=== PATIENT | female | born 1990 | race Caucasian/White ===

== ENCOUNTER 2018-05-14 10:43 | Emergency (ER) | payer SELFPAY ==
--- NOTE | 2018-05-14 11:54 | ER ---
Nurse's Notes [facility] Name: Matt Avila Age: 28 yrs Sex: Female : 1990 Arrival Date: 05/14/2018 Time: 10:45 Bed 15 Private MD: Diagnosis: Influenza due to identified novel influenza A virus with other respiratory manifestations Presentation: 05/14 10:58 Presenting complaint: Patient states: I have been having a cough for the last three la1 days with subjective fever and started having lower back pain yesterday with no reported urinary sx. Transition of care: patient was not received from another setting of care. Onset of symptoms was May 14, 2018. Risk Assessment: Do you want to hurt yourself or someone else? Patient reports no desire to harm self or others. Initial Sepsis Screen: Does the patient meet any 2 criteria? No. Patient's initial sepsis screen is negative. Does the patient have a suspected source of infection? No. Patient's initial sepsis screen is negative. Care prior to arrival: None. 10:58 Method Of Arrival: Ambulatory la1 10:58 Acuity: JACQUELINE 3 la1 Historical: - Allergies: 11:00 No Known Allergies; la1 - PMHx: 11:00 None; la1 - Immunization history:: Adult Immunizations up to date. - Social history:: Smoking status: Patient uses tobacco products, smokes one pack cigarettes per day. - Ebola Screening: : No symptoms or risks identified at this time. Screenin:30 Abuse screen: Denies threats or abuse. Denies injuries from another. Nutritional jl7 screening: No deficits noted. Tuberculosis screening: No symptoms or risk factors identified. Fall Risk None identified. Assessment: 11:30 General: Appears in no apparent distress. uncomfortable, Behavior is calm, cooperative, jl7 appropriate for age. Pain: Denies pain. Neuro: Level of Consciousness is awake, alert, obeys commands, Oriented to person, place, time, situation. Cardiovascular: Patient's skin is warm and dry. Respiratory: Airway is patent Respiratory effort is even, unlabored, Respiratory pattern is regular, symmetrical. Derm: Skin is pink, warm \T\ dry. Vital Signs: 10:59 BP 128 / 86; Pulse 112; Resp 18; Temp 97.2; Pulse Ox 98% on R/A; Weight 81.65 kg; la1 Height 5 ft. 3 in. (160.02 cm); 10:59 Body Mass Index 31.89 (81.65 kg, 160.02 cm) la1 ED Course: 10:45 Patient arrived in ED. rg4 10:59 Triage completed. la1 10:59 Arm band placed on left wrist. la1 11:20 Maikel Vasquez, RN is Primary Nurse. jl7 11:26 Pito Chavez PA is PHCP. cp 11:26 Wilson Martel MD is Attending Physician. cp 11:30 Patient has correct armband on for positive identification. Bed in low position. Call jl7 light in reach. Side rails up X 1. Pulse ox on. NIBP on. 12:16 No provider procedures requiring assistance completed. Patient did not have IV access jl7 during this emergency room visit. Administered Medications: No medications were administered Outcome: 11:54 Discharge ordered by MD. cp 12:16 Discharged to home ambulatory. jl7 12:16 Condition: stable 12:16 Discharge instructions given to patient, family, Instructed on discharge instructions, follow up and referral plans. medication usage, Demonstrated understanding of instructions, follow-up care, medications, Prescriptions given X 2. 12:17 Patient left the ED. jl7 Signatures: Jos Rueda, RN RN la1 Pito Chavez PA PA cp Garcia, Rubi rg4 Maikel Vasquez, EYAD RN jl7
--- NOTE | 2018-05-14 11:54 | EDPHYS ---
Physician Documentation [facility] Name: Matt Avila Age: 28 yrs Sex: Female : 1990 Arrival Date: 05/14/2018 Time: 10:45 Bed 15 Private MD: ED Physician Wilson Martel HPI: 05/14 11:45 This 28 yrs old Female presents to ER via Ambulatory with complaints of Flu cp Symptoms. 11:45 The patient or guardian reports cough, that is intermittent. cp 11:45 Onset: The symptoms/episode began/occurred 3 day(s) ago. Associated signs and symptoms: cp Pertinent positives: sore throat, back pain, Pertinent negatives: chest pain, diarrhea, vomiting. Severity of symptoms: in the emergency department the symptoms are unchanged. Historical: - Allergies: 11:00 No Known Allergies; la1 - PMHx: 11:00 None; la1 - Immunization history:: Adult Immunizations up to date. - Social history:: Smoking status: Patient uses tobacco products, smokes one pack cigarettes per day. - Ebola Screening: : No symptoms or risks identified at this time. ROS: 11:48 Constitutional: Negative for fever, poor PO intake. cp 11:48 Eyes: Negative for injury, pain, redness, and discharge. cp 11:48 ENT: Positive for sore throat, Negative for drainage from ear(s), ear pain, difficulty swallowing, difficulty handling secretions. 11:48 Neck: Negative for pain with movement, pain at rest, stiffness. 11:48 Cardiovascular: Negative for chest pain. 11:48 Respiratory: Positive for cough, Negative for shortness of breath, wheezing. 11:48 Abdomen/GI: Negative for abdominal pain, nausea, vomiting, and diarrhea. 11:48 Back: Positive for pain at rest. 11:48 : Negative for urinary symptoms. 11:48 Skin: Negative for cellulitis, rash. 11:48 Neuro: Negative for altered mental status, headache. 11:48 All other systems are negative. Exam: 11:51 Constitutional: The patient appears in no acute distress, alert, awake, non-toxic, well cp developed, well nourished. 11:51 Head/Face: Normocephalic, atraumatic. cp 11:51 Eyes: Periorbital structures: appear normal, Conjunctiva: normal, no exudate, no injection, Sclera: no appreciated abnormality, Lids and lashes: appear normal, bilaterally. 11:51 ENT: External ear(s): are unremarkable, Ear canal(s): are normal, clear, TM's: bulging, is not appreciated, bilaterally, dullness, bilaterally, erythema, is not appreciated, bilaterally, Nose: is normal, Mouth: Lips: moist, Oral mucosa: moist, Posterior pharynx: Airway: no evidence of obstruction, patent, Tonsils: with erythema, no enlargement, no exudate, Uvula: normal, swelling, is not appreciated, erythema, that is mild, exudate, is not appreciated. 11:51 Neck: ROM/movement: is normal, is supple, without pain, no range of motions limitations, no meningismus, no nuchal rigidity. 11:51 Chest/axilla: Inspection: normal, Palpation: is normal, no crepitus, no tenderness. 11:51 Cardiovascular: Rate: tachycardic, Rhythm: regular. 11:51 Respiratory: the patient does not display signs of respiratory distress, Respirations: normal, no use of accessory muscles, no retractions, no splinting, no tachypnea, labored breathing, is not present, Breath sounds: are clear throughout, no decreased breath sounds, no stridor, no wheezing. 11:51 Abdomen/GI: Inspection: abdomen appears normal, Bowel sounds: normal, in all quadrants, Palpation: abdomen is soft and non-tender, in all quadrants. 11:51 Back: pain, that is mild, ROM is normal, CVA tenderness, is absent. 11:51 Skin: cellulitis, is not appreciated, no rash present. Vital Signs: 10:59 BP 128 / 86; Pulse 112; Resp 18; Temp 97.2; Pulse Ox 98% on R/A; Weight 81.65 kg; la1 Height 5 ft. 3 in. (160.02 cm); 10:59 Body Mass Index 31.89 (81.65 kg, 160.02 cm) la1 MDM: 11:30 Patient medically screened. cp 11:45 Differential diagnosis: bronchitis, pneumonia UTI, gastroenteritis, meningitis, cp influenza, strep throat. 11:54 Data reviewed: vital signs, nurses notes, lab test result(s), and as a result, I will cp discharge patient. 11:54 Counseling: I had a detailed discussion with the patient and/or guardian regarding: the cp historical points, exam findings, and any diagnostic results supporting the discharge/admit diagnosis, lab results, to return to the emergency department if symptoms worsen or persist or if there are any questions or concerns that arise at home. 05/14 11:00 Order name: Strep; Complete Time: 11:52 la 05/14 11:00 Order name: Flu; Complete Time: 11:52 mi05/14 11:52 Interpretation: Reviewed. 05/14 11:33 Order name: Throat Culture EDMS Administered Medications: No medications were administered Disposition: 18:54 Co-signature as Attending Physician, Wilson Martel MD. Disposition: 05/14/18 11:54 Discharged to Home. Impression: Influenza due to identified novel influenza A virus with other respiratory manifestations. - Condition is Stable. - Discharge Instructions: Influenza, Adult. - Prescriptions for Ibuprofen 800 mg Oral Tablet - take 1 tablet by ORAL route every 8 hours As needed take with food; 30 tablet. Tessalon Perles 100 mg Oral Capsule - take 1 capsule by ORAL route every 8 hours As needed; 15 capsule. - Medication Reconciliation Form, Thank You Letter, Antibiotic Education, Prescription Opioid Use form. - Follow up: Private Physician; When: 2 - 3 days; Reason: Worsening of condition. - Problem is new. - Symptoms are unchanged. Signatures: Dispatcher [employer] EDGA Jos Rueda RN RN la1 Pito Chavez PA PA cp Leal, Jahala, RN RN jl7 Wilson Martel MD MD Corrections: (The following items were deleted from the chart) 11:52 11:47 Urine Dipstick-Ancillary ordered. cp cp 11:52 11:47 Urine Test ordered. cp cp 12:17 11:54 05/14/2018 11:54 Discharged to Home. Impression: Influenza due to identified jl7 novel influenza A virus with other respiratory manifestations. Condition is Stable. Forms are Medication Reconciliation Form, Thank You Letter, Antibiotic Education, Prescription Opioid Use. Follow up: Private Physician; When: 2 - 3 days; Reason: Worsening of condition. Problem is new. Symptoms are unchanged. cp
[2018-05-14 12:23] VITALS: BP 128/86; TEMP 97.2; O2SAT 98
== END 2018-05-14 12:17 | disposition home or self-care (01) ==
LOC: ER 10:43
DX: J10.1 Influenza due to other identified influenza virus with other respiratory manifestations (principal); F17.210 Nicotine dependence, cigarettes, uncomplicated
CPT/HCPCS: 87070; 87081; 87804; 99283

== ENCOUNTER 2018-05-17 12:01 | Inpatient (IN) | payer SELFPAY ==
[2018-05-17] MEDS ORDERED: HYDROCODONE/CHLORPHEN 5 ML/OSYR ONE (12:41)
[2018-05-17] MEDS ORDERED: IBUPROFEN 200 MG TAB PO ONE (12:42)
[2018-05-17] MEDS ORDERED: IBUPROFEN 400 MG TAB ONE (12:42)
[2018-05-17] MEDS ORDERED: NA CHLORIDE 0.9% 1,000 ML ONE (12:42)
[2018-05-17 12:59] LABS: Absolute Lymphocytes (CBC) 0.4 K/uL (0.7-4.9); Absolute Monocytes 0.1 K/uL (0.1-1.3); Absolute Neutrophil 2.6 K/uL (1.8-8.0); Basophils % 0.3 % (0-1.3); Hematocrit 45.1 % (36.0-45.0); Lymphocytes % 11.8 % (15.3-44.8); MPV 10.9 fL (7.6-11.3); Monocytes % 3.5 % (3.3-12.3); RBC Red Blood Cell Count 5.44 M/uL (3.86-4.86)
[2018-05-17 13:04] LABS: Potassium 3.4 mmol/L (3.5-5.1)
--- NOTE | 2018-05-17 13:14 | RAD REPORT ---
EXAM DESCRIPTION: Edvin Jay And Lat (2 Views)05/17/2018 1:08 pm CLINICAL HISTORY: Cough COMPARISON: None FINDINGS: Bilateral predominately central alveolar opacities are present. The heart is normal size IMPRESSION: Moderate bilateral prominently central alveolar opacities likely represent pneumonia. Th is should be followed until it is clear to help exclude a post obstructive process/underlying mass
[2018-05-17 13:30] LABS: Blood Morphology Comment NOT SEEN (NOT SEEN); Platelet Estimate DECR; Urine White Blood Cell Casts OK
[2018-05-17] MEDS ORDERED: ACETAMINOPHEN 500 MG TAB ONE (13:57)
[2018-05-17] MEDS ORDERED: AZITHROMYCIN IV 500 MG in NA CHLORIDE 0.9% 250 ML IVPB ONE ×2 (14:00→15:00)
[2018-05-17] MEDS ORDERED: CEFTRIAXONE/SWI 1gm 1 GM/10 ML SYR ONE (14:05)
[2018-05-17] MEDS ORDERED: LEVALBUTEROL 1.25 MG/3 ML NEB ONE ×2 (14:47→15:43)
--- NOTE | 2018-05-17 15:42 | ER ---
Nurse's Notes [facility] Name: Matt Avila Age: 28 yrs Sex: Female : 1990 Arrival Date: 05/17/2018 Time: 12:04 Bed 17 Private MD: Diagnosis: Influenza due to identified novel influenza A virus;Pneumonia, unspecified organism Presentation: 05/17 12:10 Presenting complaint: Mother states: she has been short of breath for 6 days, she has tw2 this cough, she was here 3 days diagnosed with the flu, she is 10 times worse, she is nauseous. Transition of care: patient was not received from another setting of care. Onset of symptoms was May 17, 2018. Risk Assessment: Do you want to hurt yourself or someone else? Patient reports no desire to harm self or others. Initial Sepsis Screen: Does the patient meet any 2 criteria? RR > 20 per min. HR > 90 bpm. Yes Does the patient have a suspected source of infection? Yes: Productive cough/pneumonia. Care prior to arrival: None. 12:10 Method Of Arrival: Ambulatory tw2 12:10 Acuity: JACQUELINE 3 tw2 Triage Assessment: 12:12 General: Appears uncomfortable, Behavior is cooperative. Pain: Complains of pain in tw2 chest. Respiratory: Reports shortness of breath at rest cough that is Onset: The symptoms/episode began/occurred 6 days now, the patient has moderate shortness of breath. 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 - Social history:: Smoking status: Patient uses tobacco products, smokes one-half pack cigarettes per day. - Ebola Screening: : Patient denies travel to an Ebola-affected area in the 21 days before illness onset. Screenin:46 Abuse screen: Denies threats or abuse. Denies injuries from another. Nutritional jl7 screening: No deficits noted. Tuberculosis screening: No symptoms or risk factors identified. Fall Risk IV access (20 points). Total Bergeron Fall Scale indicates No Risk (0-24 pts). Assessment: 12:30 General: Appears in no apparent distress. uncomfortable, Behavior is calm, cooperative, jl7 appropriate for age. Pain: Complains of pain in chest Pain currently is 10 out of 10 on a pain scale. Quality of pain is described as "It hurts so bad from coughing so much.". Neuro: Level of Consciousness is awake, alert, obeys commands, Oriented to person, place, time, situation. Cardiovascular: Rhythm is regular. Respiratory: Airway is patent Respiratory effort is even, unlabored, Respiratory pattern is regular, tachypnea Breath sounds are clear. GI: No signs and/or symptoms were reported involving the gastrointestinal system. : No signs and/or symptoms were reported regarding the genitourinary system. EENT: No signs and/or symptoms were reported regarding the EENT system. Derm: Skin is pink, warm \\T\\ dry. 13:27 Reassessment: Critical lab: Plt 89, ERP notified. jl7 14:25 Reassessment: Patient appears in no apparent distress at this time. Patient and/or jl7 family updated on plan of care and expected duration. Pain level reassessed. Patient is alert, oriented x 3, equal unlabored respirations, skin warm/dry/pink. 15:03 Reassessment: Pt c/o of sever rib pain from coughing, pt appears anxious, instructed pt jl7 to slow breathing down, pt able to take slow deep breaths, ERP notified, no new orders received at this time. 16:00 Reassessment: Patient appears in no apparent distress at this time. Patient and/or jl7 family updated on plan of care and expected duration. Pain level reassessed. Patient is alert, oriented x 3, equal unlabored respirations, skin warm/dry/pink. Vital Signs: 12:11 BP 134 / 74; Pulse 133; Resp 24; Temp 100.2; Pulse Ox 95% on R/A; Weight 81.65 kg; tw2 Height 5 ft. 3 in. (160.02 cm); Pain 10/10; 13:31 BP 128 / 80; Pulse 114; Resp 19 S; Temp 102.9(O); Pulse Ox 94% on R/A; jl7 14:15 Resp 22 S; Pulse Ox 88% on R/A; jl7 14:25 Pulse 102; Resp 16 S; Temp 102.6(O); Pulse Ox 92% on 2 lpm NC; jl7 15:02 BP 104 / 59; Pulse 112; Resp 26 S; Temp 100.0(O); Pulse Ox 97% on R/A; jl7 16:00 BP 115 / 64; Pulse 107; Resp 24 S; Pulse Ox 90% on R/A; jl7 16:07 Pulse Ox 93% on 2 lpm NC; jl7 12:11 Body Mass Index 31.89 (81.65 kg, 160.02 cm) tw2 ED Course: 12:04 Patient arrived in ED. rg4 12:11 Triage completed. tw2 12:12 Arm band placed on. tw2 12:14 Chaim Olea NP is PHCP. pm1 12:14 Jake Bernal MD is Attending Physician. pm1 12:19 Maikel Vasquez RN is Primary Nurse. jl7 12:30 Initial lab(s) drawn, by al, sent to lab. Inserted saline lock: 22 gauge in right jl7 antecubital area, using aseptic technique. Blood collected. 12:46 Patient has correct armband on for positive identification. Placed in gown. Bed in low jl7 position. Call light in reach. Side rails up X 1. Pulse ox on. NIBP on. Warm blanket given. 13:08 X-ray completed. Patient tolerated procedure well. Patient moved back from radiology. jb2 13:08 Chest Pa And Lat (2 Views) XRAY In Process Unspecified. EDMS 15:40 Eva Perry MD is Hospitalizing Provider. pm1 17:14 No provider procedures requiring assistance completed. Patient admitted, IV remains in jl7 place. intact, No redness/swelling at site. Administered Medications: 12:43 Drug: Ibuprofen 600 mg Route: PO; jl7 13:45 Follow up: Response: No adverse reaction; Temperature is increased jl7 12:43 Drug: NS 0.9% 1000 ml Route: IV; Rate: 1000 ml; Site: right antecubital; jl7 13:32 Follow up: IV Status: Completed infusion jl7 13:45 Follow up: IV Status: Completed infusion jl7 12:43 Drug: Tussionex Pennkinetic ER 5 ml Route: PO; jl7 13:32 Follow up: Response: No adverse reaction; No change in condition jl7 13:45 Drug: Tylenol 1000 mg Route: PO; jl7 15:00 Follow up: Response: No adverse reaction; Temperature is decreased jl7 14:20 Drug: Rocephin 1 grams Route: IV; Rate: calculated rate; Site: right antecubital; jl7 14:23 Follow up: Response: No adverse reaction; IV Status: Completed infusion jl7 14:25 Drug: AZITHromycin 500 mg Route: IVPB; Infused Over: 1 hrs; Site: right antecubital; jl7 15:25 Follow up: Response: No adverse reaction; IV Status: Completed infusion jl7 14:32 Drug: Xopenex 1.25 mg Route: Inhalation; jl7 17:11 Follow up: Response: No adverse reaction jl7 15:50 Drug: Xopenex 1.25 mg Route: Inhalation; jl7 17:10 Follow up: Response: No adverse reaction jl7 Outcome: 15:41 Decision to Hospitalize by Provider. pm1 17:14 Admitted to Med/surg accompanied by tech, via stretcher, room 223, with oxygen, with jl7 chart, Report called to EYAD Rhoades 17:14 Condition: stable 17:14 Discharge instructions given to patient, family, Instructed on the need for admit, Demonstrated understanding of instructions. 17:15 Patient left the ED. jl7 Signatures: Dispatcher [employer] EDGopi Morgan Patrick, PROFESSIONAL BASS FISHER PROFESSIONAL BASS FISHER pm1 Johana Newell RN RN elio2 Julieth Pineda rg4 Maikel Vasquez RN RN jl7
--- NOTE | 2018-05-17 15:42 | EDPHYS ---
Physician Documentation [facility] Name: Matt Avila Age: 28 yrs Sex: Female : 1990 Arrival Date: 05/17/2018 Time: 12:04 Bed 17 Private MD: ED Physician Jake Bernal HPI: 05/17 15:30 This 28 yrs old Female presents to ER via Ambulatory with complaints of pm1 Shortness Of Breath. 15:30 The patient has shortness of breath at rest. Onset: The symptoms/episode began/occurred pm1 6 day(s) ago. Duration: The symptoms are continuous, and are steadily getting worse. The patient's shortness of breath is aggravated by light activity, is alleviated by nothing. Associated signs and symptoms: Pertinent positives: non-productive cough, fever, Pertinent negatives: nausea, vomiting, diarrhea. Severity of symptoms: in the emergency department the symptoms are worse. The patient has not experienced similar symptoms in the past. The patient has been recently seen at the [facility] Emergency Department, 3 days ago with cough, fever, and shortness of breath with a duration of symptoms for 3 days. Diagnosed with the flu. 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 - Social history:: Smoking status: Patient uses tobacco products, smokes one-half pack cigarettes per day. - Ebola Screening: : Patient denies travel to an Ebola-affected area in the 21 days before illness onset. ROS: 15:30 Eyes: Negative for injury, pain, redness, and discharge, ENT: Negative for injury, pm1 pain, and discharge, Neck: Negative for injury, pain, and swelling, Cardiovascular: Negative for chest pain, palpitations, and edema. 15:30 Abdomen/GI: Negative for abdominal pain, nausea, vomiting, diarrhea, and constipation, Back: Negative for injury and pain, : Negative for injury, bleeding, discharge, and swelling, MS/Extremity: Negative for injury and deformity, Skin: Negative for injury, rash, and discoloration, Neuro: Negative for headache, weakness, numbness, tingling, and seizure. 15:30 Constitutional: Positive for body aches, chills, fever, poor PO intake. 15:30 Respiratory: Positive for cough, shortness of breath. Exam: 15:30 Constitutional: This is a well developed, well nourished patient who is awake, alert, pm1 and in no acute distress. Head/Face: Normocephalic, atraumatic. Eyes: Pupils equal round and reactive to light, extra-ocular motions intact. Lids and lashes normal. Conjunctiva and sclera are non-icteric and not injected. Cornea within normal limits. Periorbital areas with no swelling, redness, or edema. ENT: Nares patent. No nasal discharge, no septal abnormalities noted. Tympanic membranes are normal and external auditory canals are clear. Oropharynx with no redness, swelling, or masses, exudates, or evidence of obstruction, uvula midline. Mucous membranes moist. Neck: Trachea midline, no thyromegaly or masses palpated, and no cervical lymphadenopathy. Supple, full range of motion without nuchal rigidity, or vertebral point tenderness. No Meningismus. Chest/axilla: Normal chest wall appearance and motion. Nontender with no deformity. No lesions are appreciated. Cardiovascular: Regular rate and rhythm with a normal S1 and S2. No gallops, murmurs, or rubs. Normal PMI, no JVD. No pulse deficits. Respiratory: Lungs have equal breath sounds bilaterally, clear to auscultation and percussion. No rales, rhonchi or wheezes noted. No increased work of breathing, no retractions or nasal flaring. Abdomen/GI: Soft, non-tender, with normal bowel sounds. No distension or tympany. No guarding or rebound. No evidence of tenderness throughout. Back: No spinal tenderness. No costovertebral tenderness. Full range of motion. Skin: Warm, dry with normal turgor. Normal color with no rashes, no lesions, and no evidence of cellulitis. MS/ Extremity: Pulses equal, no cyanosis. Neurovascular intact. Full, normal range of motion. 15:30 Neuro: Orientation: is normal, Motor: is normal, moves all fours. Vital Signs: 12:11 BP 134 / 74; Pulse 133; Resp 24; Temp 100.2; Pulse Ox 95% on R/A; Weight 81.65 kg; tw2 Height 5 ft. 3 in. (160.02 cm); Pain 10/10; 13:31 BP 128 / 80; Pulse 114; Resp 19 S; Temp 102.9(O); Pulse Ox 94% on R/A; jl7 14:15 Resp 22 S; Pulse Ox 88% on R/A; jl7 14:25 Pulse 102; Resp 16 S; Temp 102.6(O); Pulse Ox 92% on 2 lpm NC; jl7 15:02 BP 104 / 59; Pulse 112; Resp 26 S; Temp 100.0(O); Pulse Ox 97% on R/A; jl7 16:00 BP 115 / 64; Pulse 107; Resp 24 S; Pulse Ox 90% on R/A; jl7 16:07 Pulse Ox 93% on 2 lpm NC; jl7 12:11 Body Mass Index 31.89 (81.65 kg, 160.02 cm) tw2 MDM: 12:15 Patient medically screened. pm1 15:25 Data reviewed: vital signs. Data interpreted: Pulse oximetry: on room air is 97 %. pm1 Interpretation: normal. 15:33 Counseling: I had a detailed discussion with the patient and/or guardian regarding: the pm1 historical points, exam findings, and any diagnostic results supporting the discharge/admit diagnosis, lab results, radiology results, the need for further work-up and treatment in the hospital. 15:33 Physician consultation: Eva Perry MD was called at 15:35, was contacted at 15:35, pm1 regarding admission, patient's condition, and will see patient would like further tests performed, urine test. 05/17 12:25 Order name: BMP; Complete Time: 13:20 pm1 05/17 12:25 Order name: CBC with Diff; Complete Time: 13:40 pm1 05/17 13:28 Order name: CBC Smear Scan; Complete Time: 13:40 EDMS 05/17 13:45 Order name: Blood Culture Adult (2) pm1 05/17 13:45 Order name: Procalcitonin; Complete Time: 15:18 pm1 05/17 16:03 Order name: Urine Dipstick--Ancillary (enter results) bd 05/17 12:25 Order name: Chest Pa And Lat (2 Views) XRAY; Complete Time: 13:20 pm1 05/17 16:03 Order name: Urine --Ancillary (enter results) bd 05/17 12:25 Order name: IV Saline Lock; Complete Time: 12:43 pm1 05/17 15:32 Order name: Urine Dipstick-Ancillary (obtain specimen); Complete Time: 16:00 pm1 05/17 15:32 Order name: Urine Test (obtain specimen); Complete Time: 16:00 pm1 Administered Medications: 12:43 Drug: Ibuprofen 600 mg Route: PO; jl7 13:45 Follow up: Response: No adverse reaction; Temperature is increased jl7 12:43 Drug: NS 0.9% 1000 ml Route: IV; Rate: 1000 ml; Site: right antecubital; jl7 13:32 Follow up: IV Status: Completed infusion jl7 13:45 Follow up: IV Status: Completed infusion jl7 12:43 Drug: Tussionex Pennkinetic ER 5 ml Route: PO; jl7 13:32 Follow up: Response: No adverse reaction; No change in condition jl7 13:45 Drug: Tylenol 1000 mg Route: PO; jl7 15:00 Follow up: Response: No adverse reaction; Temperature is decreased jl7 14:20 Drug: Rocephin 1 grams Route: IV; Rate: calculated rate; Site: right antecubital; jl7 14:23 Follow up: Response: No adverse reaction; IV Status: Completed infusion jl7 14:25 Drug: AZITHromycin 500 mg Route: IVPB; Infused Over: 1 hrs; Site: right antecubital; jl7 15:25 Follow up: Response: No adverse reaction; IV Status: Completed infusion jl7 14:32 Drug: Xopenex 1.25 mg Route: Inhalation; jl7 17:11 Follow up: Response: No adverse reaction jl7 15:50 Drug: Xopenex 1.25 mg Route: Inhalation; jl7 17:10 Follow up: Response: No adverse reaction jl7 Disposition: 18:53 Co-signature as Attending Physician, Jake Bernal MD Available for consultation at ps1 all times. . Disposition: 05/17/18 15:41 Hospitalization ordered by Eva Perry for Observation. Preliminary diagnosis are Pneumonia, unspecified organism, Influenza due to identified novel influenza A virus. - Bed requested for Telemetry/MedSurg (observation). - Status is Observation. jl7 - Condition is Stable. - Problem is new. - Symptoms have improved. UTI on Admission? No Signatures: Dispatcher [employer] EDMS Chichi Borden Chaim Henson, SHOE MAKER SHOE MAKER pm1 Johana Newell, RN RN tw2 Maikel Vasquez, RN RN jl7 Jake Bernal MD MD ps1 Corrections: (The following items were deleted from the chart) 16:26 15:41 Hospitalization Ordered by Eva Perry MD for Observation. Preliminary diagnosis bd is Pneumonia, unspecified organismInfluenza due to identified novel influenza A virus. Bed requested for Telemetry/MedSurg (observation). Status is Observation. Condition is Stable. Problem is new. Symptoms have improved. UTI on Admission? No. pm1 17:15 16:26 05/17/2018 15:41 Hospitalization Ordered by Eva Perry MD for Observation. jl7 Preliminary diagnosis is Pneumonia, unspecified organismInfluenza due to identified novel influenza A virus. Bed requested for Telemetry/MedSurg (observation). Status is Observation. Condition is Stable. Problem is new. Symptoms have improved. UTI on Admission? No. bd
[2018-05-17] MEDS: NA CHLORIDE 0.9% 1,000 ML IV SCH (18:40)
[2018-05-17 19:25] LABS: Urine Appearance CLEAR; Urine Bilirubin NEGATIVE (NEG); Urine Blood TRACE (NEG); Urine Color YELLOW; Urine Glucose NEGATIVE (NEG); Urine Protein 1+ (NEG); Urine Urobilinogen 0.2 mg/dL (0.2-1.0)
[2018-05-17 19:38] LABS: Urine Bacteria <20 /HPF (<20); Urine Culture Reflex Order REFLEXED; Urine Mucus 2+ /HPF (NONE SEEN)
[2018-05-17] MEDS: IPRATROPIUM BROM 0.5MG/2.5ML NEB PRN (21:00)
[2018-05-17] MEDS ORDERED: CEFTRIAXONE/SWI 1gm 1 GM/10 ML SYR IVP SCH (21:00)
[2018-05-17] MEDS ORDERED: POTASSIUM 25 MEQ EFFERV TAB PO ONE (21:00)
[2018-05-17] MEDS: ALBUTEROL 2.5 MG/3 ML NEB SOL NEB PRN (21:00)
[2018-05-17] MEDS: ACETAMINOPHEN 500 MG TAB PO PRN (22:23)
[2018-05-17] MEDS: guaiFENesin 100 MG/5 ML UCUP PO PRN (22:34)
--- NOTE | 2018-05-18 01:07 | P.PN ---
Date of Service: 05/18/18 I was called to evaluate the patient because she was dyspneic, on oxymask 50% O2sat was 88%. At arrival the patient was tachypneic, using accessory muscles, short sentences speaking. Physical exam revealed bilateral crackles. I will transfer the patient to ICU for close monitoring. Will order new flu test, last one was positive on 05/14/18. Despite her symptoms started 6 days ago, she has complicated flu, and still has indication to receive antiviral medication, according to recommendations. Will also add vancomycin, for potential MRSA post- influenza infection. Will order ABG, CXR and BiPAP. time in ICU spending 45 minutes.
[2018-05-18] MEDS: OSELTAMIVIR 75 MG CAP PO SCH ×3 (01:42→21:53)
[2018-05-18] MEDS ORDERED: VANCOMYCIN 1 GM/VIAL ONE (02:23)
[2018-05-18] MEDS ORDERED: NA CHLORIDE 0.9% 500 ML ONE (02:24)
[2018-05-18] MEDS ORDERED: VANCOMYCIN 500 MG/VIAL ONE (02:28)
[2018-05-18 02:41] LABS: Arterial Blood Carboxyhemoglob 0.9 % (0-1.5); Blood Gas Oxyhemoglobin 93.1 % (94-97); Blood O2 Saturation 94.6 % (92-98.5)
[2018-05-18] MEDS ORDERED: VANCOMYCIN 1.5 GM in NA CHLORIDE 0.9% 500 ML IVPB SCH ×2 (03:00→09:00)
[2018-05-18] MEDS: PHENOL 1.4% ORAL SPRAY 180ML MM PRN (03:13)
[2018-05-18] MEDS ORDERED: LORazepam 2 MG/ML VIAL IV ONE (03:44)
[2018-05-18] MEDS: NA CHLORIDE 0.9% 1,000 ML IV SCH (04:04)
[2018-05-18] MEDS ORDERED: LORazepam 2 MG/ML VIAL ONE (04:08)
--- NOTE | 2018-05-18 04:09 | HP ---
Date of Admission: 05/17/2018 Chief Complaint: Shortness of breath, generalized malaise, influenza. History Of Present Illness: The patient is a 28-year-old female with no significant past medical history, who was in her usual state of health until 3 days prior to admission when the patient was seen in the ER and was diagnosed with influenza. She was past the initial phase and therefore was not treated with Tamiflu after she was given symptomatic treatment. However, from the visit in the ER, she has been having progressive shortness of breath, generalized malaise, nausea but no vomiting, decreased appetite, and having pain all over. The patient's symptoms are constant, moderate, progressively worsening, therefore she came into the ER for further evaluation. She was somewhat hypoxic at 89% on room air. She was tachycardic. She was given some IV fluids. Her labs showed some low sodium and potassium. Did not have an elevated white count. Her chest x-ray did show some pneumonia in central alveolar area. The patient was then started on IV antibiotics and referred for admission. Past Medical History: None. Surgical History: None. Allergies: NO KNOWN DRUG ALLERGIES. Medications: The patient has been taking [id number] TheraFlu. Social History: The patient smokes 1 pack per day. Has been smoking for over 10 years. No alcohol or illicit drug use. Family History: Cousin has diabetes. Review of Systems: An 11-point system reviewed, negative except as per HPI. Physical Examination: Vital Signs: Blood pressure 134/74, pulse 133, respirations 24, temperature 100.2, T-max was 102.9, O2 is 95% on room air. BMI is 31. General: Awake, alert, oriented x3. Ill-appearing female, appears older than her stated age. HEENT: Normocephalic, atraumatic PERRLA, EOMI. Dry mucous membranes. Oropharynx is clear. Poor dentition. Conjunctivae anicteric. Neck: Supple. No JVD. Trachea midline. CV: S1, S2. Sinus tachycardia. Peripheral pulses present. No murmurs. Respiratory: Diminished breath sounds. No wheezing. The patient is tachypneic with use of accessory muscles. No stridor. Gastrointestinal: Abdomen is soft, nontender, nondistended. Positive bowel sounds. No guarding or rigidity. Extremities: No clubbing, cyanosis, or edema. No calf tenderness. Neuro: Cranial nerves 2 through 12 intact grossly. No focal neurological deficits. Speech is normal. Skin: No rashes. Normal skin turgor. Laboratory Data: Sodium 130, potassium 3.4, chloride 98, CO2 is 23, BUN 10, glucose 116, calcium 8.2. Procalcitonin 0.14. WBC 3.1, H and H 15.3 and 45.1, platelets 89, neutrophils 84%. Urine test negative. Blood cultures, sputum cultures are pending. Chest x-ray, personally reviewed, shows moderate bilateral prominent central alveolar opacities likely represent pneumonia. 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 Assessment And Plan: A 28-year-old female with: 1. Pneumonia secondary to influenza. We will start on Rocephin and azithromycin. Obtain cultures. 2. Hypoxia with some respiratory distress. Continue supplemental oxygen. Likely secondary to above. 3. Influenza. We will place on droplet precautions. The patient is also at the window for Tamiflu. 4. Obesity, BMI 31.8. 5. Hyponatremia. We will replace and monitor. 6. Hypokalemia. We will replace and monitor. 7. Deep vein thrombosis prophylaxis with SCDs and Lovenox. Plan: Admit the patient to Med-Surg, place as observation. DONALD Voice ID: [id number] MTDD
[2018-05-18 05:16] LABS: Absolute Lymphocytes (CBC) 0.5 K/uL (0.7-4.9); Absolute Monocytes 0.1 K/uL (0.1-1.3); Absolute Neutrophil 2.6 K/uL (1.8-8.0); Basophils % 0.2 % (0-1.3); Hematocrit 40.2 % (36.0-45.0); Lymphocytes % 14.7 % (15.3-44.8); MPV 10.8 fL (7.6-11.3); Monocytes % 2.1 % (3.3-12.3); RBC Red Blood Cell Count 4.81 M/uL (3.86-4.86)
[2018-05-18] MEDS ORDERED: NA CHLORIDE 0.9% 0 ML ONE (05:17)
[2018-05-18] MEDS ORDERED: PIPERACIL/TAZO 3.375 GM VIAL IV ONE (05:17)
[2018-05-18 05:30] LABS: ALT/SGPT 47 U/L (12-78); AST/SGOT 210 U/L (15-37); Albumin 2.6 g/dL (3.4-5.0); Alkaline Phosphatase 93 U/L (45-117); BUN Blood Urea Nitrogen 8 mg/dL (7-18); Bicarbonate 21 mmol/L (21-32); Bilirubin Total 0.3 mg/dL (0.2-1.0); Glucose Level 89 mg/dL (74-106); Potassium 3.5 mmol/L (3.5-5.1); Protein, Total 5.5 g/dL (6.4-8.2); Sodium Level 133 mmol/L (136-145)
[2018-05-18] MEDS ORDERED: PIPER/TAZO/NS 3.375gm 3.375 GM/100 ML BAG IVPB SCH ×3 (06:00→17:00)
[2018-05-18] MEDS ORDERED: POTASSIUM 25 MEQ EFFERV TAB PO ONE (06:05)
[2018-05-18] MEDS: ALBUTEROL 2.5 MG/3 ML NEB SOL NEB PRN ×2 (08:05→13:38)
[2018-05-18] MEDS: IPRATROPIUM BROM 0.5MG/2.5ML NEB PRN ×2 (08:06→13:38)
--- NOTE | 2018-05-18 08:17 | RAD REPORT ---
EXAM DESCRIPTION: RAD - Chest Single View - 05/18/2018 1:08 am CLINICAL HISTORY: SOB Chest pain. COMPARISON: Chest Pa And Lat (2 Views) dated 05/17/2018 FINDINGS: Portable technique limits examination quality. Mild worsening in bilateral pulmonary opacities noted since comparative study, likely indicating wors ening pneumonia or pulmonary edema. The heart is normal in size. No displaced fractures. IMPRESSION: Mild worsening pulmonary aeration since yesterday's comparative study.
[2018-05-18] MEDS: guaiFENesin 100 MG/5 ML UCUP PO PRN (08:18)
--- NOTE | 2018-05-18 08:42 | P.CNS ---
Date of Consult: 05/18/18 Reason for Consult: Respiratory failure Chief Complaint: Cough shortness of breath History of Present Illness: Patient is 28 years of age diagnosed with the flu admit it with worsening cough shortness of breath appear in the ICU a respiratory failure very hypoxic complains of fever chills bodyaches patient is an active smoker no prior medical history Allergies No Known Allergies Allergy (Verified 05/17/18 18:00) Home Medications: NK [No Home Meds] 05/17/18 - Past Medical/Surgical History Diabetic: No Past Surgical History: Reviewed- Non-Contributory - Social History Smoking Status: Current every day smoker Alcohol use: No CD- Drugs: No Caffeine use: Yes Place of Residence: Home Review of Systems 10-point ROS is otherwise unremarkable General: Weakness Respiratory: Cough, Shortness of Breath Physical Examination Temp Pulse Resp BP Pulse Ox 100 F 111 H 34 H 115/70 95 05/18/18 04:00 05/18/18 06:00 05/18/18 06:00 05/18/18 06:00 05/18/18 06:00 General: Alert, Moderate distress HEENT: Atraumatic Neck: Supple Respiratory: Clear to auscultation bilaterally, Diminished Cardiovascular: No edema, Regular rate/rhythm, Normal S1 S2 Laboratory Data (last 24 hrs) 05/18/18 04:49: Sodium 133 L, Potassium 3.5, BUN 8, Creatinine 0.68, Glucose 89 , Total Bilirubin 0.3, AST 210 H, ALT 47, Alkaline Phosphatase 93 05/18/18 04:49: WBC 3.1 L, Hgb 13.5, Hct 40.2, Plt Count 67 L* D 05/17/18 12:40: WBC 3.1 L, Hgb 15.3 H, Hct 45.1 H, Plt Count 89 L* 05/17/18 12:40: Sodium 130 L, Potassium 3.4 L, BUN 10, Creatinine 0.95, Glucose 116 H - Problems (1) Respiratory failure Current Visit: Yes Status: Acute Plan: Patient is 28 years of age admitted with acute respiratory failure diffuse bilateral ground-glass changes continue with BiPAP Dc IV fluids maintenance slight negative fluid balance continue with IV Zithromax and p.o. doxycycline bronchodilators BiPAP patient is an active smoker I have added prednisone patient has significant tattoos important to rule out HIV infection serum LDH ordered Qualifiers: Chronicity: acute
[2018-05-18] MEDS ORDERED: LORazepam 2 MG/ML VIAL IV PRN (08:45)
[2018-05-18] MEDS ORDERED: AZITHROMYCIN IV 500 MG in NA CHLORIDE 0.9% 250 ML IVPB SCH (09:00)
[2018-05-18] MEDS ORDERED: predniSONE 20 MG TAB PO SCH (09:00)
[2018-05-18] MEDS: METHYLPREDNISOLONE 40 MG INJ IV SCH ×2 (09:28→17:08)
[2018-05-18] MEDS: DOXYCYCLINE 100 MG CAP PO SCH ×2 (10:25→21:53)
[2018-05-18] MEDS: LORazepam 2 MG/ML VIAL IV PRN (11:24)
--- NOTE | 2018-05-18 13:04 | ECHO ---
HEIGHT: 5 ft 3 in WEIGHT: 178 lb 9.6 oz DATE OF STUDY: 05/18/[address]: Danny Zafar MD 2-DIMENSIONAL: YES M.MODE: YES DOPPLER: YES COLOR FLOW: YES TDS: NO PORTABLE: NO DEFINITY: NO BUBBLE STUDY: NO DIAGNOSIS: RESPIRATORY FAILURE CARDIAC HISTORY: CATHERIZATION: NO SURGERY: NO PROSTHETIC VALVE: NO PACEMAKER: NO MEASUREMENTS (cm) DIASTOLIC (NORMALS) SYSTOLIC (NORMALS) IVSd 1.0 (0.6-1.2) LA Diam 2.3 (1.9-4.0) LVEF 67% LVIDd 3.8 (3.5-5.7) LVIDs 2.4 (2.0-3.5) %FS 36% LVPWd 1.2 (0.6-1.2) Ao Diam 2.6 (2.0-3.7) 2 DIMENSIONAL ASSESSMENT: RIGHT ATRIUM: NORMAL LEFT ATRIUM: NORMAL RIGHT VENTRICLE: NORMAL LEFT VENTRICLE: NORMAL TRICUSPID VALVE: NORMAL MITRAL VALVE: NORMAL PULMONIC VALVE: NORMAL AORTIC VALVE: NORMAL PERICARDIAL EFFUSION: NONE AORTIC ROOT: NORMLA LEFT VENTRICULAR WALL MOTION: NORMAL DOPPLER/COLOR FLOW: NORMAL COMMENTS: NORMAL 2D ECHOCARDIOGRAM WITH DOPPLER. NO WALL MOTION ABNORMALITY. NO EFFUSION. TECHNOLOGIST: Marta WATTS
[2018-05-18] MEDS: ACETAMINOPHEN 500 MG TAB PO PRN (14:50)
--- NOTE | 2018-05-18 15:15 | PN ---
Date of Progress Note: 05/18/2018 History: The patient had deterioration in her condition overnight, and was transferred to the ICU, p laced on BiPAP. The patient reports worsening breathing. Medications: List reviewed. Physical Examination: Vital Signs: Temperature 100, heart rate 111, respirations 34, blood pressure 115/74, O2 saturations 95% on BiPAP, 45% FiO2. General: Awake, alert, oriented x3, ill-appearing female, obese, BMI 31. CV: S1, S2. Sinus tachycardia. Peripheral pulses present. Respiratory: Diminished breath sounds. Rhonchi heard throughout. No wheezing. The patient is slig htly tachypneic. Gastrointestinal: Abdomen is soft, nontender, nondistended. Positive bowel sounds. No guarding. N o rigidity. Extremities: No clubbing, cyanosis, or edema. Neurologic: Nonfocal. Laboratory Data: Sodium 133, potassium 3.5, chloride 103, CO2 21, BUN 8, creatinine 0.68, glucose 89 , lactate 1.6, calcium 7.1, LDH greater than 1000, albumin 2.6. ABG; pH 7.46, pCO2 27, PO2 71, bicar b 19. WBC 3.1, H and H 13.5 and 40.2, platelets 67, neutrophils 83%. Assessment: A 28-year-old female with: 1.Acute respiratory failure with hypoxia. We will continue on BiPAP, wean off as tolerated, seconda ry to post-influenza pneumonia. 2.Influenza A, start Tamiflu. 3.Post-influenza pneumonia. Continue antibiotics. Appreciate Dr. Zafar's input. 4.Pancytopenia, unclear etiology. The patient has white count of 3.1, neutrophils, absolute neutrop hil count is 2.6, platelets are down to 67, may be related to current infection. 5.Hyponatremia, improving. 6.Hypokalemia. We will replace and monitor. 7.Obesity, BMI 31.8. 8.Moderate protein-calorie malnutrition. Albumin is 2.6. Plan: Continue to monitor in ICU setting. Monitor for signs of ARDS. Steroids have been added due to patient's history of smoking and wheezing. Family at the bedside, updated. SA/MODL Voice ID: [id number] Report ID: [id number]
[2018-05-19] MEDS: ONDANSETRON 4 MG/2 ML VIAL IV PRN (00:24)
[2018-05-19] MEDS: LORazepam 2 MG/ML VIAL IV PRN ×4 (00:27→21:24)
[2018-05-19] MEDS: METHYLPREDNISOLONE 40 MG INJ IV SCH ×3 (00:27→17:33)
[2018-05-19 05:13] LABS: Absolute Lymphocytes (CBC) 0.7 K/uL (0.7-4.9); Absolute Monocytes 0.5 K/uL (0.1-1.3); Absolute Neutrophil 3.6 K/uL (1.8-8.0); Basophils % 0.2 % (0-1.3); Eosinophils % 0.1 % (0-4.4); Hematocrit 43.3 % (36.0-45.0); Lymphocytes % 14.7 % (15.3-44.8); MPV 11.1 fL (7.6-11.3); Monocytes % 10.7 % (3.3-12.3); RBC Red Blood Cell Count 5.13 M/uL (3.86-4.86)
[2018-05-19 05:28] LABS: ALT/SGPT 65 U/L (12-78); AST/SGOT 236 U/L (15-37); Albumin 2.8 g/dL (3.4-5.0); Alkaline Phosphatase 101 U/L (45-117); BUN Blood Urea Nitrogen 11 mg/dL (7-18); Bicarbonate 29 mmol/L (21-32); Bilirubin Total 0.4 mg/dL (0.2-1.0); Glucose Level 125 mg/dL (74-106); Potassium 4.4 mmol/L (3.5-5.1); Protein, Total 6.2 g/dL (6.4-8.2); Sodium Level 138 mmol/L (136-145)
[2018-05-19 05:43] LABS: Magnesium 2.3 mg/dL (1.8-2.4)
[2018-05-19] MEDS: DOXYCYCLINE 100 MG CAP PO SCH (09:02)
[2018-05-19] MEDS: OSELTAMIVIR 75 MG CAP PO SCH ×2 (09:02→21:10)
[2018-05-19 10:27] LABS: Arterial Blood Carboxyhemoglob 0.8 % (0-1.5); Blood Gas Oxyhemoglobin 95.1 % (94-97); Blood O2 Saturation 96.4 % (92-98.5)
--- NOTE | 2018-05-19 10:30 | RAD REPORT ---
EXAM DESCRIPTION: RAD - Chest Single View - 05/19/2018 10:22 am CLINICAL HISTORY: Pneumonia COMPARISON: May 18 TECHNIQUE: AP portable chest image was obtained 1020 hours . FINDINGS: Right upper lobe pneumonia findings have partially cleared since prior day study. There re sharmila patchy opacification in the lower right lung field. Left base pneumonia changes are stable. The re is better aeration of the left upper lung field. Heart size and pulmonary vasculature within normal limits. No measurable pleural effusion and no pneumothorax. No acute bony abnormality seen. No acute aortic findings suspected. IMPRESSION: Partial clearing of bilateral upper lobe pneumonia findings since prior day imaging. Bilateral lung base pneumonia findings are stable.
[2018-05-19] MEDS ORDERED: SOD CHLORIDE 0.65% NASAL SPRAY NAS PRN (11:34)
[2018-05-19] MEDS: ACETAMINOPHEN 500 MG TAB PO PRN (11:56)
[2018-05-19] MEDS ORDERED: SMZ./TMP. 800/160 MG TABLET PO SCH (12:08)
--- NOTE | 2018-05-19 12:14 | P.PN ---
Subjective Date of Service: 05/21/18 Chief Complaint: Pneumonia Patient's condition is stable she is still requiring high concentrations of oxygen was on BiPAP this morning Review of Systems General: Weakness Respiratory: Shortness of Breath Physical Examination - Vital Signs Temperature: 98.7 F Blood Pressure: 108/82 Pulse: 102 Respirations: 29 Pulse Ox (%): 100 - Physical Exam General: Alert, Cooperative, Moderate distress Neck: Supple Respiratory: Clear to auscultation bilaterally Cardiovascular: No edema, Normal pulses Assessment & Plan - Problems (Diagnosis) (1) Respiratory failure Current Visit: Yes Status: Acute Plan: Patient is doing much better she is off the BiPAP on nasal cannula oxygen shortness of breath has improved his HIV in a I have decreased the Levaquin to 500 mg daily change to p.o. prednisone transfer to the floor possible discharge in 1 or 2 days evaluate daily room air pulse ox Qualifiers: Chronicity: acute
--- NOTE | 2018-05-19 13:39 | PN ---
Date of Progress Note: 05/19/2018 Subjective: The patient is seen and examined. Chart reviewed and case discussed with RN and Dr. Servando fuentes. The patient is now off BiPAP, however, still requiring Venturi mask, states her breathing is still not back to baseline. Medications: List reviewed. Physical Examination: Vital Signs: Temperature 98.7, heart rate 102, blood pressure 108/82, respirations 29, and O2 of 100 % on Venturi mask at 50% FiO2. General: Awake, alert, and oriented x3, ill-appearing female, obese, BMI 31.5. CV: S1 and S2. Sinus tachycardia. Peripheral pulses present. No murmurs. Respiratory: Moving air well. Diminished breath sounds at the bases. No wheezing or crackles. Gastrointestinal: Abdomen is soft, nontender, and nondistended. Positive bowel sounds. Extremities: No clubbing, cyanosis, or edema. Neurologic: Nonfocal. Laboratory Data: Sodium 138, potassium 4.4, chloride 103, CO2 of 29, BUN 11, creatinine 0.7, glucose 125, calcium 8.4, and albumin 2.8. WBC 4.8, H and H of 14.4 and 43.3, platelets 92, neutrophils 74% . ABG; pH 7.48, PCO2 of 34, PO2 of 81, and bicarb 24. Blood cultures, no growth to date. Sputum cu ltures, pending. Chest x-ray, personally reviewed, shows partial clearing of the bilateral upper lob e pneumonia findings since prior day imaging, bilateral lung base pneumonia findings are stable. Assessment And Plan: A 28-year-old female with, 1.Acute respiratory failure with hypoxia. Wean off BiPAP. The patient is still requiring Venturi m ask secondary to post influenza pneumonia. Differential diagnosis includes PCP pneumonia. 2.Influenza A. Continue Tamiflu. 3.Pneumonia, likely post influenza or possibly PCP pneumonia. The patient has risk factors for jhon n immunodeficiency virus. The patient has been started on high-dose Bactrim. I appreciate Dr. Aidan fagan's input. 4.Thrombocytopenia and leukopenia, improving. 5.Hyponatremia. Sodium has been corrected. We will continue to monitor. 6.Hypokalemia, corrected. 7.Obesity, BMI 31.8. 8.Moderate protein-calorie malnutrition. Albumin is 2.6. PLAN: We will continue to monitor in the ICU setting. Wean off Ventimask as tolerated. Once on sara al cannula, can step down to the floor. Echocardiogram shows EF of 67%, otherwise no wall motion abn ormality. SA/MODL Voice ID: [id number] Report ID: [id number]
--- NOTE | 2018-05-19 14:11 | RAD REPORT ---
EXAM DESCRIPTION: CT - Thorax Wo Con - 05/19/2018 1:52 pm CLINICAL HISTORY: Pneumonia, possible PCP COMPARISON: Chest film May 19 TECHNIQUE: Axial 5 mm thick images of the chest were obtained without IV contrast. All CT scans are performed using dose optimization technique as appropriate and may include automated exposure control or mA/KV adjustment according to patient size. FINDINGS: Bilateral ground-glass opacities are scattered in both upper lobes. There are multiple irr egularly marginated consolidated mass densities in each upper lobe up to 20 mm in size. In each lower lobe there are more consolidated areas of airspace opacification present in the perihilar regions. M ultiple air bronchograms are present. There is septal thickening and ground-glass lower lobe opacific ation as well. No cavitation or pneumatocele formation identifiable. No pleural thickening or pleural effusion. No pneumothorax. Small nonspecific mediastinal lymph nodes are present. No endobronchial lesion. No gross aortic or pu lmonary artery finding suspected. Assessment is limited in the absence of IV contrast. No pericardia l thickening or effusion. No chest wall mass or abnormal axillary lymphadenopathy. IMPRESSION: Ground-glass opacification, septal thickening and multiple areas of an consolidated pare nchyma throughout all lung vo. Pattern would be consistent with the clinically suspected pneumocystis pneumonia. No cavitation or pneumatocele formation identifiable.
[2018-05-19] MEDS: SMZ./TMP. 800/160 MG TABLET PO SCH ×2 (15:33→21:10)
[2018-05-19] MEDS: guaiFENesin 100 MG/5 ML UCUP PO PRN (17:33)
[2018-05-20] MEDS: METHYLPREDNISOLONE 40 MG INJ IV SCH ×3 (00:21→17:45)
[2018-05-20 04:59] LABS: Absolute Lymphocytes (CBC) 0.9 K/uL (0.7-4.9); Absolute Monocytes 1.4 K/uL (0.1-1.3); Absolute Neutrophil 9.7 K/uL (1.8-8.0); Hematocrit 38.8 % (36.0-45.0); Lymphocytes % 7.4 % (15.3-44.8); MPV 10.2 fL (7.6-11.3); Monocytes % 11.9 % (3.3-12.3); RBC Red Blood Cell Count 4.64 M/uL (3.86-4.86)
[2018-05-20 05:18] LABS: ALT/SGPT 105 U/L (12-78); AST/SGOT 255 U/L (15-37); Albumin 2.7 g/dL (3.4-5.0); Alkaline Phosphatase 96 U/L (45-117); BUN Blood Urea Nitrogen 20 mg/dL (7-18); Bicarbonate 25 mmol/L (21-32); Bilirubin Total 0.4 mg/dL (0.2-1.0); Glucose Level 114 mg/dL (74-106); Magnesium 2.6 mg/dL (1.8-2.4); Potassium 3.8 mmol/L (3.5-5.1); Protein, Total 5.9 g/dL (6.4-8.2); Sodium Level 137 mmol/L (136-145)
[2018-05-20 08:01] LABS: HIV 1/2 Antibody Diff Not indicated.; HIV AG/AB 4TH GEN Non-reactive (Non-reactive)
[2018-05-20] MEDS: OSELTAMIVIR 75 MG CAP PO SCH ×2 (08:45→20:18)
[2018-05-20] MEDS: SMZ./TMP. 800/160 MG TABLET PO SCH (08:46)
[2018-05-20] MEDS: ACETAMINOPHEN 500 MG TAB PO PRN ×2 (08:46→17:45)
[2018-05-20] MEDS: guaiFENesin 100 MG/5 ML UCUP PO PRN (08:51)
[2018-05-20] MEDS ORDERED: POTASSIUM CL SA 10 MEQ TAB PO ONE (09:00)
[2018-05-20] MEDS ORDERED: Levofloxacin 750mg IV 750 MG/150 ML BAG IV SCH (11:00)
--- NOTE | 2018-05-20 13:20 | PN ---
Date of Progress Note: 05/20/2018 History: The patient seen and examined. Chart reviewed and case discussed with RN and Dr. Zafar. The patient seems to be doing better today, and has been off the BiPAP, however, still remains hypo xic with nasal cannula, has been switched back to Venti mask. Medications: List reviewed. Physical Examination: Vital Signs: Temperature 97.8, heart rate 99, blood pressure 112/70, respirations 25, O2 92% on Vent uri mask, 40% FiO2. General: Awake, alert, oriented x3. Mild respiratory distress. Ill-appearing, obese female. CV: S1, S2. Sinus tachycardia. Peripheral pulses present. Respiratory: Diminished breath sounds. Some rhonchi heard. No wheezing or crackles. The patient i s tachypneic with use of accessory muscles. Gastrointestinal: Abdomen is soft, nontender, nondistended. Positive bowel sounds. No guarding or rigidity. Extremities: No clubbing, cyanosis, or edema. Neurologic: Nonfocal. Laboratory Data: Sodium 137, potassium 3.8, chloride 103, CO2 25, BUN 20, creatinine 0.66, glucose 1 14, calcium 7.9, magnesium 2.6, AST 255, ALT 105, albumin 2.7. WBCs 12, H and H 13 and 38.8, platele ts 126, neutrophils 80%. Blood cultures, no growth to date. Assessment And Plan: A 28-year-old female with: 1.Acute respiratory failure with hypoxia. We will continue Venti mask as she is hypoxic on nasal ca nnula secondary to post-influenza pneumonia. The patient was switched to Bactrim yesterday for possi ble Pneumocystis carinii pneumonia. However, human immunodeficiency virus screening is negative. We will discontinue Bactrim and switch over to Levaquin. 2.Influenza A. We will continue Tamiflu and droplet precautions. 3.Pneumonia, post-influenza. 4.Thrombocytopenia, improving. No signs of bleeding. 5.Obesity, BMI 31.8. 6.Moderate protein calorie malnutrition. Albumin is improving. Plan: We will continue weaning off Venti mask as tolerated. For now, she is unable to switch back t o nasal cannula. Will likely step-down to regular floor if her O2 saturations remain stable. SA/MODL Voice ID: [id number] Report ID: [id number]
[2018-05-20] MEDS: LORazepam 2 MG/ML VIAL IV PRN (20:19)
[2018-05-21] MEDS: ACETAMINOPHEN 500 MG TAB PO PRN ×2 (00:14→05:19)
[2018-05-21] MEDS: METHYLPREDNISOLONE 40 MG INJ IV SCH ×2 (00:14→09:04)
[2018-05-21] MEDS: IPRATROPIUM BROM 0.5MG/2.5ML NEB PRN ×2 (02:36→07:56)
[2018-05-21] MEDS: ALBUTEROL 2.5 MG/3 ML NEB SOL NEB PRN ×2 (02:36→07:56)
[2018-05-21 05:30] LABS: Absolute Lymphocytes (CBC) 0.4 K/uL (0.7-4.9); Absolute Monocytes 0.8 K/uL (0.1-1.3); Absolute Neutrophil 7.1 K/uL (1.8-8.0); Basophils % 0.1 % (0-1.3); Hematocrit 36.9 % (36.0-45.0); Lymphocytes % 4.6 % (15.3-44.8); MPV 10.6 fL (7.6-11.3); Monocytes % 9.4 % (3.3-12.3); RBC Red Blood Cell Count 4.37 M/uL (3.86-4.86)
[2018-05-21 05:58] LABS: ALT/SGPT 108 U/L (12-78); AST/SGOT 119 U/L (15-37); Albumin 2.8 g/dL (3.4-5.0); Alkaline Phosphatase 83 U/L (45-117); BUN Blood Urea Nitrogen 20 mg/dL (7-18); Bicarbonate 22 mmol/L (21-32); Bilirubin Total 0.3 mg/dL (0.2-1.0); Glucose Level 165 mg/dL (74-106); Magnesium 2.7 mg/dL (1.8-2.4); Potassium 3.8 mmol/L (3.5-5.1); Protein, Total 5.9 g/dL (6.4-8.2); Sodium Level 136 mmol/L (136-145)
[2018-05-21 05:59] VITALS: BMI 29.9
[2018-05-21] MEDS ORDERED: DICYCLOMINE HCL 10 MG CAP PO ONE (09:00)
[2018-05-21] MEDS ORDERED: POTASSIUM CL SA 10 MEQ TAB PO ONE (09:00)
[2018-05-21] MEDS: OSELTAMIVIR 75 MG CAP PO SCH ×2 (09:04→20:20)
[2018-05-21] MEDS: predniSONE 20 MG TAB PO SCH ×2 (11:51→20:20)
[2018-05-21] MEDS: levoFLOXacin 500 MG TAB PO SCH (11:52)
--- NOTE | 2018-05-21 12:30 | PN ---
Patient seen and examined, chart reviewed and case discussed with RN. The patient is feeling signifi cantly better. Medications: List reviewed. Physical Examination: Vital Signs: Temperature 98.7, heart rate 102, blood pressure 108/82, respirations 29, O2 of 100% on 3 L via nasal cannula. General: Awake, alert, oriented x3. Minimal respiratory distress. CV: S1-S2. Sinus tachycardia. Peripheral pulses present. Respiratory: Diminished breath sounds and some rhonchi heard. No wheezing. Gastrointestinal: Abdomen is soft, nontender, nondistended. Positive bowel sounds. Extremities: No clubbing, cyanosis, or edema. Neurologic: Nonfocal. Laboratory Data: Sodium 136, potassium 3.8, chloride 104, CO2 22, BUN 28, creatinine 0.7, calcium 7. 8, magnesium 2.7. AST 119, ALT 108. WBC 8.2, H and H 12.3, 36.9, platelets 145. Blood cultures neg ative to date. Assessment And Plan: A 28-year-old female with 1.Acute respiratory failure with hypoxia, now on nasal cannula. We will continue to wean off as jacinto erated. 2.Influenza A. Continue Tamiflu, droplet precautions. 3.Pneumonia post influenza. Continue Levaquin. 4.Thrombocytopenia, improving. 5.Obesity, BMI 31.8. 6.Moderate protein-calorie malnutrition. Albumin is 2.8, improving. Continue with protein suppleme ntation. Plan: Transfer to regular floor likely discharge in the next 24-48 hours. /DEYVI Voice ID: [id number] Report ID: [id number]
[2018-05-21] MEDS: HYDROCODONE/APAP 7.5/325 MG TAB PO PRN (16:54)
--- NOTE | 2018-05-21 18:06 | RAD REPORT ---
EXAM DESCRIPTION: RAD - Abdomen 1 View (KUB) - 05/21/2018 5:53 pm CLINICAL HISTORY: Abdomen pain. FINDINGS: The bowel gas pattern is unremarkable. No abnormal calcification is displayed
[2018-05-21] MEDS: LORazepam 2 MG/ML VIAL IV PRN (20:27)
[2018-05-21] MEDS: PHENOL 1.4% ORAL SPRAY 180ML MM PRN (20:28)
[2018-05-22] MEDS: HYDROCODONE/APAP 7.5/325 MG TAB PO PRN ×3 (04:35→18:13)
[2018-05-22 06:33] LABS: ALT/SGPT 87 U/L (12-78); AST/SGOT 57 U/L (15-37); Albumin 2.8 g/dL (3.4-5.0); Alkaline Phosphatase 72 U/L (45-117); BUN Blood Urea Nitrogen 16 mg/dL (7-18); Bicarbonate 25 mmol/L (21-32); Bilirubin Total 0.5 mg/dL (0.2-1.0); Glucose Level 122 mg/dL (74-106); Potassium 4.7 mmol/L (3.5-5.1); Protein, Total 5.8 g/dL (6.4-8.2); Sodium Level 138 mmol/L (136-145)
[2018-05-22] MEDS: OSELTAMIVIR 75 MG CAP PO SCH ×2 (08:50→20:57)
[2018-05-22] MEDS: levoFLOXacin 500 MG TAB PO SCH (08:50)
[2018-05-22] MEDS: predniSONE 20 MG TAB PO SCH ×2 (08:51→20:57)
[2018-05-22] MEDS ORDERED: DOCUSATE NA 100 MG CAP PO PRN (09:20)
[2018-05-22] MEDS ORDERED: POLYETHYL GLY 3350 17 GM/DOSE PO PRN (09:20)
[2018-05-22] MEDS: ONDANSETRON 4 MG/2 ML VIAL IV PRN ×2 (11:42→21:00)
[2018-05-22] MEDS: PHENOL 1.4% ORAL SPRAY 180ML MM PRN (11:43)
[2018-05-22] MEDS: guaiFENesin 100 MG/5 ML UCUP PO PRN (11:43)
--- NOTE | 2018-05-22 17:20 | PN ---
Date of Progress Note: 05/22/2018 Subjective: The patient seen and examined, chart reviewed, and case discussed with RN and Dr. Lion ernst. The patient states she is doing better, however, still complaining of some abdominal pain, which is radiating towards her back. Medications: List reviewed. Objective: Vital Signs: Temperature 97.1, heart rate 63, blood pressure 123/69, respirations 18, O2 of 95% on 4 L via nasal cannula. General: Awake, alert, oriented x3. Mildly ill appearing female. CV: S1, S2. Regular rate and rhythm. Peripheral pulses present. Respiratory: Moving air well bilaterally. No wheezing or stridor. Gastrointestinal: Abdomen is soft. Mild tenderness to palpation. No rebound or guarding. Bowel so unds positive. Extremities: No clubbing, cyanosis, or edema. Neurologic: Nonfocal. Laboratory Data: Sodium 138, potassium 4.7, chloride 105, CO2 25, BUN 16, creatinine 0.55, glucose 1 28, calcium 7.6, AST 57, ALT 87, albumin 2.8. WBC 8.2, H and H 12.3, 36.9, platelets 145. Blood cul tures, no growth to date. KUB from 05/21/2018 shows no abnormal calcification displayed. Bowel gas pattern is normal. Assessment: A 28-year-old female with, 1.Acute respiratory failure with hypoxia. Now switched over to nasal cannula. We will continue to wean off as tolerated improving. 2.Influenza A. We will continue Tamiflu and droplet precautions. 3.Pneumonia post influenza. Continue Levaquin. 4.Thrombocytopenia, improving. 5.Generalized abdominal pain, unclear etiology. KUB is negative. The patient is constipated. We w ill give trial of stool softeners. 6.Obesity, BMI of 31.8. 7.Moderate protein-calorie malnutrition. Albumin 2.8. 8.Elevated liver enzymes, improving, likely due to acute medical condition. Plan: We will continue steroids and antibiotics. Continue Tamiflu for now. Wean off oxygen. Likel y discharge in next 24-48 hours. SA/MODL Voice ID: [id number] Report ID: [id number]
[2018-05-23] MEDS: ONDANSETRON 4 MG/2 ML VIAL IV PRN ×2 (00:34→21:57)
[2018-05-23] MEDS: HYDROCODONE/APAP 7.5/325 MG TAB PO PRN ×4 (00:42→22:39)
[2018-05-23] MEDS: levoFLOXacin 500 MG TAB PO SCH (07:51)
[2018-05-23] MEDS: predniSONE 20 MG TAB PO SCH ×2 (07:51→20:48)
--- NOTE | 2018-05-23 10:10 | RAD REPORT ---
EXAM DESCRIPTION: Edvin Single View05/23/2018 9:58 am CLINICAL HISTORY: Shortness of breath COMPARISON: May 19, 2018 FINDINGS: Bilateral pulmonary opacities have partially resolved. The heart is normal size IMPRESSION: Partial resolution in bilateral pulmonary opacities which may represent ARDS, pneumonia or pulmonary edema
[2018-05-23] MEDS: ACETAMINOPHEN 500 MG TAB PO PRN (12:44)
--- NOTE | 2018-05-23 15:04 | P.PN ---
Subjective Date of Service: 05/23/18 Chief Complaint: Pneumonia Subjective: No C/O voiced, Improving Patient seen and examined at bedside. No family at bedside. Chart reviewed and case discussed with nursing staff. Review of Systems 10-point ROS is otherwise unremarkable Physical Examination - Vital Signs Temperature: 97.8 F Blood Pressure: 104/59 Pulse: 68 Respirations: 17 Pulse Ox (%): 96 - Physical Exam General: Alert, In no apparent distress, Oriented x3 HEENT: Atraumatic, PERRLA, EOMI Neck: Supple, JVD not distended Respiratory: Clear to auscultation bilaterally, Normal air movement Cardiovascular: Regular rate/rhythm, Normal S1 S2 Gastrointestinal: Normal bowel sounds, No tenderness Musculoskeletal: No tenderness Integumentary: No rashes Neurological: Normal speech, Normal tone, Normal affect Lymphatics: No axilla or inguinal lymphadenopathy - Studies Microbiology Data (last 24 hrs): 05/17/18 14:20 Blood - Blood Aerobic Blood Culture - Final No growth in 5 days. 05/17/18 14:20 Blood - Blood Anaerobic Blood Culture - Final No growth in 5 days. 05/17/18 14:05 Blood - Blood Aerobic Blood Culture - Final No growth in 5 days. 05/17/18 14:05 Blood - Blood Anaerobic Blood Culture - Final No growth in 5 days. Assessment And Plan - Current Problems (Diagnosis) (1) Respiratory failure Current Visit: Yes Status: Acute Qualifiers: Chronicity: acute (2) Hypoxia Current Visit: Yes Status: Acute (3) Influenza A Current Visit: Yes Status: Acute (4) Pneumonia Current Visit: Yes Status: Acute Qualifiers: Pneumonia type: due to unspecified organism Laterality: unspecified laterality Lung location: unspecified part of lung Qualified Code(s): J18.9 - Pneumonia, unspecified organism (5) Thrombocytopenia Current Visit: Yes Status: Acute (6) Obesity (BMI 30-39.9) Current Visit: Yes Status: Chronic (7) Protein calorie malnutrition Current Visit: Yes Status: Acute Qualifiers: Protein-calorie malnutrition severity: moderate Qualified Code(s): E44.0 - Moderate protein-calorie malnutrition (8) Elevated LFTs Current Visit: Yes Status: Acute - Plan This is a 28-year-old female with: Acute respiratory failure with hypoxia Improving the continues to desire with exertion, even on nasal cannula Now on 4 L nasal cannula. We will continue to wean as tolerated. Influenza A Patient completed a course of Tamiflu. Continue supportive care is needed Pneumonia, post influenza Continue Levaquin Thrombocytopenia Improving Obesity, BMI of 31.8. Moderate protein-calorie malnutrition. Albumin 2.8. Elevated liver enzymes, improving, likely due to acute medical condition. DVT prophylaxis: None encourage ambulation GI prophylaxis: None Diet: Regular Disposition: Continue steroids and antibiotics. Continue to wean off oxygen. We will discharge home once weaned off oxygen. Discharge Plan: Home
[2018-05-23] MEDS: guaiFENesin 100 MG/5 ML UCUP PO PRN (20:53)
[2018-05-23] MEDS: PHENOL 1.4% ORAL SPRAY 180ML MM PRN (20:55)
[2018-05-23] MEDS: LORazepam 2 MG/ML VIAL IV PRN (22:44)
[2018-05-24] MEDS: HYDROCODONE/APAP 7.5/325 MG TAB PO PRN ×4 (04:40→22:33)
[2018-05-24] MEDS: guaiFENesin 100 MG/5 ML UCUP PO PRN ×2 (04:41→20:00)
[2018-05-24] MEDS: PHENOL 1.4% ORAL SPRAY 180ML MM PRN (04:42)
[2018-05-24 07:55] LABS: Absolute Monocytes 0.7 K/uL (0.1-1.3); Absolute Neutrophil 10.6 K/uL (1.8-8.0); Basophils % 0.1 % (0-1.3); Eosinophils % 0.7 % (0-4.4); Lymphocytes % 8.1 % (15.3-44.8); MPV 9.6 fL (7.6-11.3); Monocytes % 5.7 % (3.3-12.3); RBC Red Blood Cell Count 5.13 M/uL (3.86-4.86)
[2018-05-24 08:10] LABS: BUN Blood Urea Nitrogen 16 mg/dL (7-18); Bicarbonate 28 mmol/L (21-32); Glucose Level 98 mg/dL (74-106); Potassium 4.3 mmol/L (3.5-5.1); Sodium Level 137 mmol/L (136-145)
[2018-05-24 08:56] LABS: Platelet Estimate ADEQ
[2018-05-24 08:57] LABS: Blood Morphology Comment NOT SEEN (NOT SEEN); Platelets, Giant PRESENT; Urine White Blood Cell Casts OK
[2018-05-24] MEDS: predniSONE 20 MG TAB PO SCH ×2 (09:32→20:00)
[2018-05-24] MEDS: levoFLOXacin 500 MG TAB PO SCH (09:32)
--- NOTE | 2018-05-24 12:59 | P.PN ---
Subjective Date of Service: 05/24/18 Chief Complaint: Pneumonia Subjective: No C/O voiced, Improving Patient seen and examined at bedside. No family at bedside. Chart reviewed and case discussed with nursing staff. Review of Systems 10-point ROS is otherwise unremarkable Physical Examination - Vital Signs Temperature: 97.4 F Blood Pressure: 112/77 Pulse: 69 Respirations: 18 Pulse Ox (%): 95 - Physical Exam General: Alert, In no apparent distress, Oriented x3 HEENT: Atraumatic, PERRLA, EOMI Neck: Supple, JVD not distended Respiratory: Clear to auscultation bilaterally, Normal air movement Cardiovascular: Regular rate/rhythm, Normal S1 S2 Gastrointestinal: Normal bowel sounds, No tenderness Musculoskeletal: No tenderness Integumentary: No rashes Neurological: Normal speech, Normal tone, Normal affect Lymphatics: No axilla or inguinal lymphadenopathy Assessment And Plan - Current Problems (Diagnosis) (1) Respiratory failure Current Visit: Yes Status: Acute Qualifiers: Chronicity: acute (2) Hypoxia Current Visit: Yes Status: Acute (3) Influenza A Current Visit: Yes Status: Acute (4) Pneumonia Current Visit: Yes Status: Acute Qualifiers: Pneumonia type: due to unspecified organism Laterality: unspecified laterality Lung location: unspecified part of lung Qualified Code(s): J18.9 - Pneumonia, unspecified organism (5) Thrombocytopenia Current Visit: Yes Status: Acute (6) Obesity (BMI 30-39.9) Current Visit: Yes Status: Chronic (7) Protein calorie malnutrition Current Visit: Yes Status: Acute Qualifiers: Protein-calorie malnutrition severity: moderate Qualified Code(s): E44.0 - Moderate protein-calorie malnutrition (8) Elevated LFTs Current Visit: Yes Status: Acute - Plan This is a 28-year-old female with: Acute respiratory failure with hypoxia Continues to improve. Now on 2 L nasal cannula. We will continue to wean as tolerated. Influenza A Patient completed a course of Tamiflu. Continue supportive care as needed Pneumonia, post influenza Continue Levaquin Thrombocytopenia Improving Obesity, BMI of 31.8. Moderate protein-calorie malnutrition. Albumin 2.8. Elevated liver enzymes, improving, likely due to acute medical condition. DVT prophylaxis: None encourage ambulation GI prophylaxis: None Diet: Regular Disposition: Continue steroids and antibiotics. Continue to wean off oxygen. We will discharge home once weaned off oxygen.
[2018-05-24] MEDS: ACETAMINOPHEN 500 MG TAB PO PRN (19:59)
[2018-05-25] MEDS: ACETAMINOPHEN 500 MG TAB PO PRN (01:21)
[2018-05-25] MEDS: guaiFENesin 100 MG/5 ML UCUP PO PRN (01:25)
[2018-05-25] MEDS: PHENOL 1.4% ORAL SPRAY 180ML MM PRN (01:26)
[2018-05-25] MEDS: HYDROCODONE/APAP 7.5/325 MG TAB PO PRN ×2 (03:56→10:18)
[2018-05-25 08:15] VITALS: O2SAT 91
[2018-05-25] MEDS: levoFLOXacin 500 MG TAB PO SCH (09:33)
[2018-05-25] MEDS: predniSONE 20 MG TAB PO SCH (09:34)
[2018-05-25 10:30] VITALS: BP 113/60; TEMP 97.6
--- NOTE | 2018-05-25 14:23 | P.DS ---
Admission Date: 05/18/18 Discharge Date: 05/25/18 Disposition: ROUTINE DISCHARGE Discharge Condition: GOOD Reason for Admission: Pneumonia Consultations: Pulmonology - Problems (1) Respiratory failure Status: Acute Qualifiers: Chronicity: acute (2) Hypoxia Status: Acute (3) Influenza A Status: Acute (4) Pneumonia Status: Acute Qualifiers: Pneumonia type: due to unspecified organism Laterality: unspecified laterality Lung location: unspecified part of lung Qualified Code(s): J18.9 - Pneumonia, unspecified organism (5) Thrombocytopenia Status: Acute (6) Obesity (BMI 30-39.9) Status: Chronic (7) Protein calorie malnutrition Status: Acute Qualifiers: Protein-calorie malnutrition severity: moderate Qualified Code(s): E44.0 - Moderate protein-calorie malnutrition (8) Elevated LFTs Status: Acute Brief History of Present Illness: The patient is a 28-year-old female with no significant past medical history, who was in her usual state of health until 3 days prior to admission when the patient was seen in the ER and was diagnosed with influenza. She was past the initial phase and therefore was not treated with Tamiflu after she was given symptomatic treatment. However, from the visit in the ER, she has been having progressive shortness of breath, generalized malaise, nausea but no vomiting, decreased appetite, and having pain all over. The patient's symptoms are constant, moderate, progressively worsening, therefore she came into the ER for further evaluation. She was somewhat hypoxic at 89% on room air. She was tachycardic. She was given some IV fluids. Her labs showed some low sodium and potassium. Did not have an elevated white count. Her chest x-ray did show some pneumonia in central alveolar area. The patient was then started on IV antibiotics and referred for admission Hospital Course: Patient was admitted with: Acute respiratory failure with hypoxia She was started on IV steroids, IV antibiotics and Tamiflu. She was provided oxygen. Initially, she did require BiPAP usage. She was weaned off BiPAP and converted to nasal cannula. She was eventually weaned off of oxygen. Prior to discharge, she was satting well on room air, even with exertion. Influenza A Patient completed a course of Tamiflu. Pneumonia, post influenza Patient was started on IV antibiotics. Antibiotics was converted to oral Levaquin. She was discharged on oral Levaquin to complete a 7 day course. She otherwise remains stable throughout the stay. At the time of discharge, patient was alert oriented x3, hemodynamically stable and satting well on room air. She was ambulating without concerns, tolerating an oral diet and was asymptomatic. Vital Signs/Physical Exam: Temp Pulse Resp BP Pulse Ox 97.6 F 71 18 113/60 97 05/25/18 08:34 05/25/18 08:34 05/25/18 08:34 05/25/18 08:34 05/25/18 08:34 General: Alert, In no apparent distress, Oriented x3 HEENT: Atraumatic, PERRLA, EOMI Neck: Supple, JVD not distended Respiratory: Clear to auscultation bilaterally, Normal air movement Cardiovascular: Regular rate/rhythm, Normal S1 S2 Gastrointestinal: Normal bowel sounds, No tenderness Musculoskeletal: No tenderness Integumentary: No rashes Neurological: Normal speech, Normal tone, Normal affect Lymphatics: No axilla or inguinal lymphadenopathy Laboratory Data at Discharge: WBC 12.4 K/uL (4.3-10.9) H D 05/24/18 07:34 Hgb 14.3 g/dL (12.0-15.0) 05/24/18 07:34 Hct 43.0 % (36.0-45.0) D 05/24/18 07:34 Plt Count 264 K/uL (152-406) D 05/24/18 07:34 Sodium 137 mmol/L (136-145) 05/24/18 07:34 Potassium 4.3 mmol/L (3.5-5.1) 05/24/18 07:34 BUN 16 mg/dL (7-18) 05/24/18 07:34 Creatinine 0.56 mg/dL (0.55-1.3) 05/24/18 07:34 Glucose 98 mg/dL (74-106) 05/24/18 07:34 Magnesium 2.7 mg/dL (1.8-2.4) H 05/21/18 04:59 Total Bilirubin 0.5 mg/dL (0.2-1.0) 05/22/18 05:38 AST 57 U/L (15-37) H 05/22/18 05:38 ALT 87 U/L (12-78) H 05/22/18 05:38 Alkaline Phosphatase 72 U/L (45-117) 05/22/18 05:38 Home Medications: levoFLOXacin [Levaquin*] 500 mg PO DAILY #2 tab 05/25/18 predniSONE [Prednisone*] 20 mg PO BID #14 tab 05/25/18 New Medications: levoFLOXacin [Levaquin*] 500 mg PO DAILY #2 tab predniSONE [Prednisone*] 20 mg PO BID #14 tab Patient Discharge Instructions: Please follow up with your primary care physician in 2-3 days. Please follow up with Pulmonology in 2 weeks. Information provided to you. Please return tot he ER for worsening symptoms. Diet: Regular Activity: Ad rossy Followup: Danny Zafar MD [ACTIVE - CAN ADMIT] - 1-2 Weeks Time spent managing pt's care (in minutes): 55
== END 2018-05-25 11:30 | disposition home or self-care (01) | DRG 193 ==
LOC: ER 12:01 → ERHOLD 15:44 → 2ND 16:53 → 3RD-ICU 05-18 00:45 → OBSVTOIN 05-18 07:16 → 2ND 05-21 17:05
PROVIDERS: ADMIT Family Medicine; ATTEND Family Medicine
PROC: 5A09457 Assistance with Respiratory Ventilation, 24-96 Consecutive Hours, Continuous Positive Airway Pressure (ICD-10-PCS; principal; 2018-05-18)
DX: J09.X1 Influenza due to identified novel influenza A virus with pneumonia (principal); J96.01 Acute respiratory failure with hypoxia; E44.0 Moderate protein-calorie malnutrition; E87.1 Hypo-osmolality and hyponatremia; D61.818 Other pancytopenia; D69.6 Thrombocytopenia, unspecified; R94.5 Abnormal results of liver function studies; Z68.31 Body mass index [BMI] 31.0-31.9, adult; F17.210 Nicotine dependence, cigarettes, uncomplicated; E87.6 Hypokalemia
CPT/HCPCS: 36415; 71045; 71046; 71250; 74018; 80048; 80053; 81001; 81025; 82805; 83605; 83615; 83735; 84145; 85025; 87040; 87086; 87088; 87389; 87804; 93306; 94640; 94660; 94760; 96361; 96365; 96375; 97110; 97116; 97163; 99285; G0378; J0456; J0696; J2405; J2543; J2920; J7030; J7512

== ENCOUNTER 2018-05-30 14:28 | Inpatient (IN) | payer SELFPAY ==
--- NOTE | 2018-05-30 16:31 | RAD REPORT ---
EXAM DESCRIPTION: Edvin Jay And Kevin (2 Views)05/30/2018 4:07 pm CLINICAL HISTORY: Cough COMPARISON: April 2018 FINDINGS: Moderate bilateral pulmonary opacities have worsened since the prior exam The heart is normal size IMPRESSION: Moderate bilateral pneumonia
--- NOTE | 2018-05-30 17:20 | EDPHYS ---
Physician Documentation [facility] Name: Matt Avila Age: 28 yrs Sex: Female : 1990 Arrival Date: 05/30/2018 Time: 14:30 Bed 9 Private MD: None, None ED Physician Kalia Haines HPI: 05/30 17:17 This 28 yrs old Female presents to ER via Ambulatory with complaints of Back kb Pain, Breathing Difficulty. 17:17 The patient has shortness of breath with light activity, while talking. Onset: The kb symptoms/episode began/occurred 2 week(s) ago, and became worse. Duration: The symptoms are continuous. The patient's shortness of breath is aggravated by exertion, light activity, talking, walking. Associated signs and symptoms: Pertinent positives: non-productive cough. Severity of symptoms: At their worst the symptoms were moderate in the emergency department the symptoms are unchanged. The patient has experienced similar episodes in the past. The patient has been recently been admitted at [facility], was discharged last week, for similar complaints. Pt reports she was admitted for pneumonia and flu on 05/17/18 and discharged 4 days ago. States her symptoms have been getting worse since discharge. Increased shortness of breath worse with exertion and talking. 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 - Social history:: Smoking status: Patient uses tobacco products, smokes one pack cigarettes per day. Patient/guardian denies using alcohol, street drugs. - Ebola Screening: : Patient negative for fever greater than or equal to 101.5 degrees Fahrenheit, and additional compatible Ebola Virus Disease symptoms Patient denies exposure to infectious person Patient denies travel to an Ebola-affected area in the 21 days before illness onset No symptoms or risks identified at this time. ROS: 17:14 Eyes: Negative for injury, pain, redness, and discharge, Neck: Negative for injury, kb pain, and swelling, Cardiovascular: Negative for chest pain, palpitations, and edema, Abdomen/GI: Negative for abdominal pain, nausea, vomiting, diarrhea, and constipation, Back: Negative for injury and pain, MS/Extremity: Negative for injury and deformity, Skin: Negative for injury, rash, and discoloration, Neuro: Negative for headache, weakness, numbness, tingling, and seizure. 17:14 Constitutional: Positive for fatigue, malaise, Negative for body aches, chills, fever, poor PO intake, weight loss. 17:14 Respiratory: Positive for cough, dyspnea on exertion, shortness of breath, Negative for hemoptysis, orthopnea, pleurisy. Exam: 17:14 Constitutional: This is a well developed, well nourished patient who is awake, alert, kb and in no acute distress. Head/Face: Normocephalic, atraumatic. ENT: Nares patent. No nasal discharge, no septal abnormalities noted. Tympanic membranes are normal and external auditory canals are clear. Oropharynx with no redness, swelling, or masses, exudates, or evidence of obstruction, uvula midline. Mucous membranes moist. Neck: Trachea midline, no thyromegaly or masses palpated, and no cervical lymphadenopathy. Supple, full range of motion without nuchal rigidity, or vertebral point tenderness. No Meningismus. Chest/axilla: Normal chest wall appearance and motion. Nontender with no deformity. No lesions are appreciated. Cardiovascular: Regular rate and rhythm with a normal S1 and S2. No gallops, murmurs, or rubs. Normal PMI, no JVD. No pulse deficits. Abdomen/GI: Soft, non-tender, with normal bowel sounds. No distension or tympany. No guarding or rebound. No evidence of tenderness throughout. Back: No spinal tenderness. No costovertebral tenderness. Full range of motion. Skin: Warm, dry with normal turgor. Normal color with no rashes, no lesions, and no evidence of cellulitis. MS/ Extremity: Pulses equal, no cyanosis. Neurovascular intact. Full, normal range of motion. Neuro: Awake and alert, GCS 15, oriented to person, place, time, and situation. Cranial nerves II-XII grossly intact. Motor strength 5/5 in all extremities. Sensory grossly intact. Cerebellar exam normal. Normal gait. 17:14 Respiratory: mild respiratory distress is noted, Respirations: labored breathing, that is mild, Breath sounds: decreased breath sounds, that are moderate, are located in both bases. Vital Signs: 14:49 BP 127 / 90; Pulse 95; Resp 16; Temp 98.3; Pulse Ox 99% on R/A; Weight 77.11 kg; Height ch 5 ft. 3 in. (160.02 cm); Pain 8/10; 16:02 BP 129 / 76; Pulse 90; Resp 20; Pulse Ox 99% on R/A; Pain 6/10; ls4 17:20 BP 132 / 88; Pulse 89; Resp 19; Pulse Ox 99% on R/A; ls4 19:00 BP 129 / 88; Pulse 94; Resp 20; Pulse Ox 99% on R/A; ls4 14:49 Body Mass Index 30.11 (77.11 kg, 160.02 cm) ch MDM: 15:04 Patient medically screened. kb 17:16 Data reviewed: vital signs, nurses notes. Data interpreted: Pulse oximetry: on room air kb is 99 %. Interpretation: normal. Counseling: I had a detailed discussion with the patient and/or guardian regarding: the historical points, exam findings, and any diagnostic results supporting the discharge/admit diagnosis, lab results, radiology results, the need for further work-up and treatment in the hospital. Physician consultation: Eva Perry MD was called at 17:17, regarding admission, to the medical/surgical unit. patient's condition, in the emergency department to see patient at 17:17. 05/30 16:50 Order name: CBC with Diff; Complete Time: 17:30 kb 05/30 16:50 Order name: Basic Metabolic Panel kb 05/30 16:50 Order name: Lactate kb 05/30 16:50 Order name: Procalcitonin kb 05/30 16:50 Order name: Blood Culture Adult (2) kb 05/30 17:10 Order name: Flu kb 05/30 15:31 Order name: Chest Pa And Lat (2 Views) XRAY; Complete Time: 16:44 kb 05/30 16:50 Order name: IV Start; Complete Time: 17:14 kb Administered Medications: 17:25 Drug: Cefepime 2 grams Route: IVPB; Rate: 200 ml/hr; Infused Over: 30 mins; Site: right ls4 antecubital; 17:55 Follow up: Response: No adverse reaction; IV Status: Completed infusion ls4 19:34 Follow up: Response: No adverse reaction ls4 17:35 Drug: DuoNeb (3:1) (2.5 mg - 0.5 mg) 3 ml Route: Nebulizer; ls4 17:59 Follow up: Response: No adverse reaction; Marked relief of symptoms ls4 17:58 Drug: vancoMYCIN 1 grams Route: IVPB; Infused Over: 2 hrs; Site: right antecubital; ls4 19:33 Follow up: IV Status: Infusion continued upon admission; IV Intake: 200ml ls4 19:34 Follow up: Response: No adverse reaction ls4 17:59 Drug: NS 0.9% 1000 ml Route: IV; Rate: 1000 ml; Site: right antecubital; ls4 19:34 Follow up: IV Status: Infusion continued upon admission ls4 Disposition: 05/30/18 17:20 Hospitalization ordered by Eva Perry for Inpatient Admission. Preliminary diagnosis is Pneumonia, unspecified organism. - Bed requested for Telemetry/MedSurg (Inpatient). - Status is Inpatient Admission. ls4 - Condition is Stable. - Problem is an ongoing problem. - Symptoms are unchanged. UTI on Admission? No Addendum: 06/05/2018 07:15 Co-signature as Attending Physician, Kalia Haines MD. r n Signatures: Dispatcher [employer] EDMS Corine Whitten, [employer]DE[employer] PRODUCTION FINISHER-Chichi Huggins Christina, Kalia Haynes RN, ch, MD MD rn Stewart, Lisa, RN RN ls4 Corrections: (The following items were deleted from the chart) 05/30 18:39 17:20 Hospitalization Ordered by Eva Perry MD for Inpatient Admission. Preliminary bd diagnosis is Pneumonia, unspecified organism. Bed requested for Telemetry/MedSurg (Inpatient). Status is Inpatient Admission. Condition is Stable. Problem is an ongoing problem. Symptoms are unchanged. UTI on Admission? No. kb 18:55 18:39 05/30/2018 17:20 Hospitalization Ordered by Eva Perry MD for Inpatient ls4 Admission. Preliminary diagnosis is Pneumonia, unspecified organism. Bed requested for Telemetry/MedSurg (Inpatient). Status is Inpatient Admission. Condition is Stable. Problem is an ongoing problem. Symptoms are unchanged. UTI on Admission? No. bd 19:54 18:55 05/30/2018 17:20 Hospitalization Ordered by Eva Perry MD for Inpatient ls4 Admission. Preliminary diagnosis is Pneumonia, unspecified organism. Bed requested for Telemetry/MedSurg (Inpatient). Status is Inpatient Admission. Condition is Stable. Problem is an ongoing problem. Symptoms are unchanged. UTI on Admission? No. ls4
--- NOTE | 2018-05-30 17:20 | ER ---
Nurse's Notes [facility] Name: Matt Avila Age: 28 yrs Sex: Female : 1990 Arrival Date: 05/30/2018 Time: 14:30 Bed 9 Private MD: None, None Diagnosis: Pneumonia, unspecified organism Presentation: 05/30 14:48 Presenting complaint: Patient states: I was dx with pneumonia and with flu, and I feel ch sob and worse. Transition of care: patient was not received from another setting of care. Onset of symptoms was April 2018. Risk Assessment: Do you want to hurt yourself or someone else? Patient reports no desire to harm self or others. Initial Sepsis Screen: Does the patient meet any 2 criteria? No. Patient's initial sepsis screen is negative. Does the patient have a suspected source of infection? No. Patient's initial sepsis screen is negative. Care prior to arrival: None. 14:48 Method Of Arrival: Ambulatory 14:48 Acuity: JACQUELINE 3 Triage Assessment: 14:49 General: Appears in no apparent distress. comfortable, Behavior is calm, cooperative, ch appropriate for age. Pain: Complains of pain in chest and throat Pain currently is 6 out of 10 on a pain scale. Pain: Complains of pain in head and thoracic area. Musculoskeletal: Circulation, motion, and sensation intact. 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 - Social history:: Smoking status: Patient uses tobacco products, smokes one pack cigarettes per day. Patient/guardian denies using alcohol, street drugs. - Ebola Screening: : Patient negative for fever greater than or equal to 101.5 degrees Fahrenheit, and additional compatible Ebola Virus Disease symptoms Patient denies exposure to infectious person Patient denies travel to an Ebola-affected area in the 21 days before illness onset No symptoms or risks identified at this time. Screenin:10 Abuse screen: Denies threats or abuse. Denies injuries from another. Nutritional ls4 screening: No deficits noted. Tuberculosis screening: No symptoms or risk factors identified. Fall Risk None identified. Assessment: 15:22 General: Appears in no apparent distress. Behavior is calm, cooperative. 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 Gait is steady, Speech is normal, Facial symmetry appears normal. Cardiovascular: No deficits noted. Respiratory: Airway is patent Respiratory effort is even, unlabored, Respiratory pattern is regular. Musculoskeletal: No deficits noted. 16:30 Reassessment: No changes from previously documented assessment. Patient and/or family ls4 updated on plan of care and expected duration. Pain level reassessed. Patient is alert, oriented x 3, equal unlabored respirations, skin warm/dry/pink. 17:32 Reassessment: Patient and/or family updated on plan of care and expected duration. Pain ls4 level reassessed. Patient is alert, oriented x 3, equal unlabored respirations, skin warm/dry/pink. Patient states symptoms have improved. 19:37 Reassessment: Patient and/or family updated on plan of care and expected duration. Pain ls4 level reassessed. Patient is alert, oriented x 3, equal unlabored respirations, skin warm/dry/pink. pt resting quietly Patient states symptoms have improved. Vital Signs: 14:49 BP 127 / 90; Pulse 95; Resp 16; Temp 98.3; Pulse Ox 99% on R/A; Weight 77.11 kg; Height 5 ft. 3 in. (160.02 cm); Pain 8/10; 16:02 BP 129 / 76; Pulse 90; Resp 20; Pulse Ox 99% on R/A; Pain 6/10; ls4 17:20 BP 132 / 88; Pulse 89; Resp 19; Pulse Ox 99% on R/A; ls4 19:00 BP 129 / 88; Pulse 94; Resp 20; Pulse Ox 99% on R/A; ls4 14:49 Body Mass Index 30.11 (77.11 kg, 160.02 cm) ED Course: 14:30 Patient arrived in ED. ag5 14:30 None, None is Private Physician. ag5 14:49 Triage completed. 14:49 Arm band placed on left wrist. Patient placed in waiting room. 15:00 Rosie Ocampo RN is Primary Nurse. ls4 15:04 Corine Whitten FNP-C [facility]. kb 15:04 Kalia Haines MD is Attending Physician. kb 15:10 Patient has correct armband on for positive identification. Bed in low position. Call ls4 light in reach. Side rails up X 1. 15:10 No provider procedures requiring assistance completed. ls4 16:07 Chest Pa And Lat (2 Views) XRAY In Process Unspecified. EDMS 17:15 Initial lab(s) drawn, by me, sent to lab. Inserted saline lock:. Inserted saline lock: ls4 20 gauge in right antecubital area, using aseptic technique. Blood collected. 17:19 Eva Perry MD is Hospitalizing Provider. kb 19:54 Patient admitted, IV remains in place. ls4 Administered Medications: 17:25 Drug: Cefepime 2 grams Route: IVPB; Rate: 200 ml/hr; Infused Over: 30 mins; Site: right ls4 antecubital; 17:55 Follow up: Response: No adverse reaction; IV Status: Completed infusion ls4 19:34 Follow up: Response: No adverse reaction ls4 17:35 Drug: DuoNeb (3:1) (2.5 mg - 0.5 mg) 3 ml Route: Nebulizer; ls4 17:59 Follow up: Response: No adverse reaction; Marked relief of symptoms ls4 17:58 Drug: vancoMYCIN 1 grams Route: IVPB; Infused Over: 2 hrs; Site: right antecubital; ls4 19:33 Follow up: IV Status: Infusion continued upon admission; IV Intake: 200ml ls4 19:34 Follow up: Response: No adverse reaction ls4 17:59 Drug: NS 0.9% 1000 ml Route: IV; Rate: 1000 ml; Site: right antecubital; ls4 19:34 Follow up: IV Status: Infusion continued upon admission ls4 Intake: 19:33 IV: 200ml; Total: 200ml. ls4 Outcome: 17:20 Decision to Hospitalize by Provider. kb 19:53 Admitted to Med/surg accompanied by nurse, via wheelchair, room 217, with chart, Report ls4 called to MARK CASTANO 19:53 Condition: stable 19:53 Instructed on the need for admit. 19:54 Patient left the ED. ls4 Signatures: Dispatcher [employer] EDMS Corine Whitten FNP-C FNPAshley Killian RN RN Rosie Guardado RN RN ls4 Trina Low ag5 Corrections: (The following items were deleted from the chart) 17:15 15:10 Patient did not have IV access during this emergency room visit. [email or web address]
[2018-05-30 17:22] LABS: Absolute Lymphocytes (CBC) 2.3 K/uL (0.7-4.9); Absolute Monocytes 0.9 K/uL (0.1-1.3); Basophils % 0.5 % (0-1.3); Hematocrit 39.8 % (36.0-45.0); Lymphocytes % 13.3 % (15.3-44.8)
[2018-05-30] MEDS ORDERED: VANCOMYCIN 1 GM/VIAL ONE (17:32)
[2018-05-30] MEDS ORDERED: NA CHLORIDE 0.9% 100 ML IV ONE (17:32)
[2018-05-30] MEDS ORDERED: NA CHLORIDE 0.9% 250 ML ONE (17:32)
[2018-05-30] MEDS ORDERED: CEFEPIME 2 GM VIAL ONE (17:32)
[2018-05-30 17:34] LABS: BUN Blood Urea Nitrogen 10 mg/dL (7-18); Bicarbonate 29 mmol/L (21-32); Glucose Level 76 mg/dL (74-106); Potassium 3.5 mmol/L (3.5-5.1); Sodium Level 143 mmol/L (136-145)
[2018-05-30] MEDS ORDERED: ALBUTEROL 2.5 MG/3 ML NEB SOL ONE (17:34)
[2018-05-30] MEDS ORDERED: LEVALBUTEROL 1.25 MG/3 ML NEB ONE (17:34)
[2018-05-30] MEDS ORDERED: IPRATROPIUM BROM 0.5MG/2.5ML ONE (17:38)
[2018-05-30] MEDS ORDERED: NA CHLORIDE 0.9% 1,000 ML ONE (18:26)
[2018-05-30] MEDS ORDERED: IPRATROPIUM BROM 0.5MG/2.5ML NEB PRN (19:34)
[2018-05-30] MEDS ORDERED: ACETAMINOPHEN 500 MG TAB PO PRN (19:34)
[2018-05-30] MEDS ORDERED: ALBUTEROL 2.5 MG/3 ML NEB SOL NEB PRN (19:34)
[2018-05-30 20:30] VITALS: BMI 30.1
[2018-05-30] MEDS: HYDROCODONE/APAP 7.5/325 MG TAB PO PRN (20:42)
[2018-05-30] MEDS: ONDANSETRON 4 MG/2 ML VIAL IV PRN (20:43)
[2018-05-30] MEDS: NA CHLORIDE 0.9% 1,000 ML IV SCH (20:43)
[2018-05-30] MEDS ORDERED: VANCOMYCIN 1 GM in NA CHLORIDE 0.9% 500 ML IVPB ONE (21:00)
[2018-05-30] MEDS ORDERED: VANCOMYCIN 1.25 GM in NA CHLORIDE 0.9% 250 ML IVPB SCH (21:00)
[2018-05-31] MEDS: HYDROCODONE/APAP 7.5/325 MG TAB PO PRN ×5 (01:08→23:37)
[2018-05-31] MEDS: ONDANSETRON 4 MG/2 ML VIAL IV PRN ×2 (01:08→06:11)
[2018-05-31] MEDS: NA CHLORIDE 0.9% 1,000 ML IV SCH ×2 (01:09→05:08)
--- NOTE | 2018-05-31 03:52 | HP ---
Date of Admission: 05/30/2018 Chief Complaint: Shortness of breath, cough. Consultants: Dr. Zafar with Pulmonology. History Of Present Illness: The patient is a 28-year-old female with no significant past medical his tory, who was discharged on 05/25/2018 after a prolonged course in the hospital for post influenza pn eumonia. The patient was discharged on Levaquin and prednisone. She had a long course in the ICU an d required BiPAP. The patient is a smoker, however, states that she has not smoked since her previou s hospitalization. The patient's symptoms began to worsen 3 days prior to admission. She had worsen ing shortness of breath, cough, chills. No fever. The patient has returned to work. Otherwise, den ies any further ill contacts. The patient came back into the ER for her symptoms which are worsening , constant, and progressive. In the ER, her workup revealed white count of 17,000 with neutrophilia. Procalcitonin and lactate were negative. She did not appear septic. Chest x-ray showed bilateral pneumonia, worsened since prior exam. The patient was then referred for admission. When seen in the ER, she was awake, alert, oriented x3, in some mild distress. Past Medical History: None. Recent influenza pneumonia and hypoxia. Past Surgical History: None. Allergies: NO KNOWN DRUG ALLERGIES. Medications: The patient is on prednisone and Levaquin. Social History: The patient smokes 1 pack per day, however, has not smoked since her previous hospit alization, had been smoking for 10 years total. No alcohol or illicit drug use. Family History: Cousin has diabetes. Review of Systems: An 11-point system reviewed, negative except as per HPI. Physical Examination: Vital Signs: Blood pressure 127/98, pulse 95, respirations 16, temperature 98.3, O2 99% on room air. General: Awake, alert, oriented x3, somewhat ill-appearing female, obese, BMI 30. HEENT: Normocephalic, atraumatic. PERRLA, EOMI. Moist mucous membranes. Oropharynx is clear. Con junctivae anicteric. Poor dentition. Neck: Supple. No JVD. Trachea midline. CV: S1 and S2. Regular rate and rhythm. Peripheral pulses present. Respiratory: Diminished breath sounds bilaterally. No stridor. No use of accessory muscles. Some rhonchi heard. Gastrointestinal: Abdomen is soft, nontender, nondistended. Positive bowel sounds. No guarding or rigidity. Extremities: No clubbing, cyanosis, or edema. No calf tenderness. Neuro: Cranial nerves 2 through 12 intact grossly. No focal neurological deficit. Speech is normal . Skin: No rashes. Normal skin turgor. Psych: Mood is okay. Affect is full. Insight and judgment are good. Laboratory Data: Sodium 143, potassium 3.5, chloride 109, CO2 29, BUN 10, creatinine 0.63, glucose 7 6, lactate 1.1, calcium 8.5. Procalcitonin less than 0.05. WBC 17.5, H and H 13.1 and 39.8, platele ts 469, neutrophils 80%. Chest x-ray personally reviewed, shows moderate bilateral pneumonia, worse than previous. Assessment And Plan: A 28-year-old female with: 1.Healthcare-associated pneumonia. We will start on broad spectrum IV antibiotics with vancomycin a nd cefepime. Obtain blood cultures and sputum cultures. We will consult Pulmonology. The patient w as recently discharged on 05/25/2018 with post influenza pneumonia. Repeat influenza screen. 2.Neutrophilic leukocytosis, may be related to pneumonia and possibly steroid-induced leukocytosis. 3.Obesity, body mass index 30. 4.Thrombocytosis, likely due to history of smoking. 5.Nicotine dependence, cigarette smoking, currently in remission. Plan: Admit the patient to [facility], place as inpatient. The patient does not appear septic at this time. We will follow up with blood cultures and influenza screen. Pulmonology consultation. /DEYVI Voice ID: [id number]
[2018-05-31] MEDS ORDERED: VANCOMYCIN 1 GM/VIAL ONE (04:55)
[2018-05-31] MEDS ORDERED: CEFEPIME 2 GM/200 ML BAG IV ONE (04:55)
[2018-05-31] MEDS ORDERED: CEFEPIME 2 GM VIAL IV SCH (05:00)
[2018-05-31] MEDS ORDERED: NA CHLORIDE 0.9% 250 ML ONE (05:04)
[2018-05-31] MEDS ORDERED: VANCOMYCIN 1.25 GM in NA CHLORIDE 0.9% 250 ML IVPB SCH (06:00)
[2018-05-31 06:15] LABS: Absolute Lymphocytes (CBC) 2.6 K/uL (0.7-4.9); Absolute Monocytes 0.7 K/uL (0.1-1.3); Absolute Neutrophil 9.4 K/uL (1.8-8.0); Basophils % 0.5 % (0-1.3); Eosinophils % 1.6 % (0-4.4); Hematocrit 33.5 % (36.0-45.0); Lymphocytes % 20.4 % (15.3-44.8); MPV 8.1 fL (7.6-11.3); Monocytes % 5.6 % (3.3-12.3); RBC Red Blood Cell Count 3.92 M/uL (3.86-4.86)
[2018-05-31 06:26] LABS: Urine Appearance CLEAR; Urine Bilirubin NEGATIVE (NEG); Urine Blood NEGATIVE (NEG); Urine Color YELLOW; Urine Glucose NEGATIVE (NEG); Urine Microscopic Reflex NO UMIC; Urine Protein NEGATIVE (NEG); Urine Urobilinogen 0.2 mg/dL (0.2-1.0)
[2018-05-31 06:34] LABS: ALT/SGPT 29 U/L (12-78); AST/SGOT 14 U/L (15-37); Albumin 2.6 g/dL (3.4-5.0); Alkaline Phosphatase 59 U/L (45-117); BUN Blood Urea Nitrogen 13 mg/dL (7-18); Bicarbonate 30 mmol/L (21-32); Bilirubin Total 0.5 mg/dL (0.2-1.0); Glucose Level 92 mg/dL (74-106); Potassium 3.9 mmol/L (3.5-5.1); Protein, Total 5.4 g/dL (6.4-8.2); Sodium Level 145 mmol/L (136-145)
[2018-05-31] MEDS ORDERED: INFLUENZA VACCINE (for 3y+) 0.5 ML DOSE IMVAC ONE (08:00)
[2018-05-31] MEDS ORDERED: POTASSIUM CL SA 10 MEQ TAB PO ONE (09:00)
[2018-05-31] MEDS ORDERED: CEFEPIME/SWI 2gm 2 GM/20 ML SYR IV SCH (09:00)
--- NOTE | 2018-05-31 09:53 | RAD REPORT ---
EXAM DESCRIPTION: CT - Chest Angio - 05/31/2018 9:33 am CLINICAL HISTORY: Chest pain. Rule out pulmonary embolism COMPARISON: Thorax Wo Con dated 05/19/2018; Chest Pa And Lat (2 Views) dated 05/30/2018 TECHNIQUE: CT angiogram of the pulmonary arteries was performed with MIP. All CT scans are performed using dose optimization technique as appropriate and may include automated exposure control or mA/KV adjustment according to patient size. FINDINGS: No evidence of pulmonary thromboembolism. No acute aortic finding demonstrated. Extensive bilateral alveolar lung opacities are present greatest in the upper lobes most compatible w ith pneumonia. No evidence of pneumatocele or intrapulmonary abscess. No significant pericardial or pleural fluid. No concerning bony finding. IMPRESSION: No evidence of pulmonary thromboembolism. Extensive bilateral alveolar lung opacities, greatest in upper lobes, most likely representing pneumo [place].
[2018-05-31] MEDS: predniSONE 20 MG TAB PO SCH ×2 (10:10→20:45)
[2018-05-31] MEDS: ENOXAPARIN 40 MG/0.4 ML SQ SCH (10:10)
--- NOTE | 2018-05-31 12:36 | P.PN ---
Subjective Date of Service: 05/31/18 Chief Complaint: Shortness of breath Patient is 28 years of age was recently discharged with ARDS states that her shortness of breath became acutely worse start developing headache ended up here in the hospital complaining of a chronic cough she still on steroids chemistries unremarkable white count is mildly L Review of Systems General: Weakness Respiratory: Cough, Shortness of Breath Physical Examination - Vital Signs Temperature: 97.7 F Blood Pressure: 134/75 Pulse: 79 Respirations: 14 Pulse Ox (%): 95 - Physical Exam General: Alert, Oriented x3 HEENT: Atraumatic Neck: Supple Respiratory: Crackles/rales (Crackles bilaterally) Cardiovascular: No edema, Regular rate/rhythm - Studies Laboratory Data (last 24 hrs) 05/30/18 17:07: Sodium 143, Potassium 3.5, BUN 10, Creatinine 0.63, Glucose 76 05/30/18 17:07: WBC 17.5 H D, Hgb 13.1, Hct 39.8, Plt Count 469 H D Assessment & Plan - Problems (Diagnosis) (1) ARDS (adult respiratory distress syndrome) Current Visit: Yes Status: Acute Plan: Patient is 28 years of age was recently admitted with ARDS sent home on steroids him back again worsening shortness of breath CT scan does not show any evidence of pulmonary embolism she is extensive changes bilaterally pro calcitonin level is negative HIV screen negative discuss with the patient regarding bronchoscopy possible biopsy Dc IV fluids maintain patient on negative fluid balance of start on low-dose spironolactone Dc IV antibiotics 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
[2018-05-31] MEDS: levoFLOXacin 500 MG TAB PO SCH (13:24)
[2018-05-31] MEDS: SPIRONOLACTONE 25 MG TABLET PO SCH (13:24)
[2018-05-31 13:27] LABS: Protime INR 0.88
[2018-05-31] MEDS: NA CHLORIDE 0.9% 0 ML ONE ×2 (15:20→15:23)
--- NOTE | 2018-05-31 17:29 | PN ---
Date of Progress Note: 05/31/2018 Subjective: Patient is seen and examined. Chart reviewed and case discussed with RN and Dr. Steve vela. The patient states her shortness of breath has improved, still having some cough. Medication was reviewed. Physical Examination: Vital Signs: Temperature 97.7, heart rate 79, blood pressure 134/75, respirations 14, O2 95% on room air. General: Awake, alert, oriented x3. No acute distress. Mildly ill-appearing female, obese, BMI 30. CV: S1, S2. Regular rate and rhythm. Peripheral pulses present. Respiratory: Diminished breath sounds. Some rhonchi present. No wheezing or stridor. Gastrointestinal: Abdomen is soft, nontender, nondistended. Positive bowel sounds. Extremities: No clubbing, cyanosis, or edema. Neurologic: Nonfocal. Laboratory Data: Sodium 145, potassium 3.9, chloride 110, CO2 30, BUN 13, creatinine 0.72, glucose 9 2, calcium 7.8, magnesium 2. WBC 13, H and H 11.2 and 33.5, platelets 407, neutrophils 71%. Blood c ultures pending. Influenza screen is negative. CT angio chest personally reviewed, shows no evidenc e of pulmonary embolism, extensive bilateral alveolar lung opacities, greatest in upper lobes, most l ikely representing pneumonia. Assessment And Plan: 1.A 28-year-old female with bilateral upper lobe pneumonia, likely healthcare associated. The patie nt has been switched over to p.o. Levaquin. Follow up on cultures. Appreciate Dr. Zafar's input. The patient may require bronchoscopy. 2.Obesity, BMI 30. 3.Thrombocytosis, improving, likely secondary to cigarette smoking. 4.Nicotine dependence with cigarette smoking, currently in remission. 5.Neutrophilic leukocytosis, trending down. 6.Hypercalcemia. 7.Moderate protein-calorie malnutrition. Albumin 2.6. Plan: Continue steroids and switched to oral antibiotics. Possible bronchoscopy in a.m. SA/MODL Voice ID: [id number] Report ID: [id number]
[2018-06-01] MEDS ORDERED: LIDOCAINE 4% TOP SOLUTION TOP ONE (02:47)
[2018-06-01 06:57] LABS: Absolute Lymphocytes (CBC) 1.4 K/uL (0.7-4.9); Absolute Monocytes 0.6 K/uL (0.1-1.3); Absolute Neutrophil 18.6 K/uL (1.8-8.0); Basophils % 0.2 % (0-1.3); Hematocrit 39.1 % (36.0-45.0); Lymphocytes % 6.8 % (15.3-44.8); MPV 8.4 fL (7.6-11.3); Monocytes % 2.7 % (3.3-12.3); RBC Red Blood Cell Count 4.57 M/uL (3.86-4.86)
[2018-06-01 07:11] LABS: ALT/SGPT 37 U/L (12-78); AST/SGOT 17 U/L (15-37); Albumin 3.1 g/dL (3.4-5.0); Alkaline Phosphatase 74 U/L (45-117); BUN Blood Urea Nitrogen 13 mg/dL (7-18); Bicarbonate 27 mmol/L (21-32); Bilirubin Total 0.5 mg/dL (0.2-1.0); Glucose Level 121 mg/dL (74-106); Potassium 4.6 mmol/L (3.5-5.1); Protein, Total 6.8 g/dL (6.4-8.2); Sodium Level 141 mmol/L (136-145)
[2018-06-01] MEDS: levoFLOXacin 500 MG TAB PO SCH (08:25)
[2018-06-01] MEDS: SPIRONOLACTONE 25 MG TABLET PO SCH (08:25)
[2018-06-01] MEDS: ENOXAPARIN 40 MG/0.4 ML SQ SCH (08:25)
[2018-06-01] MEDS: predniSONE 20 MG TAB PO SCH ×2 (08:25→20:41)
[2018-06-01 09:02] LABS: Blood Morphology Comment NOT SEEN (NOT SEEN); Platelet Estimate ADEQ
[2018-06-01] MEDS ORDERED: MORPHINE 2 MG/ML SYR IV PRN (09:11)
[2018-06-01] MEDS ORDERED: Phenylephrine HCl 10 MG/ML 1 ML VIAL ONE (11:59)
[2018-06-01] MEDS ORDERED: LIDOCAINE VISCOUS 2% SOLN 15 ML UDC ONE (11:59)
[2018-06-01] MEDS ORDERED: LIDOCAINE 1% MPF 30 ML VIAL ONE (12:03)
[2018-06-01] MEDS ORDERED: GLYCOPYRROLATE 0.2 MG/ML SYR ONE (12:29)
[2018-06-01] MEDS ORDERED: Ringers Lactate 1,000 ML IV ONE (12:31)
[2018-06-01] MEDS ORDERED: FENTANYL CITR 100 MCG/2 ML ONE (13:10)
[2018-06-01] MEDS ORDERED: LIDOCAINE 1% MPF 5 ML VIAL ONE (13:10)
[2018-06-01] MEDS ORDERED: PROPOFOL 200 MG/20 ML VIAL IV ONE (13:10)
--- NOTE | 2018-06-01 13:42 | P.OP ---
Date of Service: 06/01/18 (Bronchoscopy with left lingular and upper lobe BAL) Findings and Operative Technique Patient is 28 years of age with 2nd admission for shortness of breath she had initially admitted with ARDS improved was discharged came back again and CT scan shows bilateral infiltrates HIV screen negative bronchoscopy was done to rule out any obvious infection Narrative report after obtaining informed consent from the patient she was premedicated by anesthesia finding normal vocal cords normal trachea normal right and left-sided bronchial anatomy no evidence of infection upper and throughout the respiratory tract low perfectly normal BAL was performed as indicated above and the fluid was cloudy
[2018-06-01] MEDS ORDERED: ALBUTEROL 2.5 MG/3 ML NEB SOL ONE (14:14)
[2018-06-01] MEDS: HYDROCODONE/APAP 7.5/325 MG TAB PO PRN (14:41)
--- NOTE | 2018-06-01 18:12 | PN ---
Date of Progress Note: 06/01/2018 Subjective: The patient was seen and examined, chart reviewed and case discussed with RN. The patie nt going for bronchoscopy today. States that she is still having cough and has pain in her abdomen a nd across her back. Shortness of breath has improved, not requiring any supplemental oxygenation. Medications: List reviewed. Objective: Vital Signs: Temperature 97.6, heart rate 82, blood pressure 120/84, respirations 16, O2 95% on room air. General: Awake, alert, oriented x3. Ill-appearing female, obese. BMI 30.1. CV: S1, S2. Regular rate and rhythm. Peripheral pulses present. Respiratory: Diminished breath sounds. Some rhonchi heard. Overall improving. No stridor. No use of accessory muscles. Gastrointestinal: Abdomen is soft, nontender, nondistended. Positive bowel sounds. No guarding or rigidity. Extremities: No clubbing, cyanosis, or edema. No calf tenderness. Neurologic: Cranial nerves 2 through 12 intact grossly. No focal neurological deficit. Speech is n ormal. Laboratory Data: Sodium 141, potassium 4.6, chloride 106, CO2 27, BUN 13, creatinine 0.67, glucose 1 21, calcium 8.7, albumin 3.1. WBC 20.6, H and H 12.7, 39.1, platelets 440, neutrophils 90%. Blood c ultures, no growth to date. CT angio chest negative for PE, shows extensive bilateral alveolar lung opacities, greater in the upper lobes, representing pneumonia. Assessment: A 28-year-old female with: 1.Healthcare-associated pneumonia, bilateral upper lobes. The patient was switched over to p.o. Lev aquin. Cultures are negative to date. This is her second hospitalization following the influenza. The patient going for bronchoscopy. We will follow up with sputum cultures and cytology. 2.Obesity. Body mass index 30. 3.Nicotine dependence with cigarette smoking, Counseled. Currently in remission. 4.Thrombocytosis. 5.Neutrophilic leukocytosis, may be secondary to steroid-induced leukocytosis or secondary to pneumo geneva. We will continue to monitor. The patient is afebrile at this time. 6.Deep venous thrombosis prophylaxis with sequential compression devices. No chemical anticoagulati on due to procedure. Plan: Continue diuresis with Aldactone. Continue oral steroids. Adjust pain medications. We will switch to IV analgesia. Follow up on bronchoscopy results, cultures and cytology. /DEYVI Voice ID: [id number] Report ID: [id number]
[2018-06-01] MEDS ORDERED: DULERA 100/5 (MOMETASONE/FORMOTEROL) INHALER IH SCH (21:00)
[2018-06-01 21:58] VITALS: O2SAT 98
[2018-06-01 22:18] VITALS: BP 116/76; TEMP 97.4
--- NOTE | 2018-06-03 03:59 | DS ---
Date of Discharge: 06/01/2018 Information Technology Administrator: Dr. Zafar with Pulmonology. Procedures: On 06/01/2018, bronchoscopy; normal bronchial anatomy, no evidence of infection in the u pper and throughout respiratory tract, normal bronchoalveolar lavage performed. The fluid was cloudy . Normal vocal cords and normal trachea. Admitting Diagnoses: 1.Healthcare-associated pneumonia. 2.Neutrophilic leukocytosis. 3.Obesity, BMI 30. 4.Thrombocytosis. 5.Nicotine dependence with cigarette smoking, in remission. Discharge Diagnoses: 1.Healthcare-associated pneumonia, bilateral upper lobes. 2.Obesity, BMI 30. 3.Nicotine dependence with cigarette smoking, currently in remission. 4.Thrombocytosis. 5.Neutrophilic leukocytosis, may be due to steroid-induced leukocytosis. Hospital Course: The patient is a 28-year-old female with no significant past medical history, who i s readmitted after a prolonged course in the hospital recently for post-influenza pneumonia. She was discharged on 05/25/2018. The patient came back again with worsening chest x-ray, shortness of gold th, elevated white count of 17,000, and neutrophilia. The patient has been on steroids. She did not appear septic. The patient was started on supplemental oxygen via nasal cannula. She was started o n broad-spectrum IV antibiotics and cultures were obtained. Her cultures remained negative. Her inf luenza screen was also negative. The patient was seen by technical laboratory asst, Dr. Zafar. She was resta rted on her steroids. She did have significant improvement of her symptoms. However, bronchoscopy w as indicated due to recurrent symptoms of pneumonia and shortness of breath. This was her third visi t to the hospital since her first flu diagnosis. The patient did have elevated white count, which wa s likely secondary to steroids. She does not appear septic. Her procalcitonin was negative. Her la ctate was also normal. Cultures did not show any growth. She was afebrile. The patient was able to be weaned off oxygen. CT angio of the chest was done and pulmonary embolism was ruled out. Broncho scopy was normal. The patient did have bronchoalveolar lavage and the patient was then cleared by lmonology for discharge. The patient was doing well. She was able to ambulate without shortness of breath. She was then sent home on a prednisone taper as well as Dulera. She will need to follow up with her technical laboratory asst, Dr. Zafar in 1 week for results of the bronchoalveolar lavage and other cu ltures. Diet: Calorie-restricted diet. Activity: As tolerated. No strenuous activity. Condition: Good. Physical Examination: For physical exam findings, please see the progress note dictated on day of discharge. Total time spent discharging the patient was 37 minutes. DONALD Voice ID: [id number] Report ID: [id number]
== END 2018-06-01 21:00 | disposition home or self-care (01) | DRG 193 ==
LOC: ER 14:28 → ERHOLD 17:43 → 2ND 19:37
PROVIDERS: ADMIT Family Medicine; ATTEND Family Medicine
PROC: 0B9G7ZX Drainage of Left Upper Lung Lobe, Via Natural or Artificial Opening, Diagnostic (ICD-10-PCS; 2018-06-01)
PROC: 0B9H7ZX Drainage of Lung Lingula, Via Natural or Artificial Opening, Diagnostic (ICD-10-PCS; principal; 2018-06-01 13:15)
DX: J18.1 Lobar pneumonia, unspecified organism (principal); J80 Acute respiratory distress syndrome; E44.0 Moderate protein-calorie malnutrition; F17.210 Nicotine dependence, cigarettes, uncomplicated; Y95 Nosocomial condition; E66.9 Obesity, unspecified; Z68.30 Body mass index [BMI] 30.0-30.9, adult; D47.3 Essential (hemorrhagic) thrombocythemia; D72.828 Other elevated white blood cell count; E83.52 Hypercalcemia
CPT/HCPCS: 36415; 71046; 71275; 80048; 80053; 81003; 83605; 83735; 84145; 84703; 85025; 85610; 87015; 87040; 87116; 87206; 87804; 88108; 88305; 88312; 94640; 94760; 96365; 96367; 99285; J0692; J1650; J2270; J2370; J2405; J2704; J3010; J7030; J7512; Q9967

== ENCOUNTER 2018-08-21 16:34 | Emergency (ER) | payer SELFPAY ==
--- OUTSIDE RECORDS SUMMARY | 2018-08-21 16:36 | XMS REPORT ---
:1990 [facility] Address [address] [place] [address] Care Team Providers Name Role Phone Unavailable Unavailable Unavailable Problems This patient has no known problems. Allergies, Adverse Reactions, Alerts This patient has no known allergies or adverse reactions. Medications This patient has no known medications.
[2018-08-21] MEDS ORDERED: HYDROCODONE/APAP 7.5/325 MG TAB ONE (17:44)
[2018-08-21] MEDS ORDERED: IBUPROFEN 400 MG TAB ONE (17:44)
--- NOTE | 2018-08-21 18:13 | RAD REPORT ---
EXAM DESCRIPTION: RAD - Knee Left 3 View - 08/21/2018 5:39 pm CLINICAL HISTORY: Trip and fall, knee pain COMPARISON: None. FINDINGS: No fracture, dislocation or periosteal reaction.Small joint effusion present. No joint spa ce narrowing. No soft tissue abnormality. IMPRESSION: Small joint effusion. No acute bone finding. Clinical concerns for internal derangement or occult bony injury could be further assessed with MR im aging.
--- NOTE | 2018-08-21 18:31 | EDPHYS ---
Physician Documentation [facility] Name: Matt Avila Age: 28 yrs Sex: Female : 1990 Arrival Date: 08/21/2018 Time: 16:36 Bed 6 Private MD: None, None ED Physician Pito Elizabeth HPI: 08/21 17:24 This 28 yrs old Female presents to ER via Wheelchair with complaints of Leg cp Pain, Knee Pain, Fall Injury. 17:24 The patient presents with decreased range of motion, an injury, swelling, tenderness. cp The complaints affect the lateral aspect of left knee, medial aspect of left knee and left knee. Context: resulted from the patient falling, down stairs, the patient is not able to bear weight, must have assistance, Problem is a result from a previous injury: No. Onset: The symptoms/episode began/occurred 2 hour(s) ago. Modifying factors: the symptoms are aggravated by movement. Associated signs and symptoms: Pertinent negatives rash, warmth. Treatment prior to arrival includes: no previous treatment. 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 - Social history:: Smoking status: Patient uses tobacco products, smokes one pack cigarettes per day. - Ebola Screening: : No symptoms or risks identified at this time. ROS: 17:25 Eyes: Negative for injury, pain, redness, and discharge. cp 17:25 Constitutional: Negative for body aches, chills, fever, poor PO intake. 17:25 Cardiovascular: Negative for chest pain. 17:25 Respiratory: Negative for cough, shortness of breath, wheezing. 17:25 Abdomen/GI: Negative for abdominal pain. 17:25 MS/extremity: Positive for decreased range of motion, pain, swelling, tenderness, of the left knee, Negative for deformity. 17:25 All other systems are negative. Exam: 18:26 Head/Face: Normocephalic, atraumatic. cp 18:26 Constitutional: The patient appears in no acute distress, alert, awake, well developed, well nourished, uncomfortable. 18:26 Neck: C-spine: vertebral tenderness, is not appreciated, crepitus, is not appreciated, ROM/movement: is normal, is supple, without pain, no range of motions limitations, no nuchal rigidity. 18:26 Chest/axilla: Inspection: normal. 18:26 Cardiovascular: Rate: normal, Rhythm: regular. 18:26 Respiratory: the patient does not display signs of respiratory distress, Respirations: normal, no use of accessory muscles, no retractions, no splinting, no tachypnea. 18:26 Abdomen/GI: Inspection: abdomen appears normal. 18:26 Back: pain, is absent, ROM is normal. 18:26 Musculoskeletal/extremity: Perfusion: the extremity is normally perfused throughout, Sensation intact. Joints: All joints are normal except the left knee displays painful range of motion, swelling, tenderness. 18:26 Neuro: Orientation: to person, place \T\ time. Mentation: is normal, Motor: moves all fours, strength is normal. Vital Signs: 16:46 BP 123 / 78; Pulse 110; Resp 20; Temp 98.8; Pulse Ox 99% ; Weight 81.65 kg; Height 5 sv ft. 4 in. (162.56 cm); Pain 10/10; 18:00 BP 126 / 76; Pulse 88; Resp 16; Pulse Ox 100% on R/A; hb 19:10 BP 121 / 70; Pulse 85; Resp 17; Temp 98.5; Pulse Ox 99% ; rr5 16:46 Body Mass Index 30.90 (81.65 kg, 162.56 cm) sv Procedures: 19:15 Splinting: Splint applied to left knee using knee immobilizer, applied by nurse. cp Examined by me, post splint application: neurovascular intact, Patient tolerated well. Crutch training provided to patient and/or family. Return demonstration given. MDM: 17:18 Patient medically screened. cp 18:28 Data reviewed: vital signs, nurses notes, radiologic studies, plain films, and as a cp result, I will discharge patient. 18:28 Differential diagnosis: closed fracture, contusion, ligament injury. Test cp interpretation: by ED physician or midlevel provider: plain radiologic studies. Counseling: I had a detailed discussion with the patient and/or guardian regarding: the historical points, exam findings, and any diagnostic results supporting the discharge/admit diagnosis, radiology results, the need for outpatient follow up, a orthopedic surgeon, to return to the emergency department if symptoms worsen or persist or if there are any questions or concerns that arise at home. Response to treatment: the patient's symptoms have markedly improved after treatment, and as a result, I will discharge patient. 08/21 16:47 Order name: Knee Left 3 View XRAY; Complete Time: 18:21 sv 08/21 18:25 Order name: Crutches; Complete Time: 19:02 cp 08/21 18:25 Order name: Knee Immobilizer; Complete Time: 19:02 cp Administered Medications: 17:34 Drug: Ibuprofen 800 mg Route: PO; bp 18:21 Follow up: Response: No adverse reaction; Pain is decreased hb 17:34 Drug: Hydrocodone-Acetaminophen (7.5 mg-325 mg) 1 tabs Route: PO; bp 18:20 Follow up: Response: No adverse reaction; Pain is decreased hb Disposition: 08/22 08:31 Co-signature as Attending Physician, Pito Elizabeth MD I agree with the assessment and [facility] plan of care. Disposition: 08/21/18 18:29 Discharged to Home. Impression: Pain in left knee, Fall (on) (from) other stairs and steps. - Condition is Stable. - Discharge Instructions: Elastic Bandage and RICE, Knee Immobilizer, Knee Pain. - Prescriptions for Ibuprofen 800 mg Oral Tablet - take 1 tablet by ORAL route every 8 hours As needed take with food; 30 tablet. - Medication Reconciliation Form, Thank You Letter, Antibiotic Education, Prescription Opioid Use form. - Follow up: Les Mckeon MD; When: 2 - 3 days; Reason: Recheck today's complaints. - Problem is new. - Symptoms have improved. Signatures: Dispatcher [employer] Eleonora Leyva RN RN sv Anderson, Corey, MD MD cha Page, Corey, PA PA cp Peltier, Brian, RN RN bp Giancarlo Mei RN RN rr5 Yasemin Aiken RN Corrections: (The following items were deleted from the chart) 08/21 19:25 18:29 08/21/2018 18:29 Discharged to Home. Impression: Pain in left knee; Fall (on) rr5 (from) other stairs and steps. Condition is Stable. Forms are Medication Reconciliation Form, Thank You Letter, Antibiotic Education, Prescription Opioid Use. Follow up: Les Mckeon; When: 2 - 3 days; Reason: Recheck today's complaints. Problem is new. Symptoms have improved. cp
--- NOTE | 2018-08-21 18:31 | ER ---
Nurse's Notes [facility] Name: Matt Avila Age: 28 yrs Sex: Female : 1990 Arrival Date: 08/21/2018 Time: 16:36 Bed 6 Private MD: None, None Diagnosis: Pain in left knee;Fall (on) (from) other stairs and steps Presentation: 08/21 16:45 Presenting complaint: Patient states: left knee pain happened today after tripping and sv falling. [place] her knee go backwards. Care prior to arrival: None. Mechanism of Injury: Fall from standing position. 16:45 Acuity: JACQUELINE 4 sv 16:45 Method Of Arrival: Wheelchair sv 16:46 Transition of care: patient was not received from another setting of care. Onset of sv symptoms was August 21, 2018. Initial Sepsis Screen: Does the patient meet any 2 criteria? No. Patient's initial sepsis screen is negative. Does the patient have a suspected source of infection? No. Patient's initial sepsis screen is negative. 17:30 Risk Assessment: Do you want to hurt yourself or someone else? Patient reports no hb desire to harm self or others. Triage Assessment: 16:45 General: Appears in no apparent distress. uncomfortable, well developed, Behavior is sv calm, cooperative, appropriate for age. Pain: Complains of pain in left knee Pain currently is 10 out of 10 on a pain scale. Pain began 1 hour ago. Is intermittent, episodic, Aggravated by increased activity, weight bearing. Neuro: Level of Consciousness is awake, alert, obeys commands, Oriented to person, place, time, situation. Respiratory: Respiratory effort is even, unlabored, Respiratory pattern is regular, symmetrical. 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 - Social history:: Smoking status: Patient uses tobacco products, smokes one pack cigarettes per day. - Ebola Screening: : No symptoms or risks identified at this time. Screenin:30 Abuse screen: Denies threats or abuse. Denies injuries from another. Nutritional hb screening: No deficits noted. Tuberculosis screening: No symptoms or risk factors identified. Fall Risk None identified. Assessment: 17:30 General: Appears in no apparent distress. Behavior is calm, cooperative. Pain: Pain hb currently is 7 out of 10 on a pain scale. Neuro: Level of Consciousness is awake, alert, obeys commands, Oriented to person, place, time, situation. Cardiovascular: Capillary refill < 3 seconds Patient's skin is warm and dry. Respiratory: Airway is patent Respiratory effort is even, unlabored, Respiratory pattern is regular, symmetrical. GI: No signs and/or symptoms were reported involving the gastrointestinal system. : No signs and/or symptoms were reported regarding the genitourinary system. EENT: No signs and/or symptoms were reported regarding the EENT system. Derm: Skin is intact, is healthy with good turgor. Musculoskeletal: Reports left knee pain. 18:30 Reassessment: Patient appears in no apparent distress at this time. Patient and/or hb family updated on plan of care and expected duration. Pain level reassessed. Patient is alert, oriented x 3, equal unlabored respirations, skin warm/dry/pink. 19:11 Reassessment: Patient appears in no apparent distress at this time. Patient is alert, rr5 oriented x 3, equal unlabored respirations, skin warm/dry/pink. received GCS 15/15 AOx4 breathing spontaneously at room air. with left knee immobilizer. for discharge awaiting for her transport. Vital Signs: 16:46 BP 123 / 78; Pulse 110; Resp 20; Temp 98.8; Pulse Ox 99% ; Weight 81.65 kg; Height 5 sv ft. 4 in. (162.56 cm); Pain 10/10; 18:00 BP 126 / 76; Pulse 88; Resp 16; Pulse Ox 100% on R/A; hb 19:10 BP 121 / 70; Pulse 85; Resp 17; Temp 98.5; Pulse Ox 99% ; rr5 16:46 Body Mass Index 30.90 (81.65 kg, 162.56 cm) sv ED Course: 16:36 Patient arrived in ED. ag5 16:36 None, None is Private Physician. ag5 16:46 Triage completed. sv 16:46 Arm band placed on. sv 17:18 Pito Chavez PA is [facility]. cp 17:18 Pito Elizabeth MD is Attending Physician. cp 17:22 Yasemin Aiken, RN is Primary Nurse. hb 17:30 Patient has correct armband on for positive identification. Bed in low position. Call hb light in reach. Side rails up X 1. 17:32 X-ray completed. Portable x-ray completed in exam room. Patient tolerated procedure tm4 well. 17:35 Knee Left 3 View XRAY In Process Unspecified. EDMS 18:29 Les Mckeon MD is Referral Physician. cp 19:02 No provider procedures requiring assistance completed. Patient did not have IV access hb during this emergency room visit. Administered Medications: 17:34 Drug: Ibuprofen 800 mg Route: PO; bp 18:21 Follow up: Response: No adverse reaction; Pain is decreased hb 17:34 Drug: Hydrocodone-Acetaminophen (7.5 mg-325 mg) 1 tabs Route: PO; bp 18:20 Follow up: Response: No adverse reaction; Pain is decreased hb Outcome: 18:29 Discharge ordered by MD. cp 19:02 Discharged to home ambulatory, with significant other. hb 19:02 Condition: stable 19:02 Discharge instructions given to patient, Instructed on discharge instructions, follow up and referral plans. medication usage, Demonstrated understanding of instructions, follow-up care, medications, Prescriptions given X 1. 19:25 Patient left the ED. rr5 Signatures: Dispatcher [employer] Eleonora Leyva RN RN Briseida Bess tm4 Pito Chavez PA PA cp Yasemin Aiken RN RN Dimas Davies RN RN bp Giancarlo Mei RN RN rr5 Trina Low ag5 Corrections: (The following items were deleted from the chart) 19:17 19:11 Reassessment: Patient appears in no apparent distress at this time. Patient is rr5 alert, oriented x 3, equal unlabored respirations, skin warm/dry/pink. received GCS 15/15 AOx4 breathing spontaneously at room air. with left foot immobilizer. for discharge awaiting for her transport. rr5
[2018-08-21 20:06] VITALS: BP 121/70; TEMP 98.5; O2SAT 99
== END 2018-08-21 19:25 | disposition home or self-care (01) ==
LOC: ER 16:34
DX: M25.562 Pain in left knee (principal); W10.9XXA Fall (on) (from) unspecified stairs and steps, initial encounter; Y93.9 Activity, unspecified; Y92.9 Unspecified place or not applicable
CPT/HCPCS: 99283

== ENCOUNTER 2019-08-01 10:22 | Emergency (ER) | payer SELFPAY ==
--- OUTSIDE RECORDS SUMMARY | 2019-08-01 10:26 | XMS REPORT | Summary of Care ---
:1990 Author Organization [facility] Address [address] [place] [id number] Care Team Providers Name Role Phone Pcp, Patient Does Not Have A Primary Care Provider +[id number] 0-0000 Reason for Visit Reason Comments Lab Results Encounter Details Date Type Department Care Team Description 11/14/[address] [facility] Isabelle Hubbard FNP Lab Results [address] [facility] [address] [place] [address] [place] [id number] Allergies Active Allergy Reactions Severity Noted Date Comments Codeine Other - See comments 11/09/2018 Moises dougherty documented as of this encounter (statuses as of 11/15/2018) Medications No known medicationsdocumented as of this encounter (statuses as of 11/15/2018) Active Problems No known active problemsdocumented as of this encounter (statuses as of 11/15/2018) Immunizations Name Administration Dates Next Due HPV 05/06/2008 documented as of this encounter Social History Tobacco Use Types Packs/Day Years Used Date Current Every Day Smoker Cigarettes 1 8 Smokeless Tobacco: Never Used Comments: will discuss quitting at rustur e date Alcohol Use Drinks/Week oz/Week Comments Yes 1-2 times/ year Alcohol Habits Answer Date Recorded How often do you have a drink containing alcohol? Monthly or less 11/09/2018 How many drinks containing alcohol do you have on a Not aske d typical day when you are drinking? How often do you have six or more drinks on one Less than mo nthly 11/09/2018 occasion? Sex Assigned at Date Recorded Not on file Job Start Date Occupation Industry Not on file Not on file Not on file Travel History Travel Start Travel End No recent travel history available. documented as of this encounter Last Filed Vital Signs Not on filedocumented in this encounter Plan of Treatment Health Maintenance Due Date Last Done Comments PNEUMOCOCCAL 0-64 YEARS COMBINED SERIES (1 of 1 - 1998 PPSV23) VARICELLA VACCINES (1 of 2 - 13+ 2-dose series) 2005 HPV VACCINES (2 - Female 3-dose series) 06/03/2008 05/06/19 09 DTaP,Tdap,and Td Vaccines (1 - Tdap) 2011 PAP SMEAR 2013 05/06/2008 INFLUENZA VACCINE (#1) 2018 documented as of this encounter Results Not on filedocumented in this encounter Insurance Payer Benefit Plan / Subscriber ID Effective Phone Address T e Group Dates GIULIANO NOBLES [id number] 2018-Lucrecia [phone] [facility] [address] [place] [address] documented as of this encounter
--- OUTSIDE RECORDS SUMMARY | 2019-08-01 10:26 | XMS REPORT ---
:1990 Author Organization [facility] Address [address] [place] [address] Care Team Providers Name Role Phone Unavailable Unavailable Unavailable Problems This patient has no known problems. Allergies, Adverse Reactions, Alerts This patient has no known allergies or adverse reactions. Medications This patient has no known medications.
--- OUTSIDE RECORDS SUMMARY | 2019-08-01 10:26 | XMS REPORT | Summary of Care ---
:1990 Author Organization [facility] Address [address] [place] [address] Care Team Providers Name Role Phone Pcp, Patient Does Not Have A Primary Care Provider +1-000-00 0-0000 Reason for Referral (Routine) Status Reason Specialty Diagnoses / Referred By Referred To Procedures Contact Contact New Request Orthopedic Surgery Diagnoses Acute internal derangement of right knee Isabelle Ewing, Procedures CONSULT/REFERRAL ORTHOPAEDIC SURGERY [address] [address] Reason for Visit Reason Comments Establish Care Referral/consult Encounter Details Date Type Department Care Team Description 11/09/2018 Office Visit [facility] Isabelle Ewing, AMERICAN INDIAN STUDIES PROFESSOR [address] [place] [address] Acute internal derangement of right knee (Primary Dx); [facility] Primary History of ARDS; Clinic Tobacco dependence [address] [place] [address] Allergies Active Allergy Reactions Severity Noted Date Comments Codeine Other - See comments 11/09/2018 Brettin jorden and ravindra documented as of this encounter (statuses as of 11/09/2018) Medications No known medicationsdocumented as of this encounter (statuses as of 11/09/2018) Active Problems No known active problemsdocumented as of this encounter (statuses as of 11/09/2018) Immunizations Name Administration Dates Next Due HPV 05/06/2008 documented as of this encounter Social History Tobacco Use Types Packs/Day Years Used Date Current Every Day Smoker Cigarettes 1 8 Smokeless Tobacco: Never Used Tobacco Cessation: Ready to Quit: No; Co unseling Given: Yes Comments: will discuss quitting at futur e date Alcohol Use Drinks/Week oz/Week Comments [...] of this encounter Last Filed Vital Signs Vital Sign Reading Time Taken Comments Blood Pressure 96/56 11/09/2018 9:53 AM CDT Pulse 97 11/09/2018 9:53 AM CDT Temperature 36.8 C (98.2 F) 11/09/2018 9:53 AM CDT Respiratory Rate 20 11/09/2018 9:53 AM CDT Oxygen Saturation - - Inhaled Oxygen Concentration - - Weight 85.6 kg (188 lb 12.8 oz) 11/09/2018 9:53 AM CDT Height 160 cm (5' 3") 11/09/2018 9:53 AM CDT Body Mass Index 33.44 11/09/2018 9:53 AM CDT documented in this encounter Progress Notes Isabelle Ewing, AMERICAN INDIAN STUDIES PROFESSOR - 11/09/2018 10:30 AM CDT Cc: Chief Complaint Patient presents with Establish Care Referral/consult HPI Matt Avila is a 28 year old female in clinic today to establish care with the [facility] Indigent program. Pt fell on August 21 this year, twisting her right knee. Went to [facility] in [place] where she was told she has ACL/PLC /MCI injury and would need surgical reconstruction. Pt in clinic with bárbara and knee immobilizer in place. States the knee is laterally unstable without immobilizer. Able to bear weight without issue. She is seeking Ortho referral to have her left knee evaluated. Pt has significant PMH of Vial pneumonia with ARDS earlier this year requiring ICU stay and multipleadmissions. States she has now recovered and not longer complaining of SOB with or without activity. Pt is still smoking 1ppd. Takes no medications No other health issues No Past surgical history No pregnancies Medications No outpatient medications prior to visit. No facility-administered medications prior to visit. Review of Systems Constitutional: negative Eyes: negative Ears: negative Nose/Sinuses: negative Mouth/Throat: negative Cardiovascular: negative Respiratory: negative Gastrointestinal: negative Genitourinary: negative Musculoskeletal: See HPI Neuro: negative Psych: negative Endocrine: negative Vital Signs Resp 20 | Ht 5' 3" (1.6 m) | Wt 188 lb 12.8 oz (85.6 kg) | BMI 33.44 kg/m Physical Exam Appearance: patient alert and in no acute distress Ear: normal TM's bilaterally, normal auditory canals and external ears non-tender Oropharynx: moist mucus membranes, no erythema or tonsillar enlargement, posterior pharynx clear and lips, teeth and gums normal Neck: supple, no bruit, no lymphadenopathy or thyromegaly Cardiovascular: regular rate and rhythm, no murmur Respiratory: clear to auscultation and percussion, bilaterally Abdomen: soft, non-tender, non-distended, no liver, spleen or abnormal masses palpated Musculoskeletal: no clubbing, cyanosis or edema, peripheral pulses 2+ in all extremities and Knee:posterior cruciate ligament (PCL) laxity: right Neurologic: abnormal gait due to right knee instability and immobilizer. Decreased range ROM due to stiffness and pain Central nerves II - XII intact Psychiatric: alert, oriented, with appropriate affect Skin: skin color, texture and turgor are normal; no bruising, rashes or lesions noted Assessment/Plan 1. Acute internal derangement of right knee - CONSULT/REFERRAL ORTHOPAEDIC SURGERY 2. History of ARDS - XR CHEST 2 VW; Future 3. Tobacco dependence Discussed importance of cessation with her history of ARDS Discussed cessation options including Chantix Patient states she will consider and get back with us Labs Drawn today CBC, CMP, A1C, TSH/T4 REFLEX, HCV, HIV, LIPIDS Appropriate plan of ca re, desired health behaviors, goals and medications discussed with patient and educational resources and self-management tools provided, as applicable. Patient/family/guardian voice understanding. Barriers to adherence: none Ability to manage care: Good As necessary, prescribed medications and potential significant medication side effects or medicationinteractions were discussed with the patient and pt will let me know if any occur. Call or return to clinic prn if these symptoms worsen or fail to improve as anticipated. Call or report to ER if symptoms should symptoms progress or worsen. The patient indicates understanding of these issues and agrees with the plan. Isabelle [facility] Fatuma Shepard LVN - 11/09/2018 10:30 AM JORDANTCangie Avila is a 28 year old female Patient here today for establish care and referral. Reports 7 pain on scale 0/10, MD notified. Reviewed medications and allergies with patient today. Fall Risk Assessment/Screening performed with patient today and patient is not at risk for falls. Lab work drawn per provider orders. Needle stick x (1)attempt to left antecubital. Tolerated well. No bruising, or complaint of discomfort noted to site. documented in this encounter Plan of Treatment Name Type Priority Associated Diagnoses Order S chedule XR CHEST 2 VW IMAGING Routine History of ARDS Expected: 0 11/09/2018, Expires: 11/10/2019 Health Maintenance Due Date Last Done Comments [...] Results Not on filedocumented in this encounter Visit Diagnoses Diagnosis Acute internal derangement of right knee - Primary History of ARDS Personal history of other diseases of re spiratory system Tobacco dependence Tobacco use disorder documented in this encounter Insurance Payer Benefit Plan / Subscriber ID Effective Phone Address T ype Group Dates GIULIANO NOBLES [id number] 2018-Prese [phone] [facility] PRIMARY CARE nt [address] [place] [address] documented as of this encounter
--- OUTSIDE RECORDS SUMMARY | 2019-08-01 10:26 | XMS REPORT | Summary of Care ---
:1990 Author Organization [facility] - Health Address [address] [place] [address] Care Team Providers Name Role Phone Pcp, Patient Does Not Have A Primary Care Provider +1-000-00 0-0000 Encounter Details Date Type Department Care Team Description 11/16/2018 Orders Only [facility] Doctor Unassigned, No [address] [facility] [place] [address] [address] [place] [address] Allergies Active Allergy Reactions Severity Noted Date Comments Codeine Other - See comments 11/09/2018 Moises leonardo and ravindra documented as of this encounter (statuses as of 11/16/2018) Medications No known medicationsdocumented as of this encounter (statuses as of 11/16/2018) Active Problems No known active problemsdocumented as of this encounter (statuses as of 11/16/2018) Immunizations Name Administration Dates Next Due HPV 05/06/2008 documented as of this encounter Social History Tobacco Use Types Packs/Day Years Used Date Current Every Day Smoker Cigarettes 1 8 Smokeless Tobacco: Never Used Comments: [facility] Alcohol Use Drinks/Week oz/Week Comments [...] filedocumented in this encounter Plan of Treatment Date Type Specialty Care Team Description 11/16/2018 Office Visit Family Medicine Isabelle Ewing F TRUCK SALES MANAGER [address] [place], [place] [phone] Care, Ang Primary Health Maintenance Due Date Last Done Comments PNEUMOCOCCAL 0-64 YEARS COMBINED SERIES (1 of 1 - 1998 PPSV23) VARICELLA VACCINES (1 of 2 - 13+ 2-dose series) 2005 HPV VACCINES (2 - Female 3-dose series) 06/03/2008 05/06/19 09 DTaP,Tdap,and Td Vaccines (1 - Tdap) 2011 PAP SMEAR 2013 05/06/2008 INFLUENZA VACCINE (#1) 2018 documented as of this encounter Procedures Procedure Name Priority Date/Time Associated Diagnosis Comme nts EXTERNAL PROVIDER Routine 11/16/2018 12:01 AM CDT RECORDS documented in this encounter Results Not on filedocumented in this encounter Insurance Payer Benefit Plan / Subscriber ID Effective Phone Address T ype Group Dates GIULIANO NOBLES [id number] 2018-Lucrecia [phone] PR[address] PRIMARY CARE nt [address] [place] [address] documented as of this encounter
--- OUTSIDE RECORDS SUMMARY | 2019-08-01 10:26 | XMS REPORT | Summary of Care ---
:1990 Author Organization [facility] Address [address] [place] [address] Care Team Providers Name Role Phone Pcp, Patient Does Not Have A Primary Care Provider +1-000-00 0-0000 Reason for Referral (Routine) Status Reason Specialty Diagnoses / Referred By Referred To Procedures Contact Contact New Request Orthopedic Surgery Diagnoses Acute internal derangement of right knee Isabelle Ewing, Procedures CONSULT/REFERRAL ORTHOPAEDIC SURGERY [address] [address] Reason for Visit Reason Comments Establish Care Referral/consult Encounter Details Date Type Department Care Team Description 11/09/2018 Office Visit [facility] Isabelle Ewing, AIR TRAFFIC CONTROL OPERATOR [address] [place] [address] Acute internal derangement of right knee (Primary Dx); [facility] Primary History of ARDS; Clinic Tobacco dependence [address] [place] [address] Allergies Active Allergy Reactions Severity [...] in this encounter Progress Notes Isabelle Ewing, AIR TRAFFIC CONTROL OPERATOR - 11/09/2018 10:30 AM CDT Cc: Chief Complaint Patient presents with Establish Care Referral/consult HPI Matt Avila is a 28 year old female in clinic today to establish care with the [facility] Indigent program. Pt fell on August 21 this year, twisting her right knee. Went to [facility] in [place] where she was told she has ACL/PLC [...] issues and agrees with the plan. Isabelle [facility] Fatuma Shepard LVN - 11/09/2018 [...] Address T ype Group Dates GIULIANO NOBLES [id number] 2018-Prese [phone] PR[address] CARE PRIMARY CARE nt [address] [place] [address] documented as of this encounter
--- OUTSIDE RECORDS SUMMARY | 2019-08-01 10:27 | XMS REPORT | Summary of Care ---
:1990 Author Organization [facility] Address [address] [place] [address] Care Team Providers Name Role Phone Pcp, Patient Does Not Have A Primary Care Provider +1-000-00 0-0000 Reason for Visit Reason Comments Lab Results Encounter Details Date Type Department Care Team Description 11/20/2018 Telephone [facility] Adult Primary Isabelle Ewing FNP Lab Results Care- [address] [address] [address] [place] [address] [place] [address] [phone] Allergies Active Allergy Reactions Severity Noted Date Comments Jose Cruz Other - See comments 11/09/2018 Moises dougherty documented as of this encounter (statuses as of 11/20/2018) Medications Medication Sig Dispensed Refills Start Date End Date Status traMADol 50 mg Take 1 tablet by 25 tablet 0 11/16/2018 Active tabletIndications: mouth every 8 Acute internal (eight) hours as derangement of right needed for Pain knee (scale 7-10) (can take tramadol. Can not take tylenol #3). documented as of this encounter (statuses as of 11/20/2018) Active Problems No known active problemsdocumented as of this encounter (statuses as of 11/20/2018) Immunizations Name Administration Dates Next Due HPV 05/06/2008 documented as of this encounter Social History Tobacco Use Types Packs/Day Years Used Date Current Every Day Smoker Cigarettes 1 8 Smokeless Tobacco: Never Used Comments: [facility] Alcohol Use Drinks/Week oz/Week Comments [...] Treatment Date Type Specialty Care Team Description 11/28/2018 Office Visit Orthopedic Surgery Dimas Castro MD [address] [place], [place] [address] Health Maintenance Due Date Last Done Comments [...] Address T e Group Dates GIULIANO NOBLES [id number] 2018-Lucrecia [phone] PRIMARY CARE PRIMARY CARE nt [address] [place] [address] documented as of this encounter
--- OUTSIDE RECORDS SUMMARY | 2019-08-01 10:27 | XMS REPORT | Summary of Care ---
:1990 Author Organization [facility] Address [address] [place] [address] Care Team Providers Name Role Phone Pcp, Patient Does Not Have A Primary Care Provider +1-000-00 0-0000 Reason for Visit Reason Comments Follow-up LAB WORK Encounter Details Date Type Department Care Team Description 11/16/2018 Office Visit [facility] Isabelle Ewing, PHARMACY SCHEDULER [address] [place], [place] [phone] Lymphocytosis (Primary Dx); [facility] Primary Acute internal derangement of right knee ; Clinic Tobacco dependence [address] [place] [address] Allergies Active Allergy Reactions Severity [...] Never Used Comments: [facility] Alcohol Use Drinks/Week oz/Week Comments [...] Sign Reading Time Taken Comments Blood Pressure 110/73 11/16/2018 9:46 AM CDT Pulse 87 11/16/2018 9:46 AM CDT Temperature 36.9 C (98.5 F) 11/16/2018 9:46 AM CDT Respiratory Rate 20 11/16/2018 9:46 AM CDT Oxygen Saturation - - Inhaled Oxygen Concentration - - Weight 87.2 kg (192 lb 3.2 oz) 11/16/2018 9:46 AM CDT Height 160 cm (5' 3") 11/16/2018 9:46 AM CDT Body Mass Index 34.05 11/16/2018 9:46 AM CDT documented in this encounter Progress Notes Isabelle Ewing, PHARMACY SCHEDULER - 11/16/2018 9:30 AM CDT Cc: Chief Complaint Patient presents with Follow-up LAB WORK HPI Matt Avila is a 28 year old female in clinic today for follow up on her labs that were taken onher first visit on 11/09. CBC noted a 18.5 white blood cell count. In today to have it redrawn. States she has not had any fevers/chills, dysuria, n/v or open wounds. All other aspects of her labs were normal. Awaiting ortho appointment for left knee surgery for ACL, PCL and MCL tear. Takes no medications No other health issues No Past surgical history No pregnancies Medications No outpatient medications prior to visit. No facility-administered medications prior to visit. Review of Systems Constitutional: negative Eyes: negative Ears: negative Nose/Sinuses: negative Mouth/Throat: negative Cardiovascular: negative Respiratory: negative Gastrointestinal: negative Genitourinary: negative Musculoskeletal: See HPI Neuro: negative Psych: negative Endocrine: negative Vital Signs BP 110/73 (BP Location: Left arm, Patient Position: Sitting) | Pulse 87 | Temp 36.9 C (98.5 F)(Oral) | Resp 20 | Ht 5' 3" (1.6 m) | Wt 192 lb 3.2 oz (87.2 kg) | BMI 34.05 kg/m Physical Exam Appearance: patient alert and [...] bruising, rashes or lesions noted Assessment/Plan 1. Lymphocytosis - XR CHEST 2 VW; Future 2. Acute internal derangement of right knee - traMADol 50 mg tablet; Take 1 tablet by mouth every 8 (eight) hours as needed for Pain (scale 7-10) (can take tramadol. Can not take tylenol #3). Dispense: 25 tablet; Refill: 0 3. Tobacco dependence Discussed importance of cessation with her history of ARDS Labs Drawn on last visit were: CBC, CMP, A1C, TSH/T4 REFLEX, HCV, HIV, [...] issues and agrees with the plan. Isabelle [facility] Fatuma Shepard LVN - 11/16/2018 9:30 AM JORDANTCangie Avila is a 28 year old female Patient here today for follow up and lab work. Reports 10 pain on scale 0/10, MD notified. Reviewed medications and allergies with patient today. Fall Risk Assessment/Screening performed with patient today and patient is not at risk for falls. Lab work drawn per provider orders. Needle stick x (1) attempt to right lateral antecubital. Tolerated well. No bruising, or complaint of discomfort noted to site. documented in this encounter Plan of Treatment Date Type Specialty Care Team Description 11/28/2018 Office Visit Orthopedic Surgery Dimas Castro MD [address] [facility] [address] [place] [address] Name Type Priority Associated Diagnoses Order S chedule XR CHEST 2 VW IMAGING Routine Lymphocytosis Expected: , Expires: 01/16/2019 Health Maintenance Due Date Last Done Comments [...] filedocumented in this encounter Visit Diagnoses Diagnosis Lymphocytosis - Primary Lymphocytosis (symptomatic) Acute internal derangement of right knee Tobacco dependence Tobacco use disorder documented in this encounter Insurance Payer Benefit Plan / Subscriber ID Effective Phone Address T e Group Dates GIULIANO NOBLES [id number] 2018-Prese [phone] PRIMARY CARE PRIMARY CARE nt [address] [place] [address] documented as of this encounter
--- OUTSIDE RECORDS SUMMARY | 2019-08-01 10:27 | XMS REPORT | Summary of Care ---
:1990 Author Organization [facility] Address [address] [place] [address] Care Team Providers Name Role Phone Pcp, Patient Does Not Have A Primary Care Provider +1-000-00 0-0000 Encounter Details Date Type Department Care Team Description 11/30/2018 Prep For Surgery [facility] Michael Sinha MD and Clinics [address] [place] [address]. [address] [place] [address] [place] [address] [place], [place] [phone] [address] [phone] Allergies Active Allergy Reactions Severity Noted Date Comments Codeine Other - See comments 11/09/2018 Moises dougherty documented as of this encounter (statuses as of 11/30/2018) Medications Medication Sig Dispensed Refills Start Date End Date Status traMADol 50 mg Take 1 tablet by 25 tablet 0 11/16/2018 Active tabletIndications: mouth every 8 Acute internal (eight) hours as derangement of right needed for Pain knee (scale 7-10) (can take tramadol. Can not take tylenol #3). documented as of this encounter (statuses as of 11/30/2018) Active Problems Problem Noted Date Rupture of anterior cruciate ligament of left knee, in itial encounter 11/29/2018 Overview: Added automatically from request for altagracia sanders [id number] documented as of this encounter (statuses as of 11/30/2018) Immunizations Name Administration Dates Next Due HPV 05/06/2008 documented as of this encounter Social History Tobacco Use Types Packs/Day Years Used Date Current Every Day Smoker Cigarettes 1 8 Smokeless Tobacco: Never Used Comments: [facility] Alcohol Use Drinks/Week oz/Week [...] Treatment Date Type Specialty Care Team Description 12/05/2018 Ancillary Visit Physical Therapy Joel Garnett MD [address] [place] [phone] Lyssa Stein, PT [address] [place] [address] 01/05/2019 Office Visit Orthopedic Surgery Dimas Castro MD [id number] [place], [place] [address] 01/11/2019 Hospital Encounter Surgery Dimas Castro MD Rupture of anterior [address] cruciate ligame nt OC2006 of left knee, [place], [place] initial encoun ter [id number] 01/26/2019 Office Visit Orthopedic Surgery Dimas Castro MD [id number] [place], [place] [address] Health Maintenance Due Date Last Done Comments [...] in this encounter Insurance Payer Benefit Plan Subscriber ID Effective Phone Address Typ e / Group Dates RAPHAELJEWELS GIULIANO [id number] 2018-Prese [phone] PRIMARY CARE PRIMARY CARE nt [address] [place] [address] [place] [place] [id number] 2018-Prese [phone] [facility] C I H C nt [address] [place] [address] documented as of this encounter
--- OUTSIDE RECORDS SUMMARY | 2019-08-01 10:27 | XMS REPORT | Summary of Care ---
:1990 Author Organization [facility] Address [address] [place] [address] Care Team Providers Name Role Phone Pcp, Patient Does Not Have A Primary Care Provider +1-000-00 0-0000 Reason for Visit Reason Comments Lab Results Encounter Details Date Type Department Care Team Description 11/20/2018 Telephone [facility] Adult Primary Isabelle Ewing FNP Lab Results Care- [address] [address] [address] [place] [address] [place] [address] [phone] Allergies Active Allergy Reactions Severity Noted Date Comments Jose Cruz Other - See comments 11/09/2018 Moises dougherty documented as of this encounter (statuses as of 11/22/2018) Medications Medication Sig Dispensed Refills Start Date End Date Status traMADol 50 mg Take 1 tablet by 25 tablet 0 11/16/2018 Active tabletIndications: mouth every 8 Acute internal (eight) hours as derangement of right needed for Pain knee (scale 7-10) (can take tramadol. Can not take tylenol #3). documented as of this encounter (statuses as of 11/22/2018) Active Problems No known active problemsdocumented as of this encounter (statuses as of 11/22/2018) Immunizations Name Administration Dates Next Due HPV [...] Castro MD [address] [place] [address] Health Maintenance Due Date Last Done [...] Phone Address Typ e / Group Dates GIULIANO NOBLES [id number] 2018-Prese [phone] PRIMARY CARE PRIMARY CARE nt [address] [place] [address] [place] [place] [id number] 2018-Prese [phone] [facility] H C I H C nt [address] [place] [address] documented as of this encounter
--- OUTSIDE RECORDS SUMMARY | 2019-08-01 10:27 | XMS REPORT | Summary of Care ---
:1990 Author Organization [facility] - Health Address [address] [place] [address] Care Team Providers Name Role Phone Pcp, Patient Does Not Have A Primary Care Provider +1-000-00 0-0000 Encounter Details Date Type Department Care Team Description 11/09/2018 Orders Only [facility] Doctor Unassigned, No [address] [facility] [place] [address] [address] [place] [address] Allergies Active Allergy Reactions Severity Noted Date Comments Codeine Other - See comments 11/09/2018 Moises leonardo and ravindra documented as of this encounter (statuses as of 11/22/2018) Medications No known medicationsdocumented as of this [...] Never Used Comments: [facility] Alcohol Use [...] Castro MD [address] [place] [address] [phone] Health Maintenance Due Date Last Done Comments [...] Name Priority Date/Time Associated Diagnosis Comme nts NOTICE OF PRIVACY Routine 11/09/2018 12:01 AM CDT PRACTICES documented in this encounter Results Not on filedocumented in this encounter Insurance Payer Benefit Plan Subscriber ID Effective Phone Address Typ e / Group Dates GIULIANO NOBLES [id number] 2018-Prese [phone] PRIMARY CARE PRIMARY CARE nt [address] [place] [address] [place] [place] [id number] 2018-Prese [phone] [facility] H C I H C nt [address] [place] [address] documented as of this encounter
--- OUTSIDE RECORDS SUMMARY | 2019-08-01 10:27 | XMS REPORT | Summary of Care ---
:1990 Author Organization [facility] Address [address] [place] [address] Care Team Providers Name Role Phone Pcp, Patient Does Not Have A Primary Care Provider +[id number] 0-0000 Reason for Visit Reason Comments Follow-up LAB WORK Encounter Details Date Type Department Care Team Description 11/16/2018 Office Visit [facility] Isabelle Ewing, PACKAGING SALES CONSULTANT [address] [place], [place] [id number] Lymphocytosis (Primary Dx); [facility] Primary Acute internal derangement of right knee ; Clinic Tobacco dependence [address] [place] [address] Allergies Active Allergy Reactions Severity [...] Never Used Comments: [facility] Use [...] in this encounter Progress Notes Isabelle Ewing, PACKAGING SALES CONSULTANT - 11/16/2018 9:30 AM CDT Cc: Chief [...] issues and agrees with the plan. Isabelle [facility] Fatuma Shepard LVN - 11/16/2018 9:30 AM [...] Orthopedic Surgery Dimas Castro MD [address] [facility] [address] [place] [address] 555 Name Type Priority Associated Diagnoses Order [...] Address T e Group Dates GIULIANO NOBLES [id number] 2018-Prese [phone] [facility]IMARY CARE [address] [place] [address] documented as of this encounter
--- OUTSIDE RECORDS SUMMARY | 2019-08-01 10:27 | XMS REPORT | Summary of Care ---
:1990 Author Organization [facility] Address [address] [place] [address] Care Team Providers Name Role Phone Pcp, Patient Does Not Have A Primary Care Provider +1-000-00 0-0000 Reason for Referral (Routine) Status Reason Specialty Diagnoses / Referred By Referred To Procedures Contact Contact New Request Physical Therapy Diagnoses Rupture of anterior cruciate ligament of left knee, initial encounter Dimas Castro, Procedures CONSULT/REFERRAL PHYSICAL THERAPY 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 [address] [place] [address] Encounter Details Date Type Department Care Team Description 11/28/2018 Office Visit [facility] Orthopaedic Dimas Castro R upture of anterior cruciate ligament of left knee, initial encounter (Primary Dx); Surgery- [facility] [address] [facility] [address] [facility] [id number] [address] [place] [phone] Allergies Active Allergy Reactions Severity Noted Date Comments Codeine Other - See comments 11/09/2018 Moises dougherty documented as of this encounter (statuses as of 11/28/2018) Medications Medication Sig Dispensed Refills Start Date End Date Status traMADol 50 mg Take 1 tablet by 25 tablet 0 11/16/2018 Active tabletIndications: mouth every 8 Acute internal (eight) hours as derangement of right needed for Pain knee (scale 7-10) (can take tramadol. Can not take tylenol #3). documented as of this encounter (statuses as of 11/28/2018) Active Problems No known active problemsdocumented as of this encounter (statuses as of 11/28/2018) Immunizations Name Administration Dates Next Due HPV 05/06/2008 documented as of this encounter Social History Tobacco Use Types Packs/Day Years Used Date Current Every Day Smoker Cigarettes 1 8 Smokeless Tobacco: Never Used Comments: will [facility] date Alcohol Use Drinks/Week oz/Week Comments [...] Sign Reading Time Taken Comments Blood Pressure 114/63 11/28/2018 3:58 PM CDT Pulse - - Temperature 36.9 C (98.5 F) 11/28/2018 3:58 PM CDT Respiratory Rate - - Oxygen Saturation - - Inhaled Oxygen Concentration - - Weight 85.3 kg (188 lb) 11/28/2018 3:58 PM CDT Height 160 cm (5' 3") 11/28/2018 3:58 PM CDT Body Mass Index 33.3 11/28/2018 3:58 PM CDT documented in this encounter Progress Notes Michael Sinha MD - 11/28/2018 3:30 PM CDTI, Michael Sinha MD, personally interviewed, examined and/or ordered the services described in this documentation, as scribed by Ashley Gomez in my presence, and it is both accurate and complete. Michael Sinha MD 11/28/2018 5:03 PM uring, Ashley Kraft - 11/28/2018 3:30 PM CDT CHIEF COMPLAINT We were asked to see this patient to give my opinion regarding Matt Avila, a female who presents with Left knee pain. HISTORY OF PRESENT ILLNESS Matt Avila is a female who complains of left knee pain that began on 08/21/2018 after a fall. Patient reports falling off of porch stairs. She presented to urgent care where and Xray and MRI was ordered and her knee was placed in a knee immobilizer. 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 Allergies Allergies Allergen Reactions Codeine Other - See comments Sweating and shakey Medications Current Outpatient Medications Medication Sig Dispense Refill traMADol 50 mg tablet Take 1 tablet by mouth every 8 (eight) hours as needed for Pain (scale 7-10) (can take tramadol. Can not take tylenol #3). 25 tablet 0 No current facility-administered medications for this visit. Social History Social History Tobacco Use Smoking status: Current Every Day Smoker Packs/day: 1.00 Years: 8.00 Pack years: 8.00 Types: Cigarettes Smokeless tobacco: Never Used Tobacco comment: will discuss quitting at future date Substance Use Topics Alcohol use: Yes Frequency: Monthly or less Binge frequency: Less than monthly Comment: 1-2 times/ year Drug use: Never Family History No family history on file. REVIEW OF SYSTEMS LB: negative S: negative Hip: negative Ankle Complaints: negative Card-Pulm: negative GI: negative : negative Constitutional: negative REVIEW OF SYSTEMS Patient denies constitutional symptoms, motor or sensory changes, cardiac and pulmonary symptoms, gastrointestinal and urinary symptoms or difficulties, and reports no calf pain or swelling. No acute changes in respiration, neurologic status, or psychiatric behavior. No acute changes to skin, vision, or mental status. PHYSICAL EXAMINATIONS Constitutional: alert and oriented x 3; no apparent distress, normal temperature HEENT: PERRLA; moist mucous membranes, appropriate muscular symmetry Respiratory: normal, without labor, appropriate exchange volumes, no rales Cardiovascular: appropriate capillary refill of extremities, regular rate, rhythm Abdomen: soft and non-tender, non-distressed, no abdominal extension Skin: skin color, texture and turgor are normal; no abnormal bruising, no rashes noted Neurologic: cranial nerves grossly intact; sensation grossly intact Psychiatric : no abnormal affect, appropriate, able to cooperate to baseline level Lower Back/Hip/Ankle Exam- ROM: Flexion- normal Extension- normal Rotation- normal Tenderness: negative SI Joint Tenderness: negative Chaim's Test: negative Hip ROM: negative PNF / PNLS: negative Axial Compression R- negative L- negative G.T. Tenderness R- negative L- negative Gluteal Tenderness R- negative L- negative ABD's: negative I.T.: negative Ankle: Posterior Tib. Strength- normal Heel Cords 0- normal; 90- normal Knee Exam: Knee Alignment: normal Skin / Temperature: normal Effusion: Atrophy: negative Muscle Tone: normal ROM- Passive Extension: 0 Flexion: 115 ROM-Active Extension: as above Flexion: as above SLR: intact Instability (Hard / Soft end Points): General Ligament Laxity Anterior (Danica's / Drawer): 2.5+/2.5+ AL (Pivot-Jerk Test): negative Varus (0/30): normal/normal Valgus (0/30): normal/normal Posterior (Lach / Drawer): + Drawer 1.[address] ( 30 / ): negative ERRT: negative Recurvatum: negative Anterior tibial step-off: normal Quad Active test: normal Flexibility: Hamstrings ( Ant. Pop. Angle): normal Heel Cords: normal Meniscal Exam: Joint Line Tenderness Medial: negative Joint Line Tenderness Lateral: negative Cari ( Sympt / Mech ): negative Stress Test: negative Patello-Femoral: Apprehension: negative Translation 0 ( Medial- normal/ Lateral- normal) 30 (Medial- normal/ Lateral- normal) Tracking: normal Q> 0: normal 90: normal NORBERTO: BAJA / ONI: VALG Fat Pad Tenderness: negative Plical Bands: negative Synovial Folds: negative Bone Palpation: Medial Femoral Condyle: negative Lateral Femoral Condyle: negative Fibular Head: negative Patella Femoral Articulation: negative medial/lateral Tibial Plateau: negative medial/lateral Epicondyles: negative medial/lateral Tibial Tubercle: negative Adduction Tibial Tubercle: negative Bursa/ Tendon Insertions/ Tendons: Patella Tenderness: negative Retinculum: negative medial/lateral VMO/VLO: negative Prepatella Bursa: negative Infrapatella Bursa: negative PES ANS: negative Popliteus: negative Biceps: negative Fibular Head: negative Semimembranosus: negative Gastrocnemius: negative medial/lateral Popliteal Space: negative Calf: negative Patella Femoral Crepitation: negative Tibial Femoral Crepitation: negative Neurovascular Status normal RADIOLOGY Xr Knee 3 Vw Left Result Date: 11/28/2018 Bony avulsions over the lateral ankle joint with periarticular osteopenia and joint effusion. Prior lateral patellofemoral dislocation and relocation is not reliably excluded. 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 It has been discussed that supervised and professionally directed therapy is necessary to optimize outcome and prevent complications of condition. Pre-Op PT 1-2 times a week for 2-3 weeks (Jesika) Non-operative and surgical care discussed in detail and offered. Patient desires to pursue operative measures. Patient continues with significant/severe pain and dysfunction due to diagnosis/condition despite non-operative measures which involve many of the following measures including activity modification, anti-inflammatory medicine and/or other over the counter medicines, history of previous injection therapy, occasional resting of extremity and/or bracing, and applied modalities and formal physical therapy or home therapeutic exercises. Individually, and collectively these measures have been insufficientin reducing pain and/or improving patient function, resulting in patient's desire to pursue surgical care/intervention. I discussed these diagnoses with Ms. Avila. At this time she desires to schedule surgery; Left knee arthroscopy, ACL-R, Possible MCL Repair; Possible Allograft, 01-11-19 (LC), possible open procedure. I have offered and reviewed non operative measures as well as operative intervention. At this time she desires to pursue surgical care. Indications, operative risks, potential outcomes and benefitsdiscussed and reviewed in detail. Operative risks discussed included but were not limited to infection, continued pain, increasing pain, no improvement, scarring, stiffness, loss of motion, need for lengthy rehabilitation in the postoperative phases, worsening of the condition, need for revision and/or further surgical care, fracture of bone, loosening of prosthesis or implants either in the short-term or long-term, compromise to life and/or limb, bleeding, blood clots, compartment syndrome issues, transfusion risks, allograft risks, potential injury to associated structures which may include nerve, vessel, muscle, tendon, ligament, and/or bone or cartilage which may result in loss of muscle strength, changes or losses in sensation, and/or limb dysfunction or deformity, less prevalent complications, unforeseen circumstances. These operative risks were discussed within the context of the [facility] preoperative surgical consent form. Both written and verbal consent were obtained. All questions were answered and thoroughly reviewed. Pre-operative evaluation/clearance to be performed by primary care physician/medical physician, anesthesia team, prior to operative intervention for evaluation of medical preparedness to undergo anesthesia and operative stress. Instructions for this/these evaluations were given to the patient and appropriate family/companions in attendance at clinic visit. Patient given pre-operative instructions. All findings and diagnosis were discussed with patient attime of visit. Patient states they understand and desire to pursue surgical care. Patient will return to clinic 7-10 days following surgical care for re- evaluation and discussion of post-operative care/ treatment. All findings and diagnosis were discussed with patient at time of visit. Patient states they understand and are in agreement with the treatment plan at this time, and the post-operative visit has been scheduled. Patient will return to clinic in 4 weeks for re-evaluation and discussion of treatment options. All findings and diagnosis were discussed with patient at time of visit. Patient states they understand and are in agreement with the treatment plan at this time. Scribe's Attestation Ashley Conway During, am scribing for and in the presence of Dimas Castro MD and resident Dr. Sinha. Dimas Castro MD performed the services described herein. Ashley Gomez, November 28, 2018, 4:59 PM documented in this encounter Plan of Treatment Date Type Specialty Care Team Description 01/05/2019 Office Visit Orthopedic Surgery Dimas Castro MD [address] [place], [place] [address] 01/26/2019 Office Visit Orthopedic Surgery Dimas Castro MD [address] [place], [place] [address] Health Maintenance Due Date Last Done Comments PNEUMOCOCCAL 0-64 YEARS COMBINED SERIES (1 of 1 - 1998 PPSV23) VARICELLA VACCINES (1 of 2 - 13+ 2-dose series) 2005 HPV VACCINES (2 - Female 3-dose series) 06/03/2008 05/06/19 09 DTaP,Tdap,and Td Vaccines (1 - Tdap) 2011 PAP SMEAR 2013 05/06/2008 INFLUENZA VACCINE (#1) 2018 documented as of this encounter Results XR KNEE 3 VW LEFT (11/28/2018 4:10 PM CDT) Specimen Impressions Performed At PACS/VR/DOSE Bony avulsions over the lateral ankle joint with peria rticular osteopenia and joint effusion. Prior lateral patellofemoral dislo cation and relocation is not reliably excluded. Narrative Performed At EXAM: PACS/VR/DOSE XR KNEE 3 VW LEFT HISTORY: pain COMPARISON: None FINDINGS: Imaging of the knee demonstrates mild la teral compartment marginal osteophyte formation. Osseous debris is seen over the lateral joint line. There is a small to moderate sized effus ion. Peripatellar soft tissue swelling is seen. Periarticular osteopen ia is seen. Procedure Note [facility], Radiant Results Inft User - 2018 4:48 PM CDT EXAM: XR KNEE 3 VW LEFT HISTORY: pain COMPARISON: None FINDINGS: Imaging of the knee demonstrates mild la teral compartment marginal osteophyte formation. Osseous debris is seen over the lateral joint line. There is a small to moderate sized effus ion. Peripatellar soft tissue swelling is seen. Periarticular osteopen ia is seen. IMPRESSION Bony avulsions over the lateral ankle jeff int with periarticular osteopenia and joint effusion. Prior lateral patell ofemoral dislocation and relocation is not reliably excluded. Performing Organization Address City/State/Zipcode Phone Number PACS/VR/DOSE documented in this encounter Visit Diagnoses Diagnosis Rupture of anterior cruciate ligament of left knee, initial encounter - Primary Pain Generalized pain documented in this encounter Insurance Payer Benefit Plan Subscriber ID Effective Phone Address Typ e / Group Dates [place] [id number] 2018-[facility] [phone] [facility] [address] [place] [address] documented as of this encounter
--- OUTSIDE RECORDS SUMMARY | 2019-08-01 10:27 | XMS REPORT | Summary of Care ---
:1990 Author Organization [facility] Address [address] [place] [address] Care Team Providers Name Role Phone Pcp, Patient Does Not Have A Primary Care Provider +1-000-00 0-0000 Reason for Referral Radiology Services (Routine) Status Reason Specialty Diagnoses / Referred By Referred To Procedures Contact Contact New Request Diagnostic Diagnoses Pain Dimas Castro, Radiology Procedures XR KNEE 3 VW LEFT [address] [place] [address] Radiology Services (Routine) Status Reason Specialty Diagnoses / Referred By Referred To Procedures Contact Contact New Request Diagnostic Diagnoses Pain Dimas Castro, Radiology Procedures XR KNEE 3 VW LEFT [address] [place] [address] Reason for Visit Radiology Services (Routine) Status Reason Specialty Diagnoses / Referred By Referred To Procedures Contact Contact New Request Diagnostic Diagnoses Pain Dimas Castro, Radiology Procedures XR KNEE 3 VW LEFT [address] [place] [address] Encounter Details Date Type Department Care Team Description 11/28/2018 Hospital Encounter [facility] Dimas Castro MD Arrived [facility] [address] [facility] [id number] [address] [facility] [place] [address] [place], [place] [phone] [address] [phone] Allergies Active Allergy Reactions Severity Noted Date Comments Codeine Other - See comments 11/09/2018 Moises dougherty documented as of this encounter (statuses as of 11/29/2018) Medications Medication Sig Dispensed Refills Start Date End Date Status traMADol 50 mg Take 1 tablet by 25 tablet 0 11/16/2018 Active tabletIndications: mouth every 8 Acute internal (eight) hours as derangement of right needed for Pain knee (scale 7-10) (can take tramadol. Can not take tylenol #3). documented as of this encounter (statuses as of 11/29/2018) Active Problems No known active problemsdocumented as of this encounter (statuses as of 11/29/2018) Immunizations Name Administration Dates Next Due HPV [...] Visit Orthopedic Surgery Dimas Castro MD [address] [facility] [address] [place] [address] 01/26/2019 Office Visit Orthopedic Surgery Dimas Castro MD [address] [place] [address] Health Maintenance Due Date Last Done [...] encounter Procedures Procedure Name Priority Date/Time Associated Comments Diagnosis XR KNEE 3 VW LEFT Routine 11/28/2018 4:10 PM Pain Res ults for this CDT procedure are i n the results section. DISCLOSURE AND Routine 11/28/2018 12:01 AM CONSENT, MEDICAL AND CDT SURGICAL PROCEDURES documented in this encounter Results XR KNEE 3 VW [...] documented in this encounter Visit Diagnoses Diagnosis Pain Generalized pain documented in this encounter Insurance Payer Benefit Plan Subscriber ID Effective Phone Address Typ e / Group Dates [place] [id number] 2018-Prese [phone] [facility] [address] [place] [address] documented as of this encounter
--- OUTSIDE RECORDS SUMMARY | 2019-08-01 10:27 | XMS REPORT | Summary of Care ---
:1990 Author Organization [facility] Address [address] [place] [address] Care Team Providers Name Role Phone Pcp, Patient Does Not Have A Primary Care Provider +1-000-00 0-0000 Encounter Details Date Type Department Care Team Description 11/24/2018 Orders Only [facility] Doctor Unassigned, No [address] [facility] [place] [address] [address] [place] [address] Allergies Active Allergy Reactions Severity Noted Date Comments Codeine Other - See comments 11/09/2018 Moises dougherty documented as of this encounter (statuses as of 11/24/2018) Medications Medication Sig Dispensed Refills Start Date End Date Status traMADol 50 mg Take 1 tablet by 25 tablet 0 11/16/2018 Active tabletIndications: mouth every 8 Acute internal (eight) hours as derangement of right needed for Pain knee (scale 7-10) (can take tramadol. Can not take tylenol #3). documented as of this encounter (statuses as of 11/24/2018) Active Problems No known active problemsdocumented as of this encounter (statuses as of 11/24/2018) Immunizations Name Administration Dates Next Due HPV [...] Castro MD [address] [place] [address] [phone] Health Maintenance Due Date Last Done Comments [...] Name Priority Date/Time Associated Diagnosis Comme nts PATIENT QUESTIONNAIRE Routine 11/24/2018 12:01 AM CDT documented in this encounter Results Not on filedocumented in this encounter Insurance Payer Benefit Plan Subscriber ID Effective Phone Address Typ e / Group Dates GIULIANO NOBLES [id number] 2018-Prese [phone] PRIMARY CARE PRIMARY CARE nt [address] [place] [address] [place] [id number] 2018-Prese [phone] [facility] H C I H C nt [address] [place] [address] documented as of this encounter
--- OUTSIDE RECORDS SUMMARY | 2019-08-01 10:27 | XMS REPORT | Summary of Care ---
:1990 Author Organization [facility] Address [address] [place] [address] Care Team Providers Name Role Phone Pcp, Patient Does Not Have A Primary Care Provider +1-000-00 0-0000 Reason for Referral (Routine) Status Reason Specialty Diagnoses / Referred By Referred To Procedures Contact Contact New Request Physical Therapy Diagnoses Rupture of anterior cruciate ligament of left knee, initial encounter Dimas Castro, Procedures CONSULT/REFERRAL PHYSICAL THERAPY [facility] [address] [place] [address] Radiology Services (Routine) Status Reason Specialty Diagnoses / Referred By Referred To Procedures Contact Contact New Request Diagnostic Diagnoses Pain Dimas Castro, Radiology Procedures XR KNEE 3 VW LEFT [address] [place] [address] Reason for Visit Reason Comments Knee Pain New Patient (Routine) Status Reason Specialty Diagnoses / Referred By Referred To Procedures Contact Contact Closed Orthopedic Surgery Diagnoses Acute internal derangement of right knee Isabelle Ewing, Procedures CONSULT/REFERRAL ORTHOPAEDIC SURGERY 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 [address] [place] [address] Encounter Details Date Type Department Care Team Description 11/28/2018 Office Visit [facility] Orthopaedic Dimas Castro R upture of anterior cruciate ligament of left knee, initial encounter (Primary Dx); Surgery- [place] [facility] [place] 301 [facility] 2240 [facility] [id number] 1.211 [place] [phone] Allergies Active Allergy Reactions Severity Noted Date [...] Never Used Comments: will discuss quitting at [facility] e date Alcohol Use Drinks/Week [...] Injury/Duration: 08/21/2018 Mechanism of Injury: Fall 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 Both written and [...] Castro MD [address] [place], [place] [address] 01/26/2019 Office Visit Orthopedic Surgery Dimas Castro MD [address] [place], [place] [address] Health Maintenance Due Date [...] Group Dates [place] [id number] 2018-[facility] [phone] [facility] I H nt 20 RA[place] [address] documented as of this encounter
--- OUTSIDE RECORDS SUMMARY | 2019-08-01 10:27 | XMS REPORT | Summary of Care ---
:1990 Author Organization [facility] Address [address] [place] [address] Care Team Providers Name Role Phone Pcp, Patient Does Not Have A Primary Care Provider +1-000-00 0-0000 Reason for Referral (Routine) Status Reason Specialty Diagnoses / Referred By Referred To Procedures Contact Contact New Request Pulmonary Disease Diagnoses Lymphocytosis Isabelle Ewing, Procedures CONSULT/REFERRAL PULMONARY IMPORT/EXPORT ANALYST [address] [place], [place] [address] Reason for Visit Reason Comments Follow-up Encounter Details Date Type Department Care Team Description 12/01/2018 Telephone [facility] Adult Primary Isabelle Ewing FNP Follow-up Care- [place] [address] [facility] [address], [address] [place] [address] [place] [address] [phone] Allergies Active Allergy Reactions Severity Noted Date Comments Codeine Other - See comments 11/09/2018 Moises dougherty documented as of this encounter (statuses as of 12/01/2018) Medications Medication Sig Dispensed Refills Start Date End Date Status traMADol 50 mg Take 1 tablet by 25 tablet 0 11/16/2018 Active tabletIndications: mouth every 8 Acute internal (eight) hours as derangement of right needed for Pain knee (scale 7-10) (can take tramadol. Can not take tylenol #3). documented as of this encounter (statuses as of 12/01/2018) Active Problems Problem Noted Date Rupture of anterior cruciate ligament of left knee, in itial encounter 11/29/2018 Overview: Added automatically from request for altagrcaia sanders [id number] documented as of this encounter (statuses as of 12/01/2018) Immunizations Name Administration Dates Next Due HPV 05/06/2008 documented as of this encounter Social History Tobacco Use Types Packs/Day Years Used Date Current Every Day Smoker Cigarettes 1 8 Smokeless Tobacco: Never Used Comments: [facility] Alcohol Use Drinks/Week [...] Ancillary Visit Physical Therapy Joel Garnett MD [address] [place] [phone] Lyssa Stein, PT [address] [place] [address] 01/05/2019 Office Visit Orthopedic Surgery Dimas Castro MD [address] [id number] [place], [place] [address] 01/11/2019 Hospital Surgery Dimas Castro MD Rupture of anterior Encounter [address] cruciate ligame nt of [id number] left knee, initial [place], [place] encounter [id number] 01/11/2019 Surgery Surgery Dimas Castro MD ANTERIOR CRUCIATE [address] LIGAMENT [id number] RECONSTRUCTION [place], [place] [address] 01/26/2019 Office Visit Orthopedic Surgery Dimas Castro MD [address] [id number] [place] [address] [phone] Health Maintenance Due Date Last Done Comments [...] Diagnoses Diagnosis Lymphocytosis - Primary Lymphocytosis (symptomatic) History of ARDS Personal history of other diseases of re spiratory system documented in this encounter Insurance Payer Benefit Plan Subscriber ID Effective Phone Address Typ e / Group Dates GIULIANO NOBLES [id number] 2018-Prese [phone] [facility] PRIMARY CARE nt [address] [place] [address] [place] GIULIANO CORoberta [id number] 2018-Prese [phone] [facility] H C I H C nt 20 [place] [address] documented as of this encounter
--- OUTSIDE RECORDS SUMMARY | 2019-08-01 10:28 | XMS REPORT | Summary of Care ---
:1990 Author Organization [facility] Address [address] [place] [address] Care Team Providers Name Role Phone Pcp, Patient Does Not Have A Primary Care Provider +1-000-00 0-0000 MALAIKA Ewing Primary Care Provider Reason for Visit Reason Comments Follow-up DISCHARGE (Routine) Status Reason Specialty Diagnoses / Referred By Referred To Procedures Contact Contact Closed Physical Therapy Diagnoses Rupture of anterior cruciate ligament of left knee, initial encounter Dimas Castro, Gregoria Physical Procedures CONSULT/REFERRAL PHYSICAL THERAPY Preferred location: ([facility] Therapy [address] [place] [address] Professional [id number] Office Building [place] [id number] Phone: [place], [place] [phone] [address] Fax: Encounter Details Date Type Department Care Team Description 01/03/2019 Ancillary Visit [facility] Joel Garnett MD [address] [facility] [place] [address] Chronic pain of left knee (Primary Dx); Physical Therapy- Michael Mcqueen, CHEMICAL ENGINEER [address] [place] [address] Decreased muscle strength [place] [facility] Building [address] [place] [address] [address] [place] [address] Allergies Active Allergy Reactions Severity Noted Date Comments Codeine Other - See comments 11/09/2018 Moises leonardo and ravindra documented as of this encounter (statuses as of 07/03/2019) Medications Medication Sig Dispensed Refills Start Date End Date Status traMADol 50 mg Take 1 tablet by 25 tablet 0 11/16/2018 Active tabletIndications: mouth every 8 Acute internal (eight) hours as derangement of right needed for Pain knee (scale 7-10) (can take tramadol. Can not take tylenol #3). documented as of this encounter (statuses as of 07/03/2019) Active Problems Problem Noted Date Obesity (BMI 30-39.9) 01/11/2019 Rupture of anterior cruciate ligament of left knee, in itial encounter 11/29/2018 Overview: Added automatically from request for altagracia marilyn [id number] documented as of this encounter (statuses as of 07/03/2019) Immunizations Name Administration Dates Next Due HPV 05/06/2008 documented as of this encounter Social History Tobacco Use Types Packs/Day Years Used Date Current Every Day Smoker Cigarettes 1 8 Smokeless Tobacco: Never Used Comments: will discuss quitting at [facility] e date Alcohol Use Drinks/Week oz/Week Comments [...] Signs Not on filedocumented in this encounter Progress Notes Lyssa Stein, PT - 01/03/2019 9:30 AM CDT Outpatient Discharge Note Late Entry Physical Therapy Diagnosis: M25.562, G89.29 Chronic pain of left knee (primary encounter diagnosis) M62.81 Decreased muscle strength Date of initial visit: 12/13/2018 Date of last visit: 01/03/2019 Total number of visits: 6 Functional status at discharge: 01/03/19 0900 General Visit Number 6 Chart Reviewed Yes Family/Caregiver Present No General Comments visit 6 of 6 Pain Assessment Pain Assessment No/denies pain Strength LLE L Hip Flexion 5/5 L Hip Extension 5/5 L Hip ABduction 5/5 L Hip ADduction 4/5 (4+/5) L Knee Flexion 4/5 (4+/5) L Knee Extension 5/5 L Ankle Dorsiflexion 5/5 Home program: Verbal and written instructions provided (with department phone number) to the patient. Goals achieved: Short Term Goals: To be met in 4 visits: 1. Pt will be Ind with HEP focusing on strengthening (met) 2. Patient will be able to increase strength by 1/2 grade to improve mobility. (met) Electrical Accessories I Assembler Goals: To be met in 6 visits: 1. Patient will be able to ascend/descend stairs with decreased knee pain symptoms. (met) 2. Pt will be prepared for surgery and will be ready to perform exercises pre op and post operatively. (met) 3. Pt will have scheduled for post op therapy (met) Goals not achieved (why): All goals achieved Goals met at discharge: 100% Discharged from Physical Therapy to home with home program. Lyssa Womack, PT [place] PT License [id number] [facility] Rehabilitation Services Department (phone) (fax) Michael Mcqueen PTA - 01/03/2019 9:30 AM CDT Physical Therapy Treatment Date: January 03, 2019 Subjective: Denies pain today, Surgery scheduled for next week. 1. Chronic pain of left knee 2. Decreased muscle strength Objective: Outpatient PT Treatment No documentation. HEP: Continue established HEP Assessment: See supv PT DC summary Plan: See supv PT summary Michael Mcqueen PTA [employer] Lic [id number] [facility] Rehab Services [facility] [phone] Lyssa Womack PT supv documented in this encounter Plan of Treatment Health Maintenance Due Date Last Done Comments VARICELLA VACCINES (1 of 2 - 2-dose childhood series) 1993 DTaP,Tdap,and Td Vaccines (1 - Tdap) 2003 PAP SMEAR 2013 05/06/2008 INFLUENZA VACCINE Completed 02/05/2019 PNEUMOCOCCAL 0-64 YEARS COMBINED SERIES Completed 02/06/20 19 documented as of this encounter Goals Goal Patient Goal Associated Recent Patient-Stated? Author Type Problems Progress Functional use General No Lyssa Stein, PT Note: Functional use of left lower leg, being able to bend it all the way, walking right- no more limping. documented as of this encounter Implants Implanted Type Area Mid Wife Device Shelf Model / Identifier Expiration Serial / Date Lot Endobutton, [employer] Cl Ultra 20 Mm #[id number] - Sna Endo button Left: [employer] 03/06/2023 [id number] / Implanted: Qty: 1 on 01/11/2019 by Dimas Castro MD at [facility] N A / [id number] Fastfix, [employer]hew 360 Curved Meniscal Repair #[id number] - Sna FAST-FIX AB Left: [employer] 06/10/2021 [id number] / Implanted: Qty: 3 on 01/11/2019 by Dimas Castro MD at [facility] N A / [id number] Cts (Comm. Tiss. Svc.) Aseptic Semitendonosus Tendon GRAFT Left: [facility] 01/13/2023 [id number] / Implanted: Qty: 1 on 01/11/2019 by Dimas Castro MD at [facility] Knee TISSUE 1 [id number] / [id number] Allograft, [facility] Tissue Services Thom itendonosis Graft #1014-14 - [id number] TISSUE Left: [facility] 08/24/2023 [id number] / Implanted: Qty: 1 on 01/11/2019 by Dimas Castro MD at [facility] Knee Tissue Services [id number] / [id number] Screw Interference 9mm X 25mm Biocomposite Regenesorb Biosure Left: [employer] 06/23/2021 [id number] / Implanted: Qty: 1 on 01/11/2019 by Dimas Castro MD at [facility] N A / [id number] documented as of this encounter Results Not on filedocumented in this encounter Visit Diagnoses Diagnosis Chronic pain of left knee - Primary Pain in joint, lower leg Decreased muscle strength Muscle weakness (generalized) documented in this encounter Insurance Payer Benefit Plan Subscriber ID Effective Phone Address Typ e / Group Dates [place] [id number] 2018-Lucre[place] [phone] [facility] C I H C nt [address] [place], [place] [address] documented as of this encounter
--- OUTSIDE RECORDS SUMMARY | 2019-08-01 10:28 | XMS REPORT | Summary of Care ---
:1990 Author Organization [facility] - Health Address [address] [place] [address] Care Team Providers Name Role Phone Pcp, Patient Does Not Have A Primary Care Provider +1-000-00 0-0000 Encounter Details Date Type Department Care Team Description 12/04/2018 Orders Only [facility] Doctor Unassigned, No 301 [facility] [place] [address] [address] [place] [id number] Allergies Active Allergy Reactions Severity Noted Date Comments Codeine Other - See comments 11/09/2018 Moises dougherty documented as of this encounter (statuses as of 12/14/2018) Medications Medication Sig Dispensed Refills Start Date End Date Status traMADol 50 mg Take 1 tablet by 25 tablet 0 11/16/2018 Active tabletIndications: mouth every 8 Acute internal (eight) hours as derangement of right needed for Pain knee (scale 7-10) (can take tramadol. Can not take tylenol #3). documented as of this encounter (statuses as of 12/14/2018) Active Problems Problem Noted Date Rupture of anterior cruciate ligament of left knee, in itial encounter 11/29/2018 Overview: Added automatically from request for altagracia ahumaday [id number] documented as of this encounter (statuses as of 12/14/2018) Immunizations Name Administration Dates Next Due HPV 05/06/2008 documented as of this encounter Social History Tobacco Use Types Packs/Day Years Used Date Current Every Day Smoker Cigarettes 1 8 Smokeless Tobacco: Never Used Comments: will discuss quitting at futur e [...] Treatment Date Type Specialty Care Team Description 12/18/2018 Ancillary Visit Physical Therapy Lyssa Stein, PT [address] [place] [address] 12/20/2018 Ancillary Visit Physical Therapy Lyssa Stein, PT [address] [place] [address] 12/25/2018 Ancillary Visit Physical Therapy Lyssa Stein, PT [address] [place] [address] 12/27/2018 Ancillary Visit Physical Therapy Krupa Mcqueen, CASE OPERATOR [address] [place] [address] 01/05/2019 Office Visit Orthopedic Surgery Dimas Castro MD [address] [id number] [place], [place] [address] 01/11/2019 Hospital Surgery Dimas Castro MD Rupture of anterior Encounter [address] cruciate ligame nt of [id number] left knee, initial [place], [place] encounter 277265 01/11/2019 Surgery Surgery Dimas Castro MD ANTERIOR CRUCIATE [address] LIGAMENT [id number] RECONSTRUCTION [place], [place] [address] 01/26/2019 Office Visit Orthopedic Surgery Dimas Castro MD [address] [id number] [place], [place] [address] 02/21/2019 Office Visit Pulmonary Disease Armando Núñez MD [address] AL4260 [place], [place] [address] Health Maintenance Due Date Last Done Comments [...] Name Priority Date/Time Associated Diagnosis Comme nts SCANNED LAB RESULTS Routine 12/04/2018 12:01 AM CDT documented in this encounter Results SCANNED LAB RESULTS (12/04/2018 12:01 AM CDT) Specimen Performing Organization Address City/State/Zipcode Phone Number HIM documented in this encounter Insurance Payer Benefit Plan Subscriber ID Effective Phone Address Typ e / Group Dates GIULIANO NOBLES [id number] 2018-Prese [phone] PRIMARY CARE PRIMARY CARE nt [address] [place] [address] [place] [id number] 2018-Prese [phone] [facility] H C I H C nt [address] [place] [address] documented as of this encounter
--- OUTSIDE RECORDS SUMMARY | 2019-08-01 10:28 | XMS REPORT | Summary of Care ---
:1990 Author Organization [facility] Address [address] [place] [address] Care Team Providers Name Role Phone Pcp, Patient Does Not Have A Primary Care Provider +1-000-00 0-0000 Reason for Referral (Routine) Status Reason Specialty Diagnoses / Referred By Referred To Procedures Contact Contact New Request Pulmonary Disease Diagnoses Lymphocytosis Isabelle Ewing, Procedures CONSULT/REFERRAL PULMONARY KLYSTROM TUBE TESTER [address] [place], [place] [address] Reason for Visit Reason Comments Follow-up Encounter Details Date Type Department Care Team Description 12/01/2018 Telephone [facility] Adult Primary Isabelle Ewing FNP Follow-up Care- [place] [address] [facility] 3, [address] [place] [address] [place] [address] [phone] Allergies Active Allergy Reactions Severity Noted Date [...] Added automatically from request for altagracia sanders [id number] documented as of this encounter (statuses as of 12/01/2018) Immunizations Name Administration Dates Next Due HPV 05/06/2008 documented as of this encounter Social History Tobacco Use Types Packs/Day Years Used Date Current Every Day Smoker Cigarettes 1 8 Smokeless Tobacco: Never Used Comments: [facility] Alcohol Use Drinks/Week oz/Week Comments [...] Physical Therapy Joel Garnett MD [address] [place] [phone] Lyssa Stein, PT [address] [place] [address] 01/05/2019 Office Visit Orthopedic Surgery Dimas Castro MD [address] [id number] [place], [place] [address] 01/11/2019 Hospital Surgery Dimas Castro MD Rupture of anterior Encounter [address] cruciate ligame nt of [id number] left knee, initial [place], [place] encounter [id number] 01/11/2019 Surgery Surgery Dimas Castro MD ANTERIOR CRUCIATE [address] L[address]ENT [id number] RECONSTRUCTION [place], [place] [address] 01/26/2019 Office Visit Orthopedic Surgery Dimas Castro MD [address] [id number] [place] [address] [phone] Health Maintenance Due Date Last Done Comments [...] Typ e / Group Dates GIULIANO NOBLES [id number] 2018-Prese [phone] PRIMARY CARE PRIMARY CARE nt [address] [place] [address] [place] GIULIANO CORoberta [id number] 2018-Prese [phone] [facility] H C I H C nt 20 [employer] [facility] [place] [id number] documented as of this encounter
--- OUTSIDE RECORDS SUMMARY | 2019-08-01 10:28 | XMS REPORT | Summary of Care ---
:1990 Author Organization [facility] Address [address] [place] [address] Care Team Providers Name Role Phone Pcp, Patient Does Not Have A Primary Care Provider +1-000-00 0-0000 Reason for Visit Reason Comments New Evaluation (Routine) Status Reason Specialty Diagnoses / Referred By Referred To Procedures Contact Contact Authorized Physical Therapy Diagnoses Rupture of anterior cruciate ligament of left knee, initial encounter Dimas Castro Adc Physical Procedures CONSULT/REFERRAL PHYSICAL THERAPY Preferred location: (RonEdi) Therapy [address] [facility] Professional [id number] Office Building [address] Phone: [address] [place] Fax: [phone] Encounter Details Date Type Department Care Team Description 12/13/2018 Ancillary Visit [facility] Joel Garnett MD [address] [place] [address] [place] [address] Chronic pain of left knee (Primary Dx); Physical Therapy- Lyssa Stein, PT [address] [place] [address] Decreased muscle strength [place] Professional Office Building [address] [place] [address] [address] [place] [address] Allergies Active Allergy Reactions Severity [...] Added automatically from request for altagracia sanders [id number] documented as of this encounter (statuses as of 12/14/2018) Immunizations Name Administration Dates Next Due HPV 05/06/2008 documented as of this encounter Social History Tobacco Use Types Packs/Day Years Used Date Current Every Day Smoker Cigarettes 1 8 Smokeless Tobacco: Never Used Comments: will discuss quitting at [facility] e date Alcohol Use Drinks/Week oz/Week Comments [...] encounter Progress Notes Lyssa Stein, PT - 12/13/2018 1:45 PM CDT Initial Evaluation Date: December 13, 2018 Diagnosis: 1. Chronic pain of left knee 2. Decreased muscle strength Date of onset: August 21, 2018 History of Condition: Pt presents to clinic for pre op evaluation of her L knee. Patient was runningbehind her dog at home on and she fell down her stairs. She immediately hurt herself and was not able to get up. Patient went to the MD and was told she had to have surgery to repair torn ligaments- ACL, PCL, and MCL. Patient agreeable for evaluation and ready to learn what she has to do to get better. Knowledge of condition: Good Quality of life: Good Prior physical therapy: No Patient Goals: Goals None Past Medical History: Diagnosis Date History of adult respiratory distress syndrome (ARDS) 04/29/2018 No past surgical history on file. Objective: Outpatient PT Evaluation and Re-Evaluation Row Name 12/13/18 1356 General Visit Number 1 Chart Reviewed Yes Family/Caregiver Present Yes Pain Assessment Pain Assessment 0-10 Pain Score 10 - Worst possible pain Post-Treatment Pain Score 6 Pain Type Acute pain Pain Location Knee Pain Orientation Left Pain Descriptors Burning;Shooting;Sharp Pain Frequency Intermittent Pain Onset Gradual Clinical Progression Gradually improving Home Living Type of Home Mobile home Lives With Alone Home Adaptive Equipment Crutches Home Access Stairs to enter with rails;Other (Comment) Pt with 1 rail only Entrance Stairs-Rails Right Prior Function Level of [place] Independent with ADLs and functional transfers Vocational Unemployed Leisure running and walking Activity Tolerance Endurance Endurance does not limit participation in activity Sensation Light Touch No apparent deficits Coordination Movements are Fluid and Coordinated Yes Static Sitting Balance Static Sitting-Level of Assistance Independent Static Standing Balance Static Standing-Level of Assistance Independent;Distant supervision Transfers Transfer Yes Ambulation Ambulation Yes Ambulation 1 Surface 1 Level tile Device 1 No device Other Apparatus 1 Other (Comment) Knee immobilizer Assistance 1 Close supervision Quality of Gait 1 antalgic pattern, circumduction present in swing due to no knee flexion performed, knee remained extended throughout cycle. Comments/Distance (ft) 1 at least 150' RUE Assessment RUE Assessment WFL LUE Assessment LUE Assessment WFL RLE Assessment RLE Assessment WFL LLE Assessment LLE Assessment X Strength LLE L Hip Flexion 4/5 L Hip Extension 4/5 L Hip ABduction 4/5 L Hip ADduction 4-/5 L Knee Flexion 3+/5 L Knee Extension 4/5 L Ankle Dorsiflexion 5/5 Treatment: See Outpatient PT Treatment Flowsheet Assessment: Pt presents with decreased strength and decreased functional mobility. Patient with painwith activities. She has decreased stability of her knee. Pt will benefit from skilled PT intervention to prepare her for surgical intervention and to start her recovery now with muscle strengthening. Rehab potential: good Facilitators to goal achievement: Good family support, High motivation, Adequate resources for care and Previous Functional Ability Barriers to goal achievement: Pain Short Term Goals: To be met in 4 visits: 1. Pt will be Ind with HEP focusing on strengthening 2. Patient will be able to increase strength by 1/2 grade to improve mobility. Nursing Home Goals: To be met in 6 visits: 1. Patient will be able to ascend/descend stairs with decreased knee pain symptoms. 2. Pt will be prepared for surgery and will be ready to perform exercises pre op and post operatively. 3. Pt will have scheduled for post op therapy Plan of Care There ex, there act, pain management, and modalities prn Frequency: 2x/week Duration: 6 sessions I have discussed the risks and benefits of the above plan with Matt Avila. She is aware of thediagnosis and potential to improve. She participated in the setting of the goals and understands the importance of complying with the treatment plan, including home instruction. She agreed to the above frequency and duration of rehab services. Patient- Family Teaching: Patient and Significant other provided with preferred teaching of verbal information, written information and demonstration on HEP, PT POC, and healing times. Shows readinessto learn. Verbal instruction and Written material teaching provided. Individual is able to read and verbalizes understanding of teaching provided and accurately returns demonstration of skill. Lyssa Womack, PT [place] PT License [id number] [facility] Rehabilitation Services Department (phone) (fax) documented in this encounter Plan of Treatment Date Type Specialty Care Team Description 12/18/2018 Ancillary Visit Physical Therapy Lyssa Stein, PT [address] [place] [address] 12/20/2018 Ancillary Visit Physical Therapy Lyssa Stein, PT [address] [place] [address] 12/25/2018 Ancillary Visit Physical Therapy Lyssa Stein, PT [address] [place] [address] 12/27/2018 Ancillary Visit Physical Therapy Krupa Mcqueen, SEMICONDUCTOR DIES LOADER [address] [place] [address] 01/05/2019 Office Visit Orthopedic Surgery Dimas Castro MD [address] [place] [address] [id number] [place] [address] [phone] 01/11/2019 Hospital Surgery Dimas Castro MD Rupture of anterior Encounter [address] cruciate ligame nt of [id number] left knee, [place] encounter [address] [phone] 01/11/2019 Surgery Surgery Dimas Castro MD ANTERIOR CRUCIATE [address] LIGAMENT [id number] [place]CTION [place], [place] [address] 01/26/2019 Office Visit Orthopedic Surgery Dimas Castro MD [address] [id number] [place], [place] [address] 02/21/2019 Office Visit Pulmonary Disease Armando Núñez MD [address] [id number] [place], [place] [id number] Health Maintenance Due Date Last Done Comments [...] Group Dates [place] [place] [id number] 2018-Prese [phone] [facility] [address] [place] [address] documented as of this encounter
--- OUTSIDE RECORDS SUMMARY | 2019-08-01 10:28 | XMS REPORT | Summary of Care ---
:1990 Author Organization [facility] - Health Address [address] [place] [address] Care Team Providers Name Role Phone Pcp, Patient Does Not Have A Primary Care Provider +1-000-00 0-0000 Encounter Details Date Type Department Care Team Description 12/13/2018 Orders Only [facility] Doctor Unassigned, No [address] [facility] [place] [address] [address] [place] [id number] Allergies Active Allergy Reactions Severity Noted Date Comments Codeine Other - See comments 11/09/2018 Moises dougherty documented as of this encounter (statuses as of 12/13/2018) Medications Medication Sig Dispensed Refills Start Date End Date Status traMADol 50 mg Take 1 tablet by 25 tablet 0 11/16/2018 Active tabletIndications: mouth every 8 Acute internal (eight) hours as derangement of right needed for Pain knee (scale 7-10) (can take tramadol. Can not take tylenol #3). documented as of this encounter (statuses as of 12/13/2018) Active Problems Problem Noted Date Rupture of anterior cruciate ligament of left knee, in itial encounter 11/29/2018 Overview: Added automatically from request for altagracia ahumaday [id number] documented as of this encounter (statuses as of 12/13/2018) Immunizations Name Administration Dates Next Due HPV [...] Surgery Dimas Castro MD [address] [id number] [place], [place] [address] 01/11/2019 Hospital Encounter Surgery Dimas Castro, Roge wheat of anterior MD cruciate ligament of [address] left knee, init ial [id number] encounter [place], [place] [id number] 01/11/2019 Surgery Surgery Dimas Castro ANTERIOR CRU CARLITO LERMA LIGAMENT [address] RECONSTRUCTION [id number] [place], [place] [phone] 01/26/2019 Office Visit Orthopedic Surgery Dimas Castro MD [address] [id number] [place], [place] [address] 02/21/2019 Office Visit Pulmonary Disease Armando Núñez MD [address] [id number] [place], [place] [phone] Health Maintenance Due Date Last Done Comments [...] Name Priority Date/Time Associated Diagnosis Comme nts CONSENT/REFUSAL FOR Routine 12/13/2018 1:50 PM DIAGNOSIS AND TREATMENT CDT ASSIGNMENT OF BENEFITS Routine 12/13/2018 1:50 PM CDT documented in this encounter Results Not on filedocumented in this encounter Insurance Payer Benefit Plan Subscriber ID Effective Phone Address Typ e / Group Dates GIULIANO NOBLES [id number] 2018-Prese [phone] [facility] PRIMARY CARE nt [address] [place] [address] [place] [place] [id number] 2018-Prese [phone] [facility] H [address] [facility] nt [address] [place] [address] documented as of this encounter
--- OUTSIDE RECORDS SUMMARY | 2019-08-01 10:28 | XMS REPORT | Summary of Care ---
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 Adult Primary Isabelle Ewing FNP Follow-up Care- [place] [address] [facility] [address] [place] [address] [place] [address] [phone] Allergies Active Allergy Reactions Severity Noted Date [...] Added automatically from request for altagracia sanders [id number] documented as of this encounter (statuses as of 12/01/2018) Immunizations Name Administration Dates Next Due HPV 05/06/2008 documented as of this encounter Social History Tobacco Use Types Packs/Day Years Used Date Current Every Day Smoker Cigarettes 1 8 Smokeless Tobacco: Never Used Comments: [facility] Alcohol Use Drinks/Week oz/Week Comments [...] Physical Therapy Joel Garnett MD [address] [place] [phone] Lyssa Stein, PT [address] [place] [address] 01/05/2019 Office Visit Orthopedic Surgery Dimas Castro MD [address] [id number] [place], [place] [address] 01/11/2019 Hospital Surgery Dimas Castro MD Rupture of anterior Encounter [address] cruciate ligame nt of [id number] left knee, initial [place], [place] encounter [id number] 01/11/2019 Surgery Surgery Dimas Castro MD ANTERIOR CRUCIATE [address] LIGAMENT [id number] REC[place]STRUCTION [place], [place] [address] 01/26/2019 Office Visit Orthopedic Surgery Dimas Castro MD [address] [id number] [place] [address] [phone] Health Maintenance Due Date Last Done Comments [...] Typ e / Group Dates GIULIANO NOBLES [id number] 2018-Prese [phone] PRIMARY CARE PRIMARY CARE nt [address] [place] [address] [place] [place] GIULIANO CORoberta [id number] 2018-Prese [phone] [facility] H C I H C nt [address] [facility] [address] documented as of this encounter
--- OUTSIDE RECORDS SUMMARY | 2019-08-01 10:28 | XMS REPORT | Summary of Care ---
:1990 Author Organization [facility] - Health Address [address] [place] [address] Care Team Providers Name Role Phone Pcp, Patient Does Not Have A Primary Care Provider +1-000-00 0-0000 Pcp, Does Not Have A Primary Care Provider Encounter Details Date Type Department Care Team Description 08/29/2018 Orders Only [facility] Doctor Unassigned, No 301 [facility] Name [place] [phone] [place] [address] Allergies Active Allergy Reactions Severity Noted Date Comments Codeine Other - See comments 11/09/2018 Moises leonardo and ravindra documented as of this encounter (statuses as of 12/05/2018) Medications No known medicationsdocumented as of this encounter (statuses as of 12/05/2018) Active Problems Problem Noted Date Rupture of anterior cruciate ligament of left knee, in itial encounter 11/29/2018 Overview: Added automatically from request for altagracia sanders [id number] documented as of this encounter (statuses as of 12/05/2018) Immunizations Name Administration Dates Next Due HPV 05/06/2008 documented as of this encounter Social History Tobacco Use Types Packs/Day Years Used Date Never Assessed Sex Assigned at Date Recorded Not on [...] Physical Therapy Joel Garnett MD [address] [place] [address] Lyssa Stein, PT [address] [place] [address] 01/05/2019 Office Visit Orthopedic Surgery Dimas Castro MD [address] [id number] [place], [place] [address] 01/11/2019 Hospital Surgery Dimas Castro MD Rupture of anterior Encounter [address] cruciate ligame nt of [id number] left knee, initial [place], [place] encounter [id number] 01/11/2019 Surgery Surgery Dimas Castro MD ANTERIOR CRUCIATE [address] LIGAMENT [id number] [place], [place] [address] 01/26/2019 Office Visit Orthopedic Surgery Dimas Castro MD [address] [id number] [place], [place] [address] Health Maintenance Due Date Last Done Comments [...] Name Priority Date/Time Associated Diagnosis Comme nts REFERRAL- Routine 08/29/2018 12:01 AM CDT REQUEST/RESPONSE documented in this encounter Results Not on filedocumented in this encounter
--- OUTSIDE RECORDS SUMMARY | 2019-08-01 10:28 | XMS REPORT | Summary of Care ---
:1990 Author Organization [facility] Address [address] [place] [address] Care Team Providers Name Role Phone Pcp, Patient Does Not Have A Primary Care Provider +1-000-00 0-0000 Reason for Visit (Routine) Status Reason Specialty Diagnoses / Procedures Referred By C ontact Referred To Contact Closed Radiology Diagnoses Lymphocytosis (symptomatic) D72.820 (ICD-10-CM) - Lymphocytosis (symptomatic) Isabelle Ewing FNP Adc X-Ray Procedures CONSULT/REFERRAL RADIOLOGY (NON [facility]) XR CHEST 2 VW CHG RADIOLOGIC EXAM CHEST 2 VIEWS XR CHEST 2 VW [id number] - CHG RADIOLOGIC EXAM CHEST 2 VIEWS [address] [place], [place] [address] [place], [place] Phone: [phone] Fax: [phone] [facility] Encounter Details Date Type Department Care Team Description 12/01/2018 Hospital Encounter [facility] Nathaly Franz FNP Arrived [facility] [address] [place] [address] [place] [address] [phone] Allergies Active Allergy Reactions Severity Noted Date Comments Codeine Other - See comments 11/09/2018 Moises leonardo and ravindra documented as of this encounter (statuses as of 12/02/2018) Medications Medication Sig Dispensed Refills Start Date End Date Status traMADol 50 mg Take 1 tablet by 25 tablet 0 11/16/2018 Active tabletIndications: mouth every 8 Acute internal (eight) hours as derangement of right needed for Pain knee (scale 7-10) (can take tramadol. Can not take tylenol #3). documented as of this encounter (statuses as of 12/02/2018) Active Problems Problem Noted Date Rupture of anterior cruciate ligament of left knee, in itial encounter 11/29/2018 Overview: Added automatically from request for altagracia sanders [id number] documented as of this encounter (statuses as of 12/02/2018) Immunizations Name Administration Dates Next Due HPV 05/06/2008 documented as of this encounter Social History Tobacco Use Types Packs/Day Years Used Date Current Every Day Smoker Cigarettes 1 8 Smokeless Tobacco: Never Used Comments: will discuss quitting at [facility] e date Alcohol Use Drinks/Week oz/Week [...] Physical Therapy Joel Garnett MD [address] [place] [phone] Lyssa Stein, PT [address] [place] [address] 01/05/2019 Office Visit Orthopedic Surgery Dimas Castro MD [address] [id number] [place], [place] [address] 01/11/2019 Hospital Surgery Dimas Castro MD Rupture of anterior Encounter [address] cruciate ligame nt of [id number] left knee, initial [place], [place] encounter [id number] 01/11/2019 Surgery Surgery Dimas Castro MD ANTERIOR CRUCIATE [address] LIGAMENT [id number] [place], [place] [address] 01/26/2019 Office Visit Orthopedic Surgery Dimas Castro MD [address] [id number] [place] [address] [phone] Health Maintenance Due Date Last Done Comments [...] Name Priority Date/Time Associated Diagnosis Comme nts XR CHEST 2 VW Routine 12/01/2018 11:47 AM Lymphocytosis Result s for this CDT procedure are i n the results section . documented in this encounter Results XR CHEST 2 VW (12/01/2018 11:47 AM CDT) Specimen Impressions Performed At Probable mild bronchitis. Follow-up recommended PACS/V R/DOSE Narrative Performed At * * * * * * * * ORIGINAL REPORT * * * * * * * * PACS/VR/DOSE CHEST 2 VIEWS: HISTORY:elevated white count without sx. Had ARS in May TECHNIQUE::PA and lateral views of t he chest are obtained. COMPARISON: 06/05/2018 FINDINGS: Slightly increased lung markings are seen in the lung bases. No focal consolidation is identified. The h eart size is normal. Slight prominence of the right lung is seen which may represe nt lymphadenopathy. No pleural effusion or pneumothorax is s een. Procedure Note [facility], Radiant Results Inft User - 2018 11:52 AM CDT * * * * * * * * ORIGINAL REPORT * * * * * * * * CHEST 2 VIEWS: HISTORY:elevated white count without sx. Had ARS in May TECHNIQUE:: PA and lateral views of the chest are obtained. COMPARISON: 06/05/2018 FINDINGS: Slightly increased lung markin gs are seen in the lung bases. No focal consolidation is identified. The h eart size is normal. Slight prominence of the right lung is seen whi ch may represent lymphadenopathy. No pleural effusion or pneumothorax is s een. IMPRESSION Probable mild bronchitis. Follow-up bonnie mmended Performing Organization Address City/State/Zipcode Phone Number PACS/VR/DOSE documented in this encounter Visit Diagnoses Diagnosis Lymphocytosis Lymphocytosis (symptomatic) documented in this encounter Insurance Payer Benefit Plan Subscriber ID Effective Phone Address Typ e / Group Dates [employer] [place] [employer] [place] [id number] 2018-Prese [phone] [facility] [address] C nt [address] [place] [address] documented as of this encounter
--- NOTE | 2019-08-01 11:20 | EDPHYS ---
Physician Documentation [facility] Name: Matt Avila Age: 29 yrs Sex: Female : 1990 Arrival Date: 08/01/2019 Time: 10:24 Bed 24 Private MD: ED Physician Carlos Rueda HPI: 07/31 11:09 This 29 yrs old Female presents to ER via Ambulatory with complaints of kdr Possible STI. 11:09 This 29 yrs old Female presents to ER via Ambulatory with complaints of kdr Possible STI. 11:09 The patient's has had a penile discharge for about a week. She has not had any kdr c/c of STD herself at this point and has not other c/o of any kind at this time. 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 - Social history:: Smoking status: Patient reports the use of cigarette tobacco products, smokes one pack cigarettes per day. ROS: 11:09 Constitutional: Negative for fever, chills, and weight loss, Eyes: Negative for injury, kdr pain, redness, and discharge. 11:09 : Positive for menstrual abnormality, missed period, Negative for injury or acute deformity, urinary symptoms, urinary frequency, small amounts, hematuria, pelvic pain, flank pain, burning with urination, difficulty urinating, bladder incontinence, vaginal discharge, vaginal itching, menstrual abnormality, missed period, testicular pain Exam: 11:09 Constitutional: This is a well developed, well nourished patient who is awake, alert, kdr and in no acute distress. Head/Face: Normocephalic, atraumatic. 11:09 : Exam negative for acute changes, dysuria, discharge, CVA tenderness, bladder tenderness. Vital Signs: 10:40 BP 134 / 85; Pulse 91; Resp 16; Temp 97.9; Pulse Ox 99% ; Weight 81.65 kg; Pain 0/10; jl7 MDM: 11:09 Data reviewed: vital signs, nurses notes. Counseling: I had a detailed discussion with kdr the patient and/or guardian regarding: the historical points, exam findings, and any diagnostic results supporting the discharge/admit diagnosis, the need for outpatient follow up. 11:19 Patient medically screened. kdr Administered Medications: No medications were administered Disposition: 08/01/19 11:19 Discharged to Home. Impression: Concern for STD. - Condition is Stable. - Discharge Instructions: Sexually Transmitted Disease, [id number]. - Medication Reconciliation Form, Thank You Letter form. - Follow up: Private Physician; When: 2 - 3 days; Reason: If symptoms return, Further diagnostic work-up, Recheck today's complaints, Continuance of care, Re-evaluation by your physician. - Problem is new. - Symptoms are resolved. Signatures: Dispatcher [employer] [facility] Carlos Rueda MD MD [facility] Lida Sinha RN RN iw Maikel Vasquez RN RN jl7 Corrections: (The following items were deleted from the chart) 11:08 10:52 Wet Prep+BA.LAB.BRZ ordered. [facility] EDMS 11:10 10:52 GC (Gonorr/Clamydia) Probe+R.LAB.BRZ ordered. [facility] EDMS 11:16 11:09 The patient's has been having yellow penile discharge for about a week. kdr He denies painful urination or other s/s of STI. States he has only had intercourse with his and that she is not having any symptoms other than post coital spotting. [facility] 11:16 11:09 Onset: The symptoms/episode began/occurred gradually, 1 week(s) ago, kdr [facility] 11:16 11:09 Severity of symptoms: At their worst the symptoms were very mild in the emergency [facility] the symptoms are unchanged [facility] 11:16 11:09 The patient has not experienced similar symptoms in the past, kdr [facility] 11: 11:09 The patient has not recently seen a physician, [facility] 11: 11:19 08/01/2019 11:19 Discharged to Home. Impression: Concern for STD. Condition is iw Stable. Forms are Medication Reconciliation Form, Thank You Letter, Antibiotic Education, Prescription Opioid Use. Follow up: Private Physician; When: 2 - 3 days; Reason: If symptoms return, Further diagnostic work-up, Recheck today's complaints, Continuance of care, Re-evaluation by your physician. Problem is new. Symptoms are resolved. kdr 11:27 11:20 08/01/2019 11:19 Discharged to Home. Impression: Concern for STD. Condition is iw Stable. Forms are Medication Reconciliation Form, Thank You Letter, Antibiotic Education, Prescription Opioid Use. Follow up: Private Physician; When: 2 - 3 days; Reason: If symptoms return, Further diagnostic work-up, Recheck today's complaints, Continuance of care, Re-evaluation by your physician. Problem is new. Symptoms are resolved. iw
--- NOTE | 2019-08-01 11:20 | ER ---
Nurse's Notes [facility] Name: Matt Avila Age: 29 yrs Sex: Female : 1990 Arrival Date: 08/01/2019 Time: 10:24 Bed 24 Private MD: Diagnosis: Concern for STD Presentation: 07/31 10:40 Chief complaint: Patient states: "My said he's having discharge and I just jl7 really need to get checked." Pt denies vaginal discharge, burning with urination, abdominal pain, fever. Coronavirus screen: Proceed with normal triage. Patient denies a cough. Patient denies shortness of breath or difficulty breathing. Patient denies measured and/or subjective temperature greater than 100.4F prior to today's visit. Patient denies travel on a cruise ship or to a country the [facility] currently lists as an affected area. Patient denies contact with known and/or suspected case of COVID-19. Ebola Screen: No symptoms or risks identified at this time. Initial Sepsis Screen: Does the patient meet any 2 criteria? No. Patient's initial sepsis screen is negative. Does the patient have a suspected source of infection? No. Patient's initial sepsis screen is negative. Risk Assessment: Do you want to hurt yourself or someone else? Patient reports no desire to harm self or others. Onset of symptoms is unknown. Care prior to arrival: None. 10:40 Method Of Arrival: Ambulatory jl7 10:40 Acuity: JACQUELINE 4 jl7 Triage Assessment: 10:42 General: Appears in no apparent distress. uncomfortable, Behavior is calm, cooperative, jl7 appropriate for age. Pain: Denies pain. Neuro: Level of Consciousness is awake, alert, obeys commands, Oriented to person, place, time, situation. Cardiovascular: Patient's skin is warm and dry. Respiratory: Airway is patent Respiratory effort is even, unlabored, Respiratory pattern is regular, symmetrical. GI: Patient currently denies diarrhea, nausea, vomiting. : Denies burning with urination, discharge, pain vaginal itching. Derm: Skin is pink, warm \\T\\ dry. 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 - Social history:: Smoking status: Patient reports the use of cigarette tobacco products, smokes one pack cigarettes per day. Screenin:19 Abuse screen: Denies threats or abuse. Denies injuries from another. Nutritional iw screening: No deficits noted. Tuberculosis screening: No symptoms or risk factors identified. Fall Risk None identified. Assessment: 11:00 General: Appears in no apparent distress. Neuro: Level of Consciousness is awake, iw alert, obeys commands, Oriented to person, place, time, situation, Moves all extremities. Full function. Cardiovascular: Patient's skin is warm and dry. Respiratory: Airway is patent. Derm: Skin is intact, is healthy with good turgor. Musculoskeletal: Range of motion: intact in all extremities. Vital Signs: 10:40 BP 134 / 85; Pulse 91; Resp 16; Temp 97.9; Pulse Ox 99% ; Weight 81.65 kg; Pain 0/10; jl7 ED Course: 10:24 Patient arrived in ED. ag5 10:42 Triage completed. jl7 10:42 Arm band placed on right wrist. jl7 10:50 Carlos Rueda MD is Attending Physician. kdr 11:00 Patient has correct armband on for positive identification. iw 11:17 Lida Sinha, RN is Primary Nurse. iw 11:19 No provider procedures requiring assistance completed. Patient did not have IV access iw during this emergency room visit. Administered Medications: No medications were administered Outcome: 11:19 Discharge ordered by . kdr 11:19 Medical screen evaluation completed per provider. Patient declined treatment. iw 11:20 Patient left the ED. iw 11:20 Condition: good iw 11:20 Discharge instructions given to Following a medical screening exam, the patient was provided information regarding alternative care sites and resources available per registration personnel. 11:27 Patient left the ED. iw Signatures: Carlos Rueda MD MD kdr Lida Sinha, RN RN iw Maikel Vasquez RN RN 7 Trina Low ag5
[2019-08-01 12:11] VITALS: BP 134/85; TEMP 97.9; O2SAT 99
== END 2019-08-01 11:27 | disposition home or self-care (01) ==
LOC: ER 10:22
DX: Z11.3 Encounter for screening for infections with a predominantly sexual mode of transmission (principal); F17.210 Nicotine dependence, cigarettes, uncomplicated
CPT/HCPCS: 99281